=== PATIENT | female | born 1940 | race Caucasian/White ===

== ENCOUNTER 2017-05-15 21:31 | Inpatient (IN) | payer MEDICARE ==
[~2017-05-15] VITALS: Ht 160 cm; Wt 48.5 kg
[2017-05-15 23:30] VITALS: BP 143/74
[2017-05-16] VITALS (25 sets, daily range): BP systolic 89–172; BP diastolic 57–107
[2017-05-16] MEDS ORDERED: THIAMINE 100 MG in IV NORMAL SALINE 50ML 50 ML IV ONE (00:15)
[2017-05-16 00:24] LABS: BASO % 0 % (0-3); EOS % 0 % (0-3); HEMATOCRIT 38.1 % (36.0-47.0); HEMOGLOBIN 13.4 g/dL (12.0-15.5); LYMPH # 0.6 x10^3/uL (1.0-4.8); LYMPH % 5 % (24-48); MEAN CORPUSCULAR HEMOGLOBIN 31 pg (25-35); MEAN CORPUSCULAR HGB CONC 35 g/dL (31-37); MEAN CORPUSCULAR VOLUME 88 fL (79-100); MONO % 7 % (0-9); NEUT % 88 % (31-73); PLATELET COUNT 172 x10^3/uL (140-400); RED BLOOD COUNT 4.31 x10^6/uL (3.50-5.40); RED CELL DISTRIBUTION WIDTH 12.4 % (11.5-14.5); WHITE BLOOD COUNT 13.3 x10^3/uL (4.0-11.0)
[2017-05-16 00:40] LABS: ALBUMIN/GLOBULIN RATIO 0.8 (1.0-1.7); CREATININE 0.9 mg/dL (0.6-1.0); TOTAL BILIRUBIN 1.5 mg/dL (0.2-1.0)
[2017-05-16 00:45] LABS: POTASSIUM 2.7 mmol/L (3.5-5.1)
[2017-05-16] MEDS ORDERED: SODIUM CHLORIDE 3 % 300 ML IV ONE (01:15)
[2017-05-16] MEDS ORDERED: SODIUM CHLORIDE 3 % 500 ML IV ONE (01:30)
[2017-05-16] MEDS: IV NORMAL SALINE 1000ML BAG 1,000 ML IV SCH ×3 (01:36→20:43)
[2017-05-16] MEDS: POTASSIUM CHLORIDE 10MEQ 100 ML IV SCH ×6 (02:01→23:02)
[2017-05-16] MEDS ORDERED: METO50TA2 PO (04:29)
[2017-05-16] MEDS ORDERED: CRESTOR20 MG PO (04:29)
[2017-05-16] MEDS ORDERED: GABA-586 PO (04:29)
[2017-05-16] MEDS ORDERED: IRBE300T3 PO (04:29)
[2017-05-16] MEDS ORDERED: HYDR25TA9 PO (04:29)
[2017-05-16 09:56] LABS: CALCIUM 8.9 mg/dL (8.5-10.1); CREATININE 0.9 mg/dL (0.6-1.0); POTASSIUM 3.6 mmol/L (3.5-5.1)
--- NOTE | 2017-05-16 11:00 | PDOC1 ---
History and Physical Date of Admission Date of Admission DATE: 05/16/17 TIME: 0900 Identification/Chief Complaint Chief Complaint Found down Hyponatremia Problems: Source Source: Chart review History of Present Illness History of Present Illness Mrs Orozco is a 76 y/o woman who had been found down on the by her son at home, barely responsive, and had been brought to the ER at [facility]. There, her labs revealed a sodium of 107, and pt was emergently transferred to the ICU at [facility]. According to ER records, son had seen patient the the morning and she had been up and talking, stating to was going to lie down. At [facility], she was responsive to some degree, but not oriented, moving about constantly, complaining of headache. Per son, she is taking her prescription meds, incl BP meds "as needed". she has a distant history of alcohol abuse, apparently not recent. Past Medical History Past Medical History unable to obtain, pt obtunded Cardiovascular: HTN, Other (AAA repair) Heme/Onc: Cancer (colon) Musculoskeletal: low back pain Family History Family History: Family History Unknown Current Medications Current Medications Current Medications Thiamine HCl 100 mg/Sodium Chloride 51 ml @ 102 mls/hr 1X ONCE IV Last administered on 05/16/17 01:36; Start 05/16/17 at 00:15; Stop 05/16/17 at 00:44 ; Status DC Lorazepam (Ativan) 0.5 mg PRN Q4HRS PRN IV ANXIETY / AGITATION; Start 05/16/17 at 00:00 Lorazepam (Ativan) 1 mg PRN Q4HRS PRN IV ANXIETY / AGITATION Last administered on 05/16/17 01:53; Start 05/16/17 at 00:00 Sodium Chloride 1,000 ml @ 125 mls/hr Q8H IV Last administered on 05/16/17 01 :36; Start 05/16/17 at 00:00 Sodium Chloride 500 ml @ 50 mls/hr 1X ONCE IV ; Start 05/16/17 at 01:30; Stop 05/16/17 at 07:48; Status DC Sodium Chloride 300 ml @ 50 mls/hr 1X ONCE IV Last administered on 05/16/17 01:28; Start 05/16/17 at 01:15; Stop 05/16/17 at 07:14; Status DC Potassium Chloride 100 ml @ 100 mls/hr Q1H IV Last administered on 05/16/17t 06:33; Start 05/16/17 at 01:30; Stop 05/16/17 at 05:29; Status DC Active Scripts Active Reported Gabapentin 300 Mg Capsule 300 Mg PO DAILY PRN Irbesartan 300 Mg Tablet 1 Tab PO DAILY Crestor (Rosuvastatin Calcium) 20 Mg Tablet 1 Tab PO DAILY Hydrochlorothiazide Tablet (Hydrochlorothiazide) 25 Mg Tablet 1 Tab PO DAILY Metoprolol Tartrate 50 Mg Tablet 1 Tab PO BID Allergies Allergies: Coded Allergies: No Known Drug Allergies (Unverified , 05/16/17) ROS Review of System unable to obtain, obtunded Physical Exam General: Other (obtunded, no sensical rverbal responses) HEENT: Atraumatic, EOMI Heart: RRR Abdomen: Normal bowel sounds, Soft, No tenderness Extremities: No clubbing, No cyanosis, No edema, Other (moves all) Skin: No rashes Neuro: Normal tone Psych/Mental Status: Other (obtunded) Vitals Vitals Vital Signs Date Time Temp Pulse Resp B/P (MAP) Pulse Ox O2 Delivery O2 Flow Rate FiO2 05/16/17 07:00 76 18 155/107 (123) 95 Room Air 05/16/17 04:00 98.1 98.1 Labs Labs Laboratory Tests Test 05/16/17 00:15 05/16/17 09:10 White Blood Count 13.3 x10^3/uL (4.0-11.0) Red Blood Count 4.31 x10^6/uL (3.50-5.40) Hemoglobin 13.4 g/dL (12.0-15.5) Hematocrit 38.1 % (36.0-47.0) Mean Corpuscular Volume 88 fL (79-100) Mean Corpuscular Hemoglobin 31 pg (25-35) Mean Corpuscular Hemoglobin Concent 35 g/dL (31-37) Red Cell Distribution Width 12.4 % (11.5-14.5) Platelet Count 172 x10^3/uL (140-400) Neutrophils (%) (Auto) 88 % (31-73) Lymphocytes (%) (Auto) 5 % (24-48) Monocytes (%) (Auto) 7 % (0-9) Eosinophils (%) (Auto) 0 % (0-3) Basophils (%) (Auto) 0 % (0-3) Neutrophils # (Auto) 11.8 x10^3uL (1.8-7.7) Lymphocytes # (Auto) 0.6 x10^3/uL (1.0-4.8) Monocytes # (Auto) 0.9 x10^3/uL (0.0-1.1) Eosinophils # (Auto) 0.0 x10^3/uL (0.0-0.7) Basophils # (Auto) 0.0 x10^3/uL (0.0-0.2) Sodium Level 101 mmol/L (136-145) 107 mmol/L (136-145) Potassium Level 2.7 mmol/L (3.5-5.1) 3.6 mmol/L (3.5-5.1) Chloride Level 69 mmol/L (98-107) 77 mmol/L (98-107) Carbon Dioxide Level 21 mmol/L (21-32) 25 mmol/L (21-32) Anion Gap 11 (6-14) 5 (6-14) Blood Urea Nitrogen 15 mg/dL (7-20) 12 mg/dL (7-20) Creatinine 0.9 mg/dL (0.6-1.0) 0.9 mg/dL (0.6-1.0) Estimated GFR (Cockcroft-Gault) 61.0 61.0 BUN/Creatinine Ratio 17 (6-20) Glucose Level 129 mg/dL (70-99) 116 mg/dL (70-99) Lactic Acid Level 2.0 mmol/L (0.4-2.0) Calcium Level 9.0 mg/dL (8.5-10.1) 8.9 mg/dL (8.5-10.1) Total Bilirubin 1.5 mg/dL (0.2-1.0) Aspartate Amino Transf (AST/SGOT) 63 U/L (15-37) Alanine Aminotransferase (ALT/SGPT) 28 U/L (14-59) Alkaline Phosphatase 114 U/L (46-116) Total Protein 7.0 g/dL (6.4-8.2) Albumin 3.0 g/dL (3.4-5.0) Albumin/Globulin Ratio 0.8 (1.0-1.7) Laboratory Tests Test 05/16/17 00:15 05/16/17 09:10 White Blood Count 13.3 x10^3/uL (4.0-11.0) Red Blood Count 4.31 x10^6/uL (3.50-5.40) Hemoglobin 13.4 g/dL (12.0-15.5) Hematocrit 38.1 % (36.0-47.0) Mean Corpuscular Volume 88 fL (79-100) Mean Corpuscular Hemoglobin 31 pg (25-35) Mean Corpuscular Hemoglobin Concent 35 g/dL (31-37) Red Cell Distribution Width 12.4 % (11.5-14.5) Platelet Count 172 x10^3/uL (140-400) Neutrophils (%) (Auto) 88 % (31-73) Lymphocytes (%) (Auto) 5 % (24-48) Monocytes (%) (Auto) 7 % (0-9) Eosinophils (%) (Auto) 0 % (0-3) Basophils (%) (Auto) 0 % (0-3) Neutrophils # (Auto) 11.8 x10^3uL (1.8-7.7) Lymphocytes # (Auto) 0.6 x10^3/uL (1.0-4.8) Monocytes # (Auto) 0.9 x10^3/uL (0.0-1.1) Eosinophils # (Auto) 0.0 x10^3/uL (0.0-0.7) Basophils # (Auto) 0.0 x10^3/uL (0.0-0.2) Sodium Level 101 mmol/L (136-145) 107 mmol/L (136-145) Potassium Level 2.7 mmol/L (3.5-5.1) 3.6 mmol/L (3.5-5.1) Chloride Level 69 mmol/L (98-107) 77 mmol/L (98-107) Carbon Dioxide Level 21 mmol/L (21-32) 25 mmol/L (21-32) Anion Gap 11 (6-14) 5 (6-14) Blood Urea Nitrogen 15 mg/dL (7-20) 12 mg/dL (7-20) Creatinine 0.9 mg/dL (0.6-1.0) 0.9 mg/dL (0.6-1.0) Estimated GFR (Cockcroft-Gault) 61.0 61.0 BUN/Creatinine Ratio 17 (6-20) Glucose Level 129 mg/dL (70-99) 116 mg/dL (70-99) Lactic Acid Level 2.0 mmol/L (0.4-2.0) Calcium Level 9.0 mg/dL (8.5-10.1) 8.9 mg/dL (8.5-10.1) Total Bilirubin 1.5 mg/dL (0.2-1.0) Aspartate Amino Transf (AST/SGOT) 63 U/L (15-37) Alanine Aminotransferase (ALT/SGPT) 28 U/L (14-59) Alkaline Phosphatase 114 U/L (46-116) Total Protein 7.0 g/dL (6.4-8.2) Albumin 3.0 g/dL (3.4-5.0) Albumin/Globulin Ratio 0.8 (1.0-1.7) VTE Prophylaxis Ordered VTE Prophylaxis Devices: Yes VTE Pharmacological Prophylaxi: Yes Assessment/Plan Assessment/Plan Mrs Orozco is a 76 y/o woman with minor medical problems, who was found with altered mental status due to sever hyponatremia. She has received 300ml of hypertonic saline with some improvement of her sodium from 101 to 107. Start NS at 125ml/h for now, check lytes q6h for now. avoid rapid correction of Na, as length of time of hyponatremia is unknown, but presumed prolonged. Etiology of low sodium is unclear. All other labs are completely normal. will obtain urine sodium, ADH, cortisol, TSH. CT head was negative for acute findings. suspicion of toxic ingestion is given. nephrology has been consulted. Status is critical; prognosis is guarded WISAM GLASS MD May 16, 2017 10:59
[2017-05-16] MEDS ORDERED: ONDANSETRON PF 4 MG/2 ML VIAL. IV PRN (11:15)
[2017-05-16] MEDS ORDERED: 0.9 % SODIUM CHLORIDE 10 ML DISP.SYRIN. IV PRN (11:15)
[2017-05-16] MEDS: ENOXAPARIN 40 MG/0.4 ML SYRINGE. SQ SCH (11:30)
--- NOTE | 2017-05-16 12:15 | PDOC2 ---
CONSULT Date of Consult Date of Consult DATE: 05/16/17 TIME: 12:09 Reason for Consult Reason for Consult: LOW NA Referring Physician Referring Physician: NILESH Identification/Chief Complaint Chief Complaint CONFUSION Problems: Source Source: Chart review History of Present Illness Reason for Visit: THIS IS A 76 YR OLD TAKEN TO [facility] IN [place] WITH CONFUSION. SHE IS NOTED TO HAVE A NA OF 107 THERE AND THEN TRANSFERRED TO [facility] ICU. PER FAMILY SHE IS USUALLY ALERT AND ORIENTED AND LIVES WITH HER SON AND IS ABLE TO DO ADL WITHOUT ANY PROBLEMS. MEDS REVIEWED AND SHE IS NOTED TO BE ON HCTZ. REPEAT NA HERE WAS 101. SHE WAS GIVEN SOME 3% SALINE WHICH IMPROVED NA BACK TO 107 Past Medical History Cardiovascular: HTN, Other (AAA repair) Heme/Onc: Cancer (colon) Musculoskeletal: low back pain Family History Family History: No Significant, Family History Unknown Social History Lives: with Family Current Medications Current Medications Current Medications Thiamine HCl 100 mg/Sodium Chloride 51 ml @ 102 mls/hr 1X ONCE IV Last administered on 05/16/17 01:36; Start 05/16/17 at 00:15; Stop 05/16/17 at 00:44 ; Status DC Lorazepam (Ativan) 0.5 mg PRN Q4HRS PRN IV ANXIETY / AGITATION; Start 05/16/17 at 00:00 Lorazepam (Ativan) 1 mg PRN Q4HRS PRN IV ANXIETY / AGITATION Last administered on 05/16/17 01:53; Start 05/16/17 at 00:00 Sodium Chloride 1,000 ml @ 125 mls/hr Q8H IV Last administered on 05/16/17 01 :36; Start 05/16/17 at 00:00 Sodium Chloride 500 ml @ 50 mls/hr 1X ONCE IV ; Start 05/16/17 at 01:30; Stop 05/16/17 at 07:48; Status DC Sodium Chloride 300 ml @ 50 mls/hr 1X ONCE IV Last administered on 05/16/17 01:28; Start 05/16/17 at 01:15; Stop 05/16/17 at 07:14; Status DC Potassium Chloride 100 ml @ 100 mls/hr Q1H IV Last administered on 05/16/17 06:33; Start 05/16/17 at 01:30; Stop 05/16/17 at 05:29; Status DC Ondansetron HCl (Zofran) 4 mg PRN Q6HRS PRN IV NAUSEA/VOMITING; Start 05/16/17 at 11:15 Enoxaparin Sodium (Lovenox 40mg Syringe) 40 mg Q24H SQ ; Start 05/16/17 at 11:30 Sodium Chloride (Normal Saline Flush) 3 ml QSHIFT PRN IV AFTER MEDS AND BLOOD DRAWS; Start 05/16/17 at 11:15 Active Scripts Active Reported Gabapentin 300 Mg Capsule 300 Mg PO DAILY PRN Irbesartan 300 Mg Tablet 1 Tab PO DAILY Crestor (Rosuvastatin Calcium) 20 Mg Tablet 1 Tab PO DAILY Hydrochlorothiazide Tablet (Hydrochlorothiazide) 25 Mg Tablet 1 Tab PO DAILY Metoprolol Tartrate 50 Mg Tablet 1 Tab PO BID Allergies Allergies: Coded Allergies: No Known Drug Allergies (Unverified , 05/16/17) ROS Review of System UNABLE TO OBTAIN Physical Exam General: Cooperative, No acute distress HEENT: Atraumatic, PERRLA Lungs: Clear to auscultation Heart: Regular rate, Normal S1, No murmurs Abdomen: Normal bowel sounds Skin: No breakdown Neuro: Other (CONFUSED) Psych/Mental Status: Other (CONFUSED) MUSCULOSKELETAL: Other (DIFFUSE MUSCULAR ATROPHY) Vitals VITALS Vital Signs Date Time Temp Pulse Resp B/P (MAP) Pulse Ox O2 Delivery O2 Flow Rate FiO2 05/16/17 10:00 78 19 130/73 (92) 95 Room Air 05/16/17 09:00 98.7 98.7 Labs Labs Laboratory Tests Test 05/16/17 00:15 05/16/17 03:15 05/16/17 09:10 White Blood Count 13.3 x10^3/uL (4.0-11.0) Red Blood Count 4.31 x10^6/uL (3.50-5.40) Hemoglobin 13.4 g/dL (12.0-15.5) Hematocrit 38.1 % (36.0-47.0) Mean Corpuscular Volume 88 fL (79-100) Mean Corpuscular Hemoglobin 31 pg (25-35) Mean Corpuscular Hemoglobin Concent 35 g/dL (31-37) Red Cell Distribution Width 12.4 % (11.5-14.5) Platelet Count 172 x10^3/uL (140-400) Neutrophils (%) (Auto) 88 % (31-73) Lymphocytes (%) (Auto) 5 % (24-48) Monocytes (%) (Auto) 7 % (0-9) Eosinophils (%) (Auto) 0 % (0-3) Basophils (%) (Auto) 0 % (0-3) Neutrophils # (Auto) 11.8 x10^3uL (1.8-7.7) Lymphocytes # (Auto) 0.6 x10^3/uL (1.0-4.8) Monocytes # (Auto) 0.9 x10^3/uL (0.0-1.1) Eosinophils # (Auto) 0.0 x10^3/uL (0.0-0.7) Basophils # (Auto) 0.0 x10^3/uL (0.0-0.2) Sodium Level 101 mmol/L (136-145) 107 mmol/L (136-145) Potassium Level 2.7 mmol/L (3.5-5.1) 3.6 mmol/L (3.5-5.1) Chloride Level 69 mmol/L (98-107) 77 mmol/L (98-107) Carbon Dioxide Level 21 mmol/L (21-32) 25 mmol/L (21-32) Anion Gap 11 (6-14) 5 (6-14) Blood Urea Nitrogen 15 mg/dL (7-20) 12 mg/dL (7-20) Creatinine 0.9 mg/dL (0.6-1.0) 0.9 mg/dL (0.6-1.0) Estimated GFR (Cockcroft-Gault) 61.0 61.0 BUN/Creatinine Ratio 17 (6-20) Glucose Level 129 mg/dL (70-99) 116 mg/dL (70-99) Lactic Acid Level 2.0 mmol/L (0.4-2.0) Calcium Level 9.0 mg/dL (8.5-10.1) 8.9 mg/dL (8.5-10.1) Total Bilirubin 1.5 mg/dL (0.2-1.0) Aspartate Amino Transf (AST/SGOT) 63 U/L (15-37) Alanine Aminotransferase (ALT/SGPT) 28 U/L (14-59) Alkaline Phosphatase 114 U/L (46-116) Total Protein 7.0 g/dL (6.4-8.2) Albumin 3.0 g/dL (3.4-5.0) Albumin/Globulin Ratio 0.8 (1.0-1.7) Urine Sodium 73 mmol/L (Not Estab.) Urine Potassium 73.7 mmol/L (Not Estab.) Urine Chloride 85 mmol/L (Not Estab.) Laboratory Tests Test 05/16/17 00:15 05/16/17 03:15 05/16/17 09:10 White Blood Count 13.3 x10^3/uL (4.0-11.0) Red Blood Count 4.31 x10^6/uL (3.50-5.40) Hemoglobin 13.4 g/dL (12.0-15.5) Hematocrit 38.1 % (36.0-47.0) Mean Corpuscular Volume 88 fL (79-100) Mean Corpuscular Hemoglobin 31 pg (25-35) Mean Corpuscular Hemoglobin Concent 35 g/dL (31-37) Red Cell Distribution Width 12.4 % (11.5-14.5) Platelet Count 172 x10^3/uL (140-400) Neutrophils (%) (Auto) 88 % (31-73) Lymphocytes (%) (Auto) 5 % (24-48) Monocytes (%) (Auto) 7 % (0-9) Eosinophils (%) (Auto) 0 % (0-3) Basophils (%) (Auto) 0 % (0-3) Neutrophils # (Auto) 11.8 x10^3uL (1.8-7.7) Lymphocytes # (Auto) 0.6 x10^3/uL (1.0-4.8) Monocytes # (Auto) 0.9 x10^3/uL (0.0-1.1) Eosinophils # (Auto) 0.0 x10^3/uL (0.0-0.7) Basophils # (Auto) 0.0 x10^3/uL (0.0-0.2) Sodium Level 101 mmol/L (136-145) 107 mmol/L (136-145) Potassium Level 2.7 mmol/L (3.5-5.1) 3.6 mmol/L (3.5-5.1) Chloride Level 69 mmol/L (98-107) 77 mmol/L (98-107) Carbon Dioxide Level 21 mmol/L (21-32) 25 mmol/L (21-32) Anion Gap 11 (6-14) 5 (6-14) Blood Urea Nitrogen 15 mg/dL (7-20) 12 mg/dL (7-20) Creatinine 0.9 mg/dL (0.6-1.0) 0.9 mg/dL (0.6-1.0) Estimated GFR (Cockcroft-Gault) 61.0 61.0 BUN/Creatinine Ratio 17 (6-20) Glucose Level 129 mg/dL (70-99) 116 mg/dL (70-99) Lactic Acid Level 2.0 mmol/L (0.4-2.0) Calcium Level 9.0 mg/dL (8.5-10.1) 8.9 mg/dL (8.5-10.1) Total Bilirubin 1.5 mg/dL (0.2-1.0) Aspartate Amino Transf (AST/SGOT) 63 U/L (15-37) Alanine Aminotransferase (ALT/SGPT) 28 U/L (14-59) Alkaline Phosphatase 114 U/L (46-116) Total Protein 7.0 g/dL (6.4-8.2) Albumin 3.0 g/dL (3.4-5.0) Albumin/Globulin Ratio 0.8 (1.0-1.7) Urine Sodium 73 mmol/L (Not Estab.) Urine Potassium 73.7 mmol/L (Not Estab.) Urine Chloride 85 mmol/L (Not Estab.) Assessment/Plan Assessment/Plan IMP HYPOVOLEMIA HYPONATREMIA MET ENCEPHALOPATHY PLAN ISOTONIC SALINE 3% SALINE OVER NIGHT URINE LYTES URINE OSMOLALITY HOLD THIAZIDE DIURETICS SEIZURE PRECAUTIONS D/W ATTENDING UPDATED FAMILY KEREN HAMEED MD May 16, 2017 12:15
[2017-05-16 12:49] LABS: CREATININE 0.8 mg/dL (0.6-1.0); GFR 69.9
[2017-05-16 12:51] LABS: POTASSIUM 4.1 mmol/L (3.5-5.1)
[2017-05-16 19:53] LABS: CALCIUM 10.1 mg/dL (8.5-10.1); CREATININE 0.7 mg/dL (0.6-1.0); GFR 81.6; POTASSIUM 3.2 mmol/L (3.5-5.1)
[2017-05-16] MEDS ORDERED: SODIUM CHLORIDE 3 % 200 ML IV ONE (21:00)
[2017-05-17] VITALS (24 sets, daily range): BP systolic 93–159; BP diastolic 55–98
[2017-05-17 01:48] LABS: CALCIUM 8.4 mg/dL (8.5-10.1); CREATININE 0.7 mg/dL (0.6-1.0); GFR 81.6; POTASSIUM 3.7 mmol/L (3.5-5.1)
[2017-05-17 06:48] LABS: BASO % 1 % (0-3); EOS % 0 % (0-3); HEMATOCRIT 33.9 % (36.0-47.0); HEMOGLOBIN 12.2 g/dL (12.0-15.5); LYMPH # 0.9 x10^3/uL (1.0-4.8); LYMPH % 9 % (24-48); MEAN CORPUSCULAR HEMOGLOBIN 32 pg (25-35); MEAN CORPUSCULAR HGB CONC 36 g/dL (31-37); MEAN CORPUSCULAR VOLUME 88 fL (79-100); MONO % 7 % (0-9); NEUT % 83 % (31-73); PLATELET COUNT 137 x10^3/uL (140-400); RED BLOOD COUNT 3.84 x10^6/uL (3.50-5.40); RED CELL DISTRIBUTION WIDTH 12.3 % (11.5-14.5); WHITE BLOOD COUNT 9.7 x10^3/uL (4.0-11.0)
[2017-05-17 06:56] LABS: ALBUMIN 2.9 g/dL (3.4-5.0); CALCIUM 8.3 mg/dL (8.5-10.1); CREATININE 0.6 mg/dL (0.6-1.0); GFR 97.5; POTASSIUM 3.5 mmol/L (3.5-5.1); TOTAL PROTEIN 5.9 g/dL (6.4-8.2)
[2017-05-17] MEDS: IV NORMAL SALINE 1000ML BAG 1,000 ML IV SCH ×2 (07:41→21:19)
--- NOTE | 2017-05-17 08:50 | RAD ---
Portable chest, 05/16/2017: History: Check PICC line placement No previous chest radiographs are available at this time for comparison purposes. A right PICC is in place extending into the upper aspect of the superior vena cava near the junction of the innominate veins. The heart size and pulmonary vascularity are normal. There is moderate calcific plaquing and tortuosity of the thoracic aorta. There appear to be minimal parenchymal scars. No acute infiltrate is seen. There is no evidence of pleural fluid. The bony structures are demineralized. IMPRESSION: 1. The right PICC extends into the upper aspect of the superior vena cava. 2. Moderate aortic atherosclerosis. 3. No acute abnormality is detected.
--- NOTE | 2017-05-17 09:11 | PDOC ---
PROGRESS NOTES Chief Complaint Chief Complaint Hyponatremia ASSESSMENT AND PLAN: 1. Hyponatremia: improving. increase IVF as increase has plateaued. urine sodium inappropriatly high, Cortisol appropriately high, TSH WNL. suspect diuretic O/D with pt's "as needed" medication habits. appreciate Dr Vazquez's help w/management 2. AMS: 2/2 above 3. Myositis: elevated CK, most likely 2/2 above 4. Hypokalemia: repletes as per protocol 5. Agitation: minimize sedation as possible 6. Prophylaxis: H2b, lovenox History of Present Illness History of Present Illness denies pain, very confused Vitals Vitals Vital Signs Date Time Temp Pulse Resp B/P (MAP) Pulse Ox O2 Delivery O2 Flow Rate FiO2 05/17/17 08:00 97.8 80 22 131/74 (93) 95 Room Air 97.8 Physical Exam General: Cooperative, No acute distress, Other (more awake, with hesitation can state her name. ) Heart: Regular rate, No murmurs Lungs: Clear Abdomen: Normal bowel sounds Extremities: No clubbing, No cyanosis, No edema, Other (moves all) Skin: No rashes Labs LABS Laboratory Tests Test 05/16/17 09:10 05/16/17 11:50 05/16/17 18:30 05/17/17 00:45 Sodium Level 107 mmol/L (136-145) 113 mmol/L (136-145) 110 mmol/L (136-145) 115 mmol/L (136-145) Potassium Level 3.6 mmol/L (3.5-5.1) 4.1 mmol/L (3.5-5.1) 3.2 mmol/L (3.5-5.1) 3.7 mmol/L (3.5-5.1) Chloride Level 77 mmol/L (98-107) 79 mmol/L (98-107) 80 mmol/L (98-107) 84 mmol/L (98-107) Carbon Dioxide Level 25 mmol/L (21-32) 27 mmol/L (21-32) 24 mmol/L (21-32) 24 mmol/L (21-32) Anion Gap 5 (6-14) 7 (6-14) 6 (6-14) 7 (6-14) Blood Urea Nitrogen 12 mg/dL (7-20) 11 mg/dL (7-20) 9 mg/dL (7-20) 8 mg/dL (7-20) Creatinine 0.9 mg/dL (0.6-1.0) 0.8 mg/dL (0.6-1.0) 0.7 mg/dL (0.6-1.0) 0.7 mg/dL (0.6-1.0) Estimated GFR (Cockcroft-Gault) 61.0 69.9 81.6 81.6 Glucose Level 116 mg/dL (70-99) 98 mg/dL (70-99) 102 mg/dL (70-99) 93 mg/dL (70-99) Calcium Level 8.9 mg/dL (8.5-10.1) 9.0 mg/dL (8.5-10.1) 10.1 mg/dL (8.5-10.1) 8.4 mg/dL (8.5-10.1) Thyroid Stimulating Hormone (TSH) 3.641 uIU/mL (0.358-3.74) Cortisol PM Sample 25.3 ug/dL (2.3-11.9) Test 05/17/17 06:20 White Blood Count 9.7 x10^3/uL (4.0-11.0) Red Blood Count 3.84 x10^6/uL (3.50-5.40) Hemoglobin 12.2 g/dL (12.0-15.5) Hematocrit 33.9 % (36.0-47.0) Mean Corpuscular Volume 88 fL (79-100) Mean Corpuscular Hemoglobin 32 pg (25-35) Mean Corpuscular Hemoglobin Concent 36 g/dL (31-37) Red Cell Distribution Width 12.3 % (11.5-14.5) Platelet Count 137 x10^3/uL (140-400) Neutrophils (%) (Auto) 83 % (31-73) Lymphocytes (%) (Auto) 9 % (24-48) Monocytes (%) (Auto) 7 % (0-9) Eosinophils (%) (Auto) 0 % (0-3) Basophils (%) (Auto) 1 % (0-3) Neutrophils # (Auto) 8.1 x10^3uL (1.8-7.7) Lymphocytes # (Auto) 0.9 x10^3/uL (1.0-4.8) Monocytes # (Auto) 0.7 x10^3/uL (0.0-1.1) Eosinophils # (Auto) 0.0 x10^3/uL (0.0-0.7) Basophils # (Auto) 0.0 x10^3/uL (0.0-0.2) Sodium Level 115 mmol/L (136-145) Potassium Level 3.5 mmol/L (3.5-5.1) Chloride Level 84 mmol/L (98-107) Carbon Dioxide Level 25 mmol/L (21-32) Anion Gap 6 (6-14) Blood Urea Nitrogen 7 mg/dL (7-20) Creatinine 0.6 mg/dL (0.6-1.0) Estimated GFR (Cockcroft-Gault) 97.5 BUN/Creatinine Ratio 12 (6-20) Glucose Level 89 mg/dL (70-99) Calcium Level 8.3 mg/dL (8.5-10.1) Total Bilirubin 1.0 mg/dL (0.2-1.0) Aspartate Amino Transf (AST/SGOT) 81 U/L (15-37) Alanine Aminotransferase (ALT/SGPT) 34 U/L (14-59) Alkaline Phosphatase 90 U/L (46-116) Creatine Kinase 765 U/L (26-192) Total Protein 5.9 g/dL (6.4-8.2) Albumin 2.9 g/dL (3.4-5.0) Albumin/Globulin Ratio 1.0 (1.0-1.7) WISAM GLASS MD May 17, 2017 09:11
[2017-05-17] MEDS: ENOXAPARIN 40 MG/0.4 ML SYRINGE. SQ SCH (12:09)
[2017-05-17 12:18] LABS: CALCIUM 8.6 mg/dL (8.5-10.1); CREATININE 0.6 mg/dL (0.6-1.0); GFR 97.5; POTASSIUM 3.4 mmol/L (3.5-5.1)
[2017-05-17 18:32] LABS: CREATININE 0.6 mg/dL (0.6-1.0); GFR 97.5; POTASSIUM 3.3 mmol/L (3.5-5.1)
[2017-05-17] MEDS: FAMOTIDINE 20 MG/2 ML VIAL IVP SCH (21:18)
[2017-05-18] VITALS (17 sets, daily range): BP systolic 121–155; BP diastolic 70–92
[2017-05-18 00:51] LABS: CALCIUM 8.1 mg/dL (8.5-10.1); CREATININE 0.6 mg/dL (0.6-1.0); GFR 97.5; POTASSIUM 3.2 mmol/L (3.5-5.1)
[2017-05-18] MEDS: IV NORMAL SALINE 1000ML BAG 1,000 ML IV SCH ×3 (05:25→20:57)
[2017-05-18 05:47] LABS: BASO # 0.1 x10^3/uL (0.0-0.2); BASO % 2 % (0-3); EOS % 1 % (0-3); HEMOGLOBIN 11.9 g/dL (12.0-15.5); LYMPH # 0.8 x10^3/uL (1.0-4.8); LYMPH % 11 % (24-48); MEAN CORPUSCULAR HEMOGLOBIN 32 pg (25-35); MEAN CORPUSCULAR HGB CONC 36 g/dL (31-37); MEAN CORPUSCULAR VOLUME 88 fL (79-100); MONO % 6 % (0-9); NEUT % 80 % (31-73); PLATELET COUNT 125 x10^3/uL (140-400); RED BLOOD COUNT 3.74 x10^6/uL (3.50-5.40); RED CELL DISTRIBUTION WIDTH 12.8 % (11.5-14.5); WHITE BLOOD COUNT 7.3 x10^3/uL (4.0-11.0)
[2017-05-18 06:10] LABS: CALCIUM 7.8 mg/dL (8.5-10.1); CREATININE 0.6 mg/dL (0.6-1.0); GFR 97.5; POTASSIUM 3.1 mmol/L (3.5-5.1)
--- NOTE | 2017-05-18 07:49 | PDOC ---
PROGRESS NOTES Chief Complaint Chief Complaint Hyponatremia ASSESSMENT AND PLAN: 1. Hyponatremia: improving. urine sodium inappropriatly high, Cortisol appropriately high, TSH WNL. suspect diuretic O/D with pt's "as needed" medication habits. on NS IVF. with fluid repletion, may need to switch to fluid restriction for SIADH 2. AMS: 2/2 above; much improved. still some memory issues, but able to hold conversation. 3. Agitation: resolved. 4. Hypokalemia: replete as per protocol 5. Myositis: elevated CK, most likely 2/2 above 6. Nutrition: NPO for now. speech eval today or tomorrow 7. Prophylaxis: H2b, lovenox History of Present Illness History of Present Illness denies pain, very confused Vitals Vitals Vital Signs Date Time Temp Pulse Resp B/P (MAP) Pulse Ox O2 Delivery O2 Flow Rate FiO2 05/18/17 06:00 69 16 135/92 (106) 96 Room Air 05/18/17 04:00 98.2 98.2 Physical Exam General: Alert, Cooperative, No acute distress Heart: Regular rate, No murmurs Lungs: Clear Abdomen: Normal bowel sounds Extremities: No clubbing, No edema Skin: No rashes Labs LABS Laboratory Tests Test 05/17/17 12:00 05/17/17 18:00 05/18/17 00:22 05/18/17 04:55 Sodium Level 118 mmol/L (136-145) 122 mmol/L (136-145) 122 mmol/L (136-145) 124 mmol/L (136-145) Potassium Level 3.4 mmol/L (3.5-5.1) 3.3 mmol/L (3.5-5.1) 3.2 mmol/L (3.5-5.1) 3.1 mmol/L (3.5-5.1) Chloride Level 85 mmol/L (98-107) 89 mmol/L (98-107) 90 mmol/L (98-107) 91 mmol/L (98-107) Carbon Dioxide Level 25 mmol/L (21-32) 25 mmol/L (21-32) 25 mmol/L (21-32) 25 mmol/L (21-32) Anion Gap 8 (6-14) 8 (6-14) 7 (6-14) 8 (6-14) Blood Urea Nitrogen 7 mg/dL (7-20) 6 mg/dL (7-20) 6 mg/dL (7-20) 6 mg/dL (7- 20) Creatinine 0.6 mg/dL (0.6-1.0) 0.6 mg/dL (0.6-1.0) 0.6 mg/dL (0.6-1.0) 0.6 mg/dL (0.6-1.0) Estimated GFR (Cockcroft-Gault) 97.5 97.5 97.5 97.5 Glucose Level 89 mg/dL (70-99) 80 mg/dL (70-99) 81 mg/dL (70-99) 76 mg/dL (70-99) Calcium Level 8.6 mg/dL (8.5-10.1) 8.0 mg/dL (8.5-10.1) 8.1 mg/dL (8.5-10.1) 7.8 mg/dL (8.5-10.1) Test 05/18/17 05:33 White Blood Count 7.3 x10^3/uL (4.0-11.0) Red Blood Count 3.74 x10^6/uL (3.50-5.40) Hemoglobin 11.9 g/dL (12.0-15.5) Hematocrit 33.0 % (36.0-47.0) Mean Corpuscular Volume 88 fL (79-100) Mean Corpuscular Hemoglobin 32 pg (25-35) Mean Corpuscular Hemoglobin Concent 36 g/dL (31-37) Red Cell Distribution Width 12.8 % (11.5-14.5) Platelet Count 125 x10^3/uL (140-400) Neutrophils (%) (Auto) 80 % (31-73) Lymphocytes (%) (Auto) 11 % (24-48) Monocytes (%) (Auto) 6 % (0-9) Eosinophils (%) (Auto) 1 % (0-3) Basophils (%) (Auto) 2 % (0-3) Neutrophils # (Auto) 5.8 x10^3uL (1.8-7.7) Lymphocytes # (Auto) 0.8 x10^3/uL (1.0-4.8) Monocytes # (Auto) 0.4 x10^3/uL (0.0-1.1) Eosinophils # (Auto) 0.1 x10^3/uL (0.0-0.7) Basophils # (Auto) 0.1 x10^3/uL (0.0-0.2) WISAM GLASS MD May 18, 2017 07:49
[2017-05-18] MEDS: ENOXAPARIN 40 MG/0.4 ML SYRINGE. SQ SCH (13:15)
[2017-05-18] MEDS ORDERED: POTASSIUM CHLORIDE 20 MEQ TABLET.ER. PO ONE (20:15)
[2017-05-18] MEDS: FAMOTIDINE 20 MG/2 ML VIAL IVP SCH (20:48)
[2017-05-18] MEDS: ATORVASTATIN CALCIUM 40 MG TABLET. PO SCH (20:48)
[2017-05-18] MEDS: METOPROLOL TART IMMED RELEASE 50 MG TABLET. PO SCH (20:49)
[2017-05-18] MEDS ORDERED: GABAPENTIN 300 MG CAPSULE. PO PRN (21:00)
--- NOTE | 2017-05-18 23:59 | PDOC ---
Provider Note Provider Note RENAL F/U : EDY S : More alert. No active CP, SOA or new c/o O : VSS BP better/stable Alert. Neck : Supple Lings : Decreased bases. Non labored. CVS : RRR Abd : Portly. No masses. Stable edema/trace. Neuro ; more alert. Labs reviewed. A/P : HYPONATREMIA HTN w CKD HYPOTENSION MENTAL STATUS CHANGES. Overall improved. Supportive care. Na now mid 120s Out of ICU Labs. Chris Snow M.D. CHRIS SNOW MD May 18, 2017 23:58
[2017-05-19 03:00] VITALS: BP 140/89
[2017-05-19 07:00] VITALS: BP 175/100
[2017-05-19 09:30] LABS: CREATININE 0.6 mg/dL (0.6-1.0); GFR 97.5
[2017-05-19] MEDS ORDERED: traMADol 50 MG TABLET PO PRN (09:30)
[2017-05-19] MEDS ORDERED: ACETAMINOPHEN 325 MG TABLET. PO PRN (09:30)
[2017-05-19] MEDS ORDERED: DOCUSATE SODIUM 100 MG CAPSULE. PO PRN (09:30)
[2017-05-19] MEDS ORDERED: MORPHINE SULFATE 2 MG/ML DISP.SYRIN. IV PRN (09:30)
[2017-05-19] MEDS ORDERED: hydrALAZINE 20 MG/ML VIAL. IVP PRN (09:30)
[2017-05-19] MEDS ORDERED: ONDANSETRON PF 4 MG/2 ML VIAL. IV PRN (09:30)
[2017-05-19 09:44] LABS: BASO # 0.1 x10^3/uL (0.0-0.2); BASO % 1 % (0-3); EOS % 2 % (0-3); HEMATOCRIT 32.8 % (36.0-47.0); HEMOGLOBIN 11.8 g/dL (12.0-15.5); LYMPH # 0.9 x10^3/uL (1.0-4.8); LYMPH % 11 % (24-48); MEAN CORPUSCULAR HEMOGLOBIN 32 pg (25-35); MEAN CORPUSCULAR HGB CONC 36 g/dL (31-37); MEAN CORPUSCULAR VOLUME 88 fL (79-100); MONO % 6 % (0-9); NEUT % 80 % (31-73); PLATELET COUNT 132 x10^3/uL (140-400); RED BLOOD COUNT 3.71 x10^6/uL (3.50-5.40); RED CELL DISTRIBUTION WIDTH 12.7 % (11.5-14.5); WHITE BLOOD COUNT 8.1 x10^3/uL (4.0-11.0)
[2017-05-19 09:52] LABS: POTASSIUM 2.7 mmol/L (3.5-5.1)
[2017-05-19] MEDS: METOPROLOL TART IMMED RELEASE 50 MG TABLET. PO SCH ×2 (09:53→20:41)
[2017-05-19] MEDS: LOSARTAN POTASSIUM 50 MG TABLET. PO SCH (09:53)
[2017-05-19] MEDS ORDERED: POTASSIUM CHLORIDE 20MEQ 50 ML IV ONE (10:30)
[2017-05-19] MEDS: POTASSIUM CHLORIDE 20MEQ 50 ML IV SCH ×2 (10:38→11:17)
[2017-05-19 11:00] VITALS: BP 150/87
[2017-05-19] MEDS: ENOXAPARIN 40 MG/0.4 ML SYRINGE. SQ SCH (11:18)
--- NOTE | 2017-05-19 11:23 | PDOC ---
PROGRESS NOTES Chief Complaint Chief Complaint Hyponatremia ASSESSMENT AND PLAN: 1. Hyponatremia: 2/2 low Salt intake likekly 2. AMS: 2/2 above; much improved. still some memory issues, but able to hold conversation. 3. Agitation: resolved. 4. Hypokalemia: replete as per protocol 5. Myositis: elevated CK, most likely 2/2 above plan: fu with renal change ivf to k + Ns 75cc/j bmp daily ptot plan dc tmr dc martell dvt , gi ppx History of Present Illness History of Present Illness looks tired mild confused Vitals Vitals Vital Signs Date Time Temp Pulse Resp B/P (MAP) Pulse Ox O2 Delivery O2 Flow Rate FiO2 05/19/17 11:00 97.7 73 18 150/87 (108) 92 Room Air 97.7 Physical Exam General: Alert, Cooperative, No acute distress Heart: Regular rate, No murmurs Lungs: Clear Abdomen: Normal bowel sounds Extremities: No clubbing, No edema Skin: No rashes Labs LABS Laboratory Tests Test 05/18/17 12:20 05/18/17 18:10 05/19/17 00:15 05/19/17 08:50 Sodium Level 125 mmol/L (136-145) 126 mmol/L (136-145) 127 mmol/L (136-145) 130 mmol/L (136-145) White Blood Count 8.1 x10^3/uL (4.0-11.0) Red Blood Count 3.71 x10^6/uL (3.50-5.40) Hemoglobin 11.8 g/dL (12.0-15.5) Hematocrit 32.8 % (36.0-47.0) Mean Corpuscular Volume 88 fL (79-100) Mean Corpuscular Hemoglobin 32 pg (25-35) Mean Corpuscular Hemoglobin Concent 36 g/dL (31-37) Red Cell Distribution Width 12.7 % (11.5-14.5) Platelet Count 132 x10^3/uL (140-400) Neutrophils (%) (Auto) 80 % (31-73) Lymphocytes (%) (Auto) 11 % (24-48) Monocytes (%) (Auto) 6 % (0-9) Eosinophils (%) (Auto) 2 % (0-3) Basophils (%) (Auto) 1 % (0-3) Neutrophils # (Auto) 6.4 x10^3uL (1.8-7.7) Lymphocytes # (Auto) 0.9 x10^3/uL (1.0-4.8) Monocytes # (Auto) 0.5 x10^3/uL (0.0-1.1) Eosinophils # (Auto) 0.2 x10^3/uL (0.0-0.7) Basophils # (Auto) 0.1 x10^3/uL (0.0-0.2) Potassium Level 2.7 mmol/L (3.5-5.1) Chloride Level 96 mmol/L (98-107) Carbon Dioxide Level 26 mmol/L (21-32) Anion Gap 8 (6-14) Blood Urea Nitrogen 5 mg/dL (7-20) Creatinine 0.6 mg/dL (0.6-1.0) Estimated GFR (Cockcroft-Gault) 97.5 Glucose Level 103 mg/dL (70-99) Calcium Level 8.0 mg/dL (8.5-10.1) Review of Systems Review of Systems no fever, chills, sob or chest pain Comment Review of Relevant I have reviewed the following items yanet (where applicable) has been applied. Labs Laboratory Tests Test 05/17/17 12:00 05/17/17 18:00 05/18/17 00:22 05/18/17 04:55 Sodium Level 118 mmol/L (136-145) 122 mmol/L (136-145) 122 mmol/L (136-145) 124 mmol/L (136-145) Potassium Level 3.4 mmol/L (3.5-5.1) 3.3 mmol/L (3.5-5.1) 3.2 mmol/L (3.5-5.1) 3.1 mmol/L (3.5-5.1) Chloride Level 85 mmol/L (98-107) 89 mmol/L (98-107) 90 mmol/L (98-107) 91 mmol/L (98-107) Carbon Dioxide Level 25 mmol/L (21-32) 25 mmol/L (21-32) 25 mmol/L (21-32) 25 mmol/L (21-32) Anion Gap 8 (6-14) 8 (6-14) 7 (6-14) 8 (6-14) Blood Urea Nitrogen 7 mg/dL (7-20) 6 mg/dL (7-20) 6 mg/dL (7-20) 6 mg/dL (7- 20) Creatinine 0.6 mg/dL (0.6-1.0) 0.6 mg/dL (0.6-1.0) 0.6 mg/dL (0.6-1.0) 0.6 mg/dL (0.6-1.0) Estimated GFR (Cockcroft-Gault) 97.5 97.5 97.5 97.5 Glucose Level 89 mg/dL (70-99) 80 mg/dL (70-99) 81 mg/dL (70-99) 76 mg/dL (70-99) Calcium Level 8.6 mg/dL (8.5-10.1) 8.0 mg/dL (8.5-10.1) 8.1 mg/dL (8.5-10.1) 7.8 mg/dL (8.5-10.1) Test 05/18/17 05:33 05/18/17 12:20 05/18/17 18:10 05/19/17 00:15 White Blood Count 7.3 x10^3/uL (4.0-11.0) Red Blood Count 3.74 x10^6/uL (3.50-5.40) Hemoglobin 11.9 g/dL (12.0-15.5) Hematocrit 33.0 % (36.0-47.0) Mean Corpuscular Volume 88 fL (79-100) Mean Corpuscular Hemoglobin 32 pg (25-35) Mean Corpuscular Hemoglobin Concent 36 g/dL (31-37) Red Cell Distribution Width 12.8 % (11.5-14.5) Platelet Count 125 x10^3/uL (140-400) Neutrophils (%) (Auto) 80 % (31-73) Lymphocytes (%) (Auto) 11 % (24-48) Monocytes (%) (Auto) 6 % (0-9) Eosinophils (%) (Auto) 1 % (0-3) Basophils (%) (Auto) 2 % (0-3) Neutrophils # (Auto) 5.8 x10^3uL (1.8-7.7) Lymphocytes # (Auto) 0.8 x10^3/uL (1.0-4.8) Monocytes # (Auto) 0.4 x10^3/uL (0.0-1.1) Eosinophils # (Auto) 0.1 x10^3/uL (0.0-0.7) Basophils # (Auto) 0.1 x10^3/uL (0.0-0.2) Sodium Level 125 mmol/L (136-145) 126 mmol/L (136-145) 127 mmol/L (136-145) Test 05/19/17 08:50 White Blood Count 8.1 x10^3/uL (4.0-11.0) Red Blood Count 3.71 x10^6/uL (3.50-5.40) Hemoglobin 11.8 g/dL (12.0-15.5) Hematocrit 32.8 % (36.0-47.0) Mean Corpuscular Volume 88 fL (79-100) Mean Corpuscular Hemoglobin 32 pg (25-35) Mean Corpuscular Hemoglobin Concent 36 g/dL (31-37) Red Cell Distribution Width 12.7 % (11.5-14.5) Platelet Count 132 x10^3/uL (140-400) Neutrophils (%) (Auto) 80 % (31-73) Lymphocytes (%) (Auto) 11 % (24-48) Monocytes (%) (Auto) 6 % (0-9) Eosinophils (%) (Auto) 2 % (0-3) Basophils (%) (Auto) 1 % (0-3) Neutrophils # (Auto) 6.4 x10^3uL (1.8-7.7) Lymphocytes # (Auto) 0.9 x10^3/uL (1.0-4.8) Monocytes # (Auto) 0.5 x10^3/uL (0.0-1.1) Eosinophils # (Auto) 0.2 x10^3/uL (0.0-0.7) Basophils # (Auto) 0.1 x10^3/uL (0.0-0.2) Sodium Level 130 mmol/L (136-145) Potassium Level 2.7 mmol/L (3.5-5.1) Chloride Level 96 mmol/L (98-107) Carbon Dioxide Level 26 mmol/L (21-32) Anion Gap 8 (6-14) Blood Urea Nitrogen 5 mg/dL (7-20) Creatinine 0.6 mg/dL (0.6-1.0) Estimated GFR (Cockcroft-Gault) 97.5 Glucose Level 103 mg/dL (70-99) Calcium Level 8.0 mg/dL (8.5-10.1) Laboratory Tests Test 05/18/17 12:20 05/18/17 18:10 05/19/17 00:15 05/19/17 08:50 Sodium Level 125 mmol/L (136-145) 126 mmol/L (136-145) 127 mmol/L (136-145) 130 mmol/L (136-145) White Blood Count 8.1 x10^3/uL (4.0-11.0) Red Blood Count 3.71 x10^6/uL (3.50-5.40) Hemoglobin 11.8 g/dL (12.0-15.5) Hematocrit 32.8 % (36.0-47.0) Mean Corpuscular Volume 88 fL (79-100) Mean Corpuscular Hemoglobin 32 pg (25-35) Mean Corpuscular Hemoglobin Concent 36 g/dL (31-37) Red Cell Distribution Width 12.7 % (11.5-14.5) Platelet Count 132 x10^3/uL (140-400) Neutrophils (%) (Auto) 80 % (31-73) Lymphocytes (%) (Auto) 11 % (24-48) Monocytes (%) (Auto) 6 % (0-9) Eosinophils (%) (Auto) 2 % (0-3) Basophils (%) (Auto) 1 % (0-3) Neutrophils # (Auto) 6.4 x10^3uL (1.8-7.7) Lymphocytes # (Auto) 0.9 x10^3/uL (1.0-4.8) Monocytes # (Auto) 0.5 x10^3/uL (0.0-1.1) Eosinophils # (Auto) 0.2 x10^3/uL (0.0-0.7) Basophils # (Auto) 0.1 x10^3/uL (0.0-0.2) Potassium Level 2.7 mmol/L (3.5-5.1) Chloride Level 96 mmol/L (98-107) Carbon Dioxide Level 26 mmol/L (21-32) Anion Gap 8 (6-14) Blood Urea Nitrogen 5 mg/dL (7-20) Creatinine 0.6 mg/dL (0.6-1.0) Estimated GFR (Cockcroft-Gault) 97.5 Glucose Level 103 mg/dL (70-99) Calcium Level 8.0 mg/dL (8.5-10.1) Medications Current Medications Thiamine HCl 100 mg/Sodium Chloride 51 ml @ 102 mls/hr 1X ONCE IV Last administered on 05/16/17 01:36; Start 05/16/17 at 00:15; Stop 05/16/17 at 00:44 ; Status DC Lorazepam (Ativan) 0.5 mg PRN Q4HRS PRN IV ANXIETY / AGITATION; Start 05/16/17 at 00:00 Lorazepam (Ativan) 1 mg PRN Q4HRS PRN IV ANXIETY / AGITATION Last administered on 05/16/17 22:24; Start 05/16/17 at 00:00; Stop 05/17/17 at 09:07; Status DC Sodium Chloride 1,000 ml @ 75 mls/hr [id number] IV Last administered on 05/18/17 20:57; Start 05/16/17 at 00:00 Sodium Chloride 500 ml @ 50 mls/hr 1X ONCE IV ; Start 05/16/17 at 01:30; Stop 05/17/17 at 02:37; Status DC Sodium Chloride 300 ml @ 50 mls/hr 1X ONCE IV Last administered on 05/16/17 01:28; Start 05/16/17 at 01:15; Stop 05/16/17 at 07:14; Status DC Potassium Chloride 100 ml @ 100 mls/hr Q1H IV Last administered on 05/16/17 06:33; Start 05/16/17 at 01:30; Stop 05/16/17 at 05:29; Status DC Ondansetron HCl (Zofran) 4 mg PRN Q6HRS PRN IV NAUSEA/VOMITING; Start 05/16/17 at 11:15 Enoxaparin Sodium (Lovenox 40mg Syringe) 40 mg Q24H SQ Last administered on 05/18 13:15; Start 05/16/17 at 11:30 Sodium Chloride (Normal Saline Flush) 3 ml QSHIFT PRN IV AFTER MEDS AND BLOOD DRAWS; Start 05/16/17 at 11:15 Potassium Chloride 100 ml @ 100 mls/hr Q1H IV Last administered on 05/16/17 23:02; Start 05/16/17 at 21:00; Stop 05/16/17 at 22:59; Status DC Sodium Chloride 200 ml @ 30 mls/hr 1X ONCE IV Last administered on 05/16/17 20:57; Start 05/16/17 at 21:00; Stop 05/17/17 at 03:39; Status DC Famotidine (Pepcid) 20 mg QHS IVP Last administered on 05/18/17 20:48; Start at 21:00; Stop 05/19/17 at 09:31; Status DC Metoprolol Tartrate (Lopressor) 50 mg BID PO Last administered on 05/19/17 09: 53; Start 05/18/17 at 21:00 Gabapentin (Neurontin) 300 mg PRN DAILY PRN PO Neuropathy pain; Start 05/18/17 at 21:00 Losartan Potassium (Cozaar) 100 mg DAILY PO Last administered on 05/19/17 09:53 ; Start 05/19/17 at 09:00 Atorvastatin Calcium (Lipitor) 80 mg QHS PO Last administered on 05/18/17 20:48 ; Start 05/18/17 at 21:00 Potassium Chloride (Klor-Con) 40 meq 1X ONCE PO Last administered on 05/18/17 20:48; Start 05/18/17 at 20:15; Stop 05/18/17 at 20:16; Status DC Famotidine (Pepcid) 20 mg QHS PO ; Start 05/19/17 at 21:00 Acetaminophen (Tylenol) 650 mg PRN Q6HRS PRN PO FEVER; Start 05/19/17 at 09:30 Ondansetron HCl (Zofran) 4 mg PRN Q6HRS PRN IV NAUSEA/VOMITING; Start 05/19/17 at 09:30 Morphine Sulfate 2 mg PRN Q2HR PRN IV PAIN; Start 05/19/17 at 09:30 Tramadol HCl (Ultram) 50 mg PRN Q6HRS PRN PO PAIN; Start 05/19/17 at 09:30 Hydralazine HCl (Apresoline) 10 mg PRN Q4HRS PRN IVP ELEVATED BP, SEE COMMENTS ; Start 05/19/17 at 09:30 Docusate Sodium (Colace) 100 mg PRN DAILY PRN PO CONSTIPATION; Start 05/19/17 at 09:30 Potassium Chloride 50 ml @ 50 mls/hr Q1H IV Last administered on 05/19/17t 11:17 ; Start 05/19/17 at 10:30; Stop 05/19/17 at 12:29 Potassium Chloride 50 ml @ 50 mls/hr 1X ONCE IV ; Start 05/19/17 at 10:30; Stop 05/19/17 at 11:29; Status UNV Active Scripts Active Reported Gabapentin 300 Mg Capsule 300 Mg PO DAILY PRN Irbesartan 300 Mg Tablet 1 Tab PO DAILY Crestor (Rosuvastatin Calcium) 20 Mg Tablet 1 Tab PO DAILY Hydrochlorothiazide Tablet (Hydrochlorothiazide) 25 Mg Tablet 1 Tab PO DAILY Metoprolol Tartrate 50 Mg Tablet 1 Tab PO BID Vitals/I & O Vital Sign - Last 24 Hours 05/18/17 05/18/17 05/18/17 05/18/17 12:00 13:00 14:00 15:00 Temp 98.5 98.5 Pulse 95 108 111 Resp 21 21 18 B/P (MAP) 154/80 (104) 153/71 (98) 122/70 (87) Pulse Ox 96 96 94 O2 Delivery Room Air Room Air Room Air Room Air 05/18/17 05/18/17 05/18/17 05/18/17 16:07 19:00 20:08 20:49 Temp 97.9 97.9 Pulse 98 98 Resp 16 B/P (MAP) 128/84 (99) 128/84 Pulse Ox 97 O2 Delivery Room Air Room Air Room Air 05/18/17 05/19/17 05/19/17 05/19/17 23:00 03:00 07:00 09:53 Temp 96.3 96.4 97.8 96.3 96.4 97.8 Pulse 81 92 89 89 Resp 16 16 18 B/P (MAP) 147/79 (101) 140/89 (106) 175/100 (125) 175/100 Pulse Ox 95 91 96 O2 Delivery Room Air Room Air Room Air 05/19/17 05/19/17 09:53 11:00 Temp 97.7 97.7 Pulse 89 73 Resp 18 B/P (MAP) 175/100 150/87 (108) Pulse Ox 92 O2 Delivery Room Air Intake and Output 05/18/17 05/18/17 05/19/17 15:00 23:00 07:00 Intake Total 120 ml 360 ml 0 ml Output Total 440 ml 150 ml 100 ml Balance -320 ml 210 ml -100 ml PEGGY ZULETA MD May 19, 2017 11:23
[2017-05-19] MEDS ORDERED: MAGNESIUM SULFATE 2GM 50 ML IV ONE (13:00)
[2017-05-19 15:01] VITALS: BP 149/88
[2017-05-19 19:00] VITALS: BP 167/88
[2017-05-19] MEDS: ATORVASTATIN CALCIUM 40 MG TABLET. PO SCH (20:40)
[2017-05-19] MEDS: FAMOTIDINE 20 MG TABLET. PO SCH (20:40)
[2017-05-20 06:56] LABS: CALCIUM 7.7 mg/dL (8.5-10.1); CREATININE 0.6 mg/dL (0.6-1.0); GFR 97.5; POTASSIUM 3.2 mmol/L (3.5-5.1)
[2017-05-20 07:00] VITALS: BP 177/102
[2017-05-20] MEDS: LOSARTAN POTASSIUM 50 MG TABLET. PO SCH (08:47)
[2017-05-20] MEDS: METOPROLOL TART IMMED RELEASE 50 MG TABLET. PO SCH ×2 (08:47→20:26)
[2017-05-20 09:05] VITALS: BP 179/102
[2017-05-20 09:28] LABS: BASO # 0.1 x10^3/uL (0.0-0.2); BASO % 1 % (0-3); EOS % 3 % (0-3); HEMATOCRIT 33.3 % (36.0-47.0); LYMPH # 0.9 x10^3/uL (1.0-4.8); LYMPH % 11 % (24-48); MEAN CORPUSCULAR HEMOGLOBIN 32 pg (25-35); MEAN CORPUSCULAR HGB CONC 36 g/dL (31-37); MEAN CORPUSCULAR VOLUME 89 fL (79-100); MONO % 7 % (0-9); NEUT % 78 % (31-73); PLATELET COUNT 138 x10^3/uL (140-400); RED BLOOD COUNT 3.75 x10^6/uL (3.50-5.40); RED CELL DISTRIBUTION WIDTH 12.8 % (11.5-14.5); WHITE BLOOD COUNT 8.6 x10^3/uL (4.0-11.0)
[2017-05-20] MEDS: POTASSIUM CHLORIDE 20MEQ 50 ML IV SCH ×2 (09:45→10:55)
[2017-05-20] MEDS: amLODIPine BESYLATE 5 MG TABLET PO SCH (09:48)
[2017-05-20] MEDS: MAGNESIUM OXIDE 400 MG TABLET PO SCH ×2 (09:48→20:25)
[2017-05-20] MEDS ORDERED: MAGNESIUM SULFATE 2GM 50 ML IV ONE (10:00)
[2017-05-20 10:58] VITALS: BP 117/73
[2017-05-20] MEDS: ENOXAPARIN 40 MG/0.4 ML SYRINGE. SQ SCH (11:30)
--- NOTE | 2017-05-20 12:46 | PDOC ---
PROGRESS NOTES Chief Complaint Chief Complaint Hyponatremia ASSESSMENT AND PLAN: 1. Hyponatremia: 2/2 low Salt intake likekly 2. AMS: 2/2 above; much improved. flucutating with hallucination 05/19 3. Agitation: resolved. 4. Hypokalemia: replete as per protocol 5. Myositis: elevated CK, most likely 2/2 above hypomagnesemia plan: fu with renal change ivf to k + Ns 100cc/h bmp daily ptot dc martell dvt , gi ppx replete k, mag add amlodipine given BP high may need rehab, fu PTOT first SW consult History of Present Illness History of Present Illness Na worse lower again low k low Mag hallucination overnight more tiered today, dosenot answer my questions well, worse than yesterday low po intake could not do PTOT yesterday with weakness high BP Vitals Vitals Vital Signs Date Time Temp Pulse Resp B/P (MAP) Pulse Ox O2 Delivery O2 Flow Rate FiO2 05/20/17 10:58 96.8 81 19 117/73 (88) 97 Room Air 96.8 Physical Exam General: Alert, Cooperative, No acute distress Heart: Regular rate, No murmurs Lungs: Clear Abdomen: Normal bowel sounds Extremities: No clubbing, No edema Skin: No rashes Labs LABS Laboratory Tests Test 05/20/17 06:25 White Blood Count 8.6 x10^3/uL (4.0-11.0) Red Blood Count 3.75 x10^6/uL (3.50-5.40) Hemoglobin 12.0 g/dL (12.0-15.5) Hematocrit 33.3 % (36.0-47.0) Mean Corpuscular Volume 89 fL (79-100) Mean Corpuscular Hemoglobin 32 pg (25-35) Mean Corpuscular Hemoglobin Concent 36 g/dL (31-37) Red Cell Distribution Width 12.8 % (11.5-14.5) Platelet Count 138 x10^3/uL (140-400) Neutrophils (%) (Auto) 78 % (31-73) Lymphocytes (%) (Auto) 11 % (24-48) Monocytes (%) (Auto) 7 % (0-9) Eosinophils (%) (Auto) 3 % (0-3) Basophils (%) (Auto) 1 % (0-3) Neutrophils # (Auto) 6.7 x10^3uL (1.8-7.7) Lymphocytes # (Auto) 0.9 x10^3/uL (1.0-4.8) Monocytes # (Auto) 0.6 x10^3/uL (0.0-1.1) Eosinophils # (Auto) 0.3 x10^3/uL (0.0-0.7) Basophils # (Auto) 0.1 x10^3/uL (0.0-0.2) Sodium Level 127 mmol/L (136-145) Potassium Level 3.2 mmol/L (3.5-5.1) Chloride Level 92 mmol/L (98-107) Carbon Dioxide Level 28 mmol/L (21-32) Anion Gap 7 (6-14) Blood Urea Nitrogen 4 mg/dL (7-20) Creatinine 0.6 mg/dL (0.6-1.0) Estimated GFR (Cockcroft-Gault) 97.5 Glucose Level 102 mg/dL (70-99) Calcium Level 7.7 mg/dL (8.5-10.1) Magnesium Level 1.5 mg/dL (1.8-2.4) Review of Systems Review of Systems no fever, chills, sob or chest pain Comment Review of Relevant I have reviewed the following items yanet (where applicable) has been applied. Labs Laboratory Tests Test 05/18/17 18:10 05/19/17 00:15 05/19/17 05:00 05/19/17 08:50 Sodium Level 126 mmol/L (136-145) 127 mmol/L (136-145) 130 mmol/L (136-145) Magnesium Level 1.5 mg/dL (1.8-2.4) White Blood Count 8.1 x10^3/uL (4.0-11.0) Red Blood Count 3.71 x10^6/uL (3.50-5.40) Hemoglobin 11.8 g/dL (12.0-15.5) Hematocrit 32.8 % (36.0-47.0) Mean Corpuscular Volume 88 fL (79-100) Mean Corpuscular Hemoglobin 32 pg (25-35) Mean Corpuscular Hemoglobin Concent 36 g/dL (31-37) Red Cell Distribution Width 12.7 % (11.5-14.5) Platelet Count 132 x10^3/uL (140-400) Neutrophils (%) (Auto) 80 % (31-73) Lymphocytes (%) (Auto) 11 % (24-48) Monocytes (%) (Auto) 6 % (0-9) Eosinophils (%) (Auto) 2 % (0-3) Basophils (%) (Auto) 1 % (0-3) Neutrophils # (Auto) 6.4 x10^3uL (1.8-7.7) Lymphocytes # (Auto) 0.9 x10^3/uL (1.0-4.8) Monocytes # (Auto) 0.5 x10^3/uL (0.0-1.1) Eosinophils # (Auto) 0.2 x10^3/uL (0.0-0.7) Basophils # (Auto) 0.1 x10^3/uL (0.0-0.2) Potassium Level 2.7 mmol/L (3.5-5.1) Chloride Level 96 mmol/L (98-107) Carbon Dioxide Level 26 mmol/L (21-32) Anion Gap 8 (6-14) Blood Urea Nitrogen 5 mg/dL (7-20) Creatinine 0.6 mg/dL (0.6-1.0) Estimated GFR (Cockcroft-Gault) 97.5 Glucose Level 103 mg/dL (70-99) Calcium Level 8.0 mg/dL (8.5-10.1) Test 05/20/17 06:25 White Blood Count 8.6 x10^3/uL (4.0-11.0) Red Blood Count 3.75 x10^6/uL (3.50-5.40) Hemoglobin 12.0 g/dL (12.0-15.5) Hematocrit 33.3 % (36.0-47.0) Mean Corpuscular Volume 89 fL (79-100) Mean Corpuscular Hemoglobin 32 pg (25-35) Mean Corpuscular Hemoglobin Concent 36 g/dL (31-37) Red Cell Distribution Width 12.8 % (11.5-14.5) Platelet Count 138 x10^3/uL (140-400) Neutrophils (%) (Auto) 78 % (31-73) Lymphocytes (%) (Auto) 11 % (24-48) Monocytes (%) (Auto) 7 % (0-9) Eosinophils (%) (Auto) 3 % (0-3) Basophils (%) (Auto) 1 % (0-3) Neutrophils # (Auto) 6.7 x10^3uL (1.8-7.7) Lymphocytes # (Auto) 0.9 x10^3/uL (1.0-4.8) Monocytes # (Auto) 0.6 x10^3/uL (0.0-1.1) Eosinophils # (Auto) 0.3 x10^3/uL (0.0-0.7) Basophils # (Auto) 0.1 x10^3/uL (0.0-0.2) Sodium Level 127 mmol/L (136-145) Potassium Level 3.2 mmol/L (3.5-5.1) Chloride Level 92 mmol/L (98-107) Carbon Dioxide Level 28 mmol/L (21-32) Anion Gap 7 (6-14) Blood Urea Nitrogen 4 mg/dL (7-20) Creatinine 0.6 mg/dL (0.6-1.0) Estimated GFR (Cockcroft-Gault) 97.5 Glucose Level 102 mg/dL (70-99) Calcium Level 7.7 mg/dL (8.5-10.1) Magnesium Level 1.5 mg/dL (1.8-2.4) Laboratory Tests Test 05/20/17 06:25 White Blood Count 8.6 x10^3/uL (4.0-11.0) Red Blood Count 3.75 x10^6/uL (3.50-5.40) Hemoglobin 12.0 g/dL (12.0-15.5) Hematocrit 33.3 % (36.0-47.0) Mean Corpuscular Volume 89 fL (79-100) Mean Corpuscular Hemoglobin 32 pg (25-35) Mean Corpuscular Hemoglobin Concent 36 g/dL (31-37) Red Cell Distribution Width 12.8 % (11.5-14.5) Platelet Count 138 x10^3/uL (140-400) Neutrophils (%) (Auto) 78 % (31-73) Lymphocytes (%) (Auto) 11 % (24-48) Monocytes (%) (Auto) 7 % (0-9) Eosinophils (%) (Auto) 3 % (0-3) Basophils (%) (Auto) 1 % (0-3) Neutrophils # (Auto) 6.7 x10^3uL (1.8-7.7) Lymphocytes # (Auto) 0.9 x10^3/uL (1.0-4.8) Monocytes # (Auto) 0.6 x10^3/uL (0.0-1.1) Eosinophils # (Auto) 0.3 x10^3/uL (0.0-0.7) Basophils # (Auto) 0.1 x10^3/uL (0.0-0.2) Sodium Level 127 mmol/L (136-145) Potassium Level 3.2 mmol/L (3.5-5.1) Chloride Level 92 mmol/L (98-107) Carbon Dioxide Level 28 mmol/L (21-32) Anion Gap 7 (6-14) Blood Urea Nitrogen 4 mg/dL (7-20) Creatinine 0.6 mg/dL (0.6-1.0) Estimated GFR (Cockcroft-Gault) 97.5 Glucose Level 102 mg/dL (70-99) Calcium Level 7.7 mg/dL (8.5-10.1) Magnesium Level 1.5 mg/dL (1.8-2.4) Medications Current Medications Thiamine HCl 100 mg/Sodium Chloride 51 ml @ 102 mls/hr 1X ONCE IV Last administered on 05/16/17 01:36; Start 05/16/17 at 00:15; Stop 05/16/17 at 00:44 ; Status DC Lorazepam (Ativan) 0.5 mg PRN Q4HRS PRN IV ANXIETY / AGITATION Last administered on 05/20/17 02:01; Start 05/16/17 at 00:00 Lorazepam (Ativan) 1 mg PRN Q4HRS PRN IV ANXIETY / AGITATION Last administered on 05/16/17 22:24; Start 05/16/17 at 00:00; Stop 05/17/17 at 09:07; Status DC Sodium Chloride 1,000 ml @ 75 mls/hr [id number] IV Last administered on 05/18/17 20:57; Start 05/16/17 at 00:00; Stop 05/19/17 at 11:22; Status DC Sodium Chloride 500 ml @ 50 mls/hr 1X ONCE IV ; Start 05/16/17 at 01:30; Stop 05/17/17 at 02:37; Status DC Sodium Chloride 300 ml @ 50 mls/hr 1X ONCE IV Last administered on 05/16/17 01:28; Start 05/16/17 at 01:15; Stop 05/16/17 at 07:14; Status DC Potassium Chloride 100 ml @ 100 mls/hr Q1H IV Last administered on 05/16/17 06:33; Start 05/16/17 at 01:30; Stop 05/16/17 at 05:29; Status DC Ondansetron HCl (Zofran) 4 mg PRN Q6HRS PRN IV NAUSEA/VOMITING; Start 05/16/17 at 11:15 Enoxaparin Sodium (Lovenox 40mg Syringe) 40 mg Q24H SQ Last administered on 05/20 11:30; Start 05/16/17 at 11:30 Sodium Chloride (Normal Saline Flush) 3 ml QSHIFT PRN IV AFTER MEDS AND BLOOD DRAWS; Start 05/16/17 at 11:15 Potassium Chloride 100 ml @ 100 mls/hr Q1H IV Last administered on 05/16/17 23:02; Start 05/16/17 at 21:00; Stop 05/16/17 at 22:59; Status DC Sodium Chloride 200 ml @ 30 mls/hr 1X ONCE IV Last administered on 05/16/17 20:57; Start 05/16/17 at 21:00; Stop 05/17/17 at 03:39; Status DC Famotidine (Pepcid) 20 mg QHS IVP Last administered on 05/18/17 20:48; Start at 21:00; Stop 05/19/17 at 09:31; Status DC Metoprolol Tartrate (Lopressor) 50 mg BID PO Last administered on 05/20/17 08: 47; Start 05/18/17 at 21:00 Gabapentin (Neurontin) 300 mg PRN DAILY PRN PO Neuropathy pain; Start 05/18/17 at 21:00 Losartan Potassium (Cozaar) 100 mg DAILY PO Last administered on 05/20/17 08:47 ; Start 05/19/17 at 09:00 Atorvastatin Calcium (Lipitor) 80 mg QHS PO Last administered on 05/19/17 20:40 ; Start 05/18/17 at 21:00 Potassium Chloride (Klor-Con) 40 meq 1X ONCE PO Last administered on 05/18/17 20:48; Start 05/18/17 at 20:15; Stop 05/18/17 at 20:16; Status DC Famotidine (Pepcid) 20 mg QHS PO Last administered on 05/19/17 20:40; Start 05/19/17 at 21:00 Acetaminophen (Tylenol) 650 mg PRN Q6HRS PRN PO FEVER; Start 05/19/17 at 09:30 Ondansetron HCl (Zofran) 4 mg PRN Q6HRS PRN IV NAUSEA/VOMITING; Start 05/19/17 at 09:30; Stop 05/19/17 at 11:22; Status DC Morphine Sulfate 2 mg PRN Q2HR PRN IV PAIN; Start 05/19/17 at 09:30 Tramadol HCl (Ultram) 50 mg PRN Q6HRS PRN PO PAIN; Start 05/19/17 at 09:30 Hydralazine HCl (Apresoline) 10 mg PRN Q4HRS PRN IVP ELEVATED BP, SEE COMMENTS ; Start 05/19/17 at 09:30 Docusate Sodium (Colace) 100 mg PRN DAILY PRN PO CONSTIPATION; Start 05/19/17 at 09:30 Potassium Chloride 50 ml @ 50 mls/hr Q1H IV Last administered on 05/19/17 11:17 ; Start 05/19/17 at 10:30; Stop 05/19/17 at 12:29; Status DC Potassium Chloride 50 ml @ 50 mls/hr 1X ONCE IV ; Start 05/19/17 at 10:30; Stop 05/19/17 at 11:29; Status UNV Potassium Chloride/Sodium Chloride 1,000 ml @ 100 mls/hr Q10H IV Last administered on 05/20/17 01:31; Start 05/19/17 at 12:00 Magnesium Sulfate/ Dextrose 50 ml @ 25 mls/hr 1X ONCE IV Last administered on 05/19/17 13:08; Start 05/19/17 at 13:00; Stop 05/19/17 at 14:59; Status DC Amlodipine Besylate (Norvasc) 5 mg DAILY PO Last administered on 05/20/17 09:48 ; Start 05/20/17 at 10:00 Magnesium Sulfate/ Dextrose 50 ml @ 25 mls/hr 1X ONCE IV Last administered on 05/20/17 12:08; Start 05/20/17 at 10:00; Stop 05/20/17 at 11:59; Status DC Magnesium Oxide (Magnesium Oxide) 400 mg BID PO Last administered on 05/20/17 09:48; Start 05/20/17 at 10:00 Potassium Chloride 50 ml @ 50 mls/hr Q1H IV Last administered on 05/20/17 10:55 ; Start 05/20/17 at 10:00; Stop 05/20/17 at 11:59; Status DC Active Scripts Active Reported Gabapentin 300 Mg Capsule 300 Mg PO DAILY PRN Irbesartan 300 Mg Tablet 1 Tab PO DAILY Crestor (Rosuvastatin Calcium) 20 Mg Tablet 1 Tab PO DAILY Hydrochlorothiazide Tablet (Hydrochlorothiazide) 25 Mg Tablet 1 Tab PO DAILY Metoprolol Tartrate 50 Mg Tablet 1 Tab PO BID Vitals/I & O Vital Sign - Last 24 Hours 05/19/17 05/19/17 05/19/17 05/19/17 15:01 19:00 20:00 20:41 Temp 97.7 97.0 97.7 97.0 Pulse 78 96 93 Resp 18 18 B/P (MAP) 149/88 (108) 167/88 (114) 168/92 Pulse Ox 96 90 O2 Delivery Room Air Room Air Room Air 05/19/17 05/20/17 05/20/17 05/20/17 23:00 07:00 08:00 08:47 Temp 97.6 96.3 97.6 96.3 Pulse 86 104 98 Resp 17 20 B/P (MAP) 177/102 (127) 177/102 Pulse Ox 98 97 O2 Delivery Room Air Room Air Room Air 05/20/17 05/20/17 05/20/17 05/20/17 08:47 09:05 09:48 10:58 Temp 96.8 96.8 Pulse 98 98 81 Resp 19 B/P (MAP) 177/102 179/102 (127) 179/102 117/73 (88) Pulse Ox 97 O2 Delivery Room Air Intake and Output 05/19/17 05/19/17 05/20/17 15:00 23:00 07:00 Intake Total 1620 ml 520 ml Output Total 1800 ml 775 ml Balance -180 ml 520 ml -775 ml PEGGY ZULETA MD May 20, 2017 12:46
[2017-05-20 15:00] VITALS: BP 128/82
[2017-05-20 19:45] VITALS: BP 136/98
[2017-05-20] MEDS: ATORVASTATIN CALCIUM 40 MG TABLET. PO SCH (20:25)
[2017-05-20] MEDS: FAMOTIDINE 20 MG TABLET. PO SCH (20:25)
[2017-05-20 23:10] VITALS: BP 135/81
--- NOTE | 2017-05-20 23:44 | PDOC ---
Provider Note Provider Note RENAL F/U : EDY Date of service : 05/19/17. S : Doing fair No active CP, SOA or new c/o O : VSS BP better/stable Alert. Neck : Supple Lings : Decreased bases. Non labored. CVS : RRR Abd : Portly. No masses. Stable edema/trace. Neuro ; more alert. Labs reviewed. A/P : HYPONATREMIA HTN w CKD HYPOKALEMIA MENTAL STATUS CHANGES. Better. Supportive care. Na improved. Replace K Labs. CHRIS SNOW MD May 20, 2017 23:44
--- NOTE | 2017-05-20 23:45 | PDOC ---
Provider Note Provider Note RENAL F/U : EDY S : More alert. No active CP, SOA or new c/o O : VSS BP better/stable Alert. Neck : Supple Lings : Decreased bases. Non labored. CVS : RRR Abd : Portly. No masses. Stable edema/trace. Neuro ; more alert. Labs reviewed. A/P : HYPONATREMIA HTN w CKD HYPOKALEMIA MENTAL STATUS CHANGES. K and Mg low Being replaced. Watch I/Os Labs Supportive care. CHRIS SNOW MD May 20, 2017 23:45
[2017-05-21 03:59] VITALS: BP 152/70
[2017-05-21 07:00] VITALS: BP 160/88
[2017-05-21] MEDS: LOSARTAN POTASSIUM 50 MG TABLET. PO SCH (09:46)
[2017-05-21] MEDS: amLODIPine BESYLATE 5 MG TABLET PO SCH (09:46)
[2017-05-21] MEDS: METOPROLOL TART IMMED RELEASE 50 MG TABLET. PO SCH ×2 (09:47→21:12)
[2017-05-21] MEDS: MAGNESIUM OXIDE 400 MG TABLET PO SCH ×2 (09:47→21:12)
--- NOTE | 2017-05-21 10:07 | PDOC ---
PROGRESS NOTES Chief Complaint Chief Complaint Hyponatremia ASSESSMENT AND PLAN: 1. Hyponatremia: 2/2 low Salt intake likely, labs pending from today. 2. AMS: improved. 3. Agitation: resolved. 4. Hypokalemia: replete as per protocol, labs pending. 5. Elevated CK, most likely 2/2 above hypomagnesemia 6. Physical debility: needs PT/OT. History of Present Illness History of Present Illness no fever no chills doing better no chest pain Vitals Vitals Vital Signs Date Time Temp Pulse Resp B/P (MAP) Pulse Ox O2 Delivery O2 Flow Rate FiO2 05/21/17 09:47 102 160/88 05/21/17 07:00 97.4 20 98 Room Air 97.4 Physical Exam General: Alert, Cooperative, No acute distress Heart: Regular rate, No murmurs Lungs: Clear Abdomen: Normal bowel sounds Extremities: No clubbing, No edema Skin: No rashes Comment Review of Relevant I have reviewed the following items yanet (where applicable) has been applied. Labs Laboratory Tests Test 05/20/17 06:25 White Blood Count 8.6 x10^3/uL (4.0-11.0) Red Blood Count 3.75 x10^6/uL (3.50-5.40) Hemoglobin 12.0 g/dL (12.0-15.5) Hematocrit 33.3 % (36.0-47.0) Mean Corpuscular Volume 89 fL (79-100) Mean Corpuscular Hemoglobin 32 pg (25-35) Mean Corpuscular Hemoglobin Concent 36 g/dL (31-37) Red Cell Distribution Width 12.8 % (11.5-14.5) Platelet Count 138 x10^3/uL (140-400) Neutrophils (%) (Auto) 78 % (31-73) Lymphocytes (%) (Auto) 11 % (24-48) Monocytes (%) (Auto) 7 % (0-9) Eosinophils (%) (Auto) 3 % (0-3) Basophils (%) (Auto) 1 % (0-3) Neutrophils # (Auto) 6.7 x10^3uL (1.8-7.7) Lymphocytes # (Auto) 0.9 x10^3/uL (1.0-4.8) Monocytes # (Auto) 0.6 x10^3/uL (0.0-1.1) Eosinophils # (Auto) 0.3 x10^3/uL (0.0-0.7) Basophils # (Auto) 0.1 x10^3/uL (0.0-0.2) Sodium Level 127 mmol/L (136-145) Potassium Level 3.2 mmol/L (3.5-5.1) Chloride Level 92 mmol/L (98-107) Carbon Dioxide Level 28 mmol/L (21-32) Anion Gap 7 (6-14) Blood Urea Nitrogen 4 mg/dL (7-20) Creatinine 0.6 mg/dL (0.6-1.0) Estimated GFR (Cockcroft-Gault) 97.5 Glucose Level 102 mg/dL (70-99) Calcium Level 7.7 mg/dL (8.5-10.1) Magnesium Level 1.5 mg/dL (1.8-2.4) Medications Current Medications Thiamine HCl 100 mg/Sodium Chloride 51 ml @ 102 mls/hr 1X ONCE IV Last administered on 05/16/17 01:36; Start 05/16/17 at 00:15; Stop 05/16/17 at 00:44 ; Status DC Lorazepam (Ativan) 0.5 mg PRN Q4HRS PRN IV ANXIETY / AGITATION Last administered on 05/20/17 02:01; Start 05/16/17 at 00:00 Lorazepam (Ativan) 1 mg PRN Q4HRS PRN IV ANXIETY / AGITATION Last administered on 05/16/17 22:24; Start 05/16/17 at 00:00; Stop 05/17/17 at 09:07; Status DC Sodium Chloride 1,000 ml @ 75 mls/hr [id number] IV Last administered on 05/18/17 20:57; Start 05/16/17 at 00:00; Stop 05/19/17 at 11:22; Status DC Sodium Chloride 500 ml @ 50 mls/hr 1X ONCE IV ; Start 05/16/17 at 01:30; Stop 05/17/17 at 02:37; Status DC Sodium Chloride 300 ml @ 50 mls/hr 1X ONCE IV Last administered on 05/16/17 01:28; Start 05/16/17 at 01:15; Stop 05/16/17 at 07:14; Status DC Potassium Chloride 100 ml @ 100 mls/hr Q1H IV Last administered on 05/16/17 06:33; Start 05/16/17 at 01:30; Stop 05/16/17 at 05:29; Status DC Ondansetron HCl (Zofran) 4 mg PRN Q6HRS PRN IV NAUSEA/VOMITING; Start 05/16/17 at 11:15 Enoxaparin Sodium (Lovenox 40mg Syringe) 40 mg Q24H SQ Last administered on 05/20 11:30; Start 05/16/17 at 11:30 Sodium Chloride (Normal Saline Flush) 3 ml QSHIFT PRN IV AFTER MEDS AND BLOOD DRAWS; Start 05/16/17 at 11:15 Potassium Chloride 100 ml @ 100 mls/hr Q1H IV Last administered on 05/16/17 23:02; Start 05/16/17 at 21:00; Stop 05/16/17 at 22:59; Status DC Sodium Chloride 200 ml @ 30 mls/hr 1X ONCE IV Last administered on 05/16/17 20:57; Start 05/16/17 at 21:00; Stop 05/17/17 at 03:39; Status DC Famotidine (Pepcid) 20 mg QHS IVP Last administered on 05/18/17 20:48; Start at 21:00; Stop 05/19/17 at 09:31; Status DC Metoprolol Tartrate (Lopressor) 50 mg BID PO Last administered on 05/21/17 09: 47; Start 05/18/17 at 21:00 Gabapentin (Neurontin) 300 mg PRN DAILY PRN PO Neuropathy pain; Start 05/18/17 at 21:00 Losartan Potassium (Cozaar) 100 mg DAILY PO Last administered on 05/21/17 09:46 ; Start 05/19/17 at 09:00 Atorvastatin Calcium (Lipitor) 80 mg QHS PO Last administered on 05/20/17 20:25 ; Start 05/18/17 at 21:00 Potassium Chloride (Klor-Con) 40 meq 1X ONCE PO Last administered on 05/18/17 20:48; Start 05/18/17 at 20:15; Stop 05/18/17 at 20:16; Status DC Famotidine (Pepcid) 20 mg QHS PO Last administered on 05/20/17 20:25; Start 05/19/17 at 21:00 Acetaminophen (Tylenol) 650 mg PRN Q6HRS PRN PO FEVER; Start 05/19/17 at 09:30 Ondansetron HCl (Zofran) 4 mg PRN Q6HRS PRN IV NAUSEA/VOMITING; Start 05/19/17 at 09:30; Stop 05/19/17 at 11:22; Status DC Morphine Sulfate 2 mg PRN Q2HR PRN IV PAIN; Start 05/19/17 at 09:30 Tramadol HCl (Ultram) 50 mg PRN Q6HRS PRN PO PAIN; Start 05/19/17 at 09:30 Hydralazine HCl (Apresoline) 10 mg PRN Q4HRS PRN IVP ELEVATED BP, SEE COMMENTS ; Start 05/19/17 at 09:30 Docusate Sodium (Colace) 100 mg PRN DAILY PRN PO CONSTIPATION; Start 05/19/17 at 09:30 Potassium Chloride 50 ml @ 50 mls/hr Q1H IV Last administered on 05/19/17 11:17 ; Start 05/19/17 at 10:30; Stop 05/19/17 at 12:29; Status DC Potassium Chloride 50 ml @ 50 mls/hr 1X ONCE IV ; Start 05/19/17 at 10:30; Stop 05/19/17 at 11:29; Status UNV Potassium Chloride/Sodium Chloride 1,000 ml @ 100 mls/hr Q10H IV Last administered on 05/20/17 23:46; Start 05/19/17 at 12:00 Magnesium Sulfate/ Dextrose 50 ml @ 25 mls/hr 1X ONCE IV Last administered on 05/19/17 13:08; Start 05/19/17 at 13:00; Stop 05/19/17 at 14:59; Status DC Amlodipine Besylate (Norvasc) 5 mg DAILY PO Last administered on 05/21/17 09:46 ; Start 05/20/17 at 10:00 Magnesium Sulfate/ Dextrose 50 ml @ 25 mls/hr 1X ONCE IV Last administered on 05/20/17 12:08; Start 05/20/17 at 10:00; Stop 05/20/17 at 11:59; Status DC Magnesium Oxide (Magnesium Oxide) 400 mg BID PO Last administered on 05/21/17 09:47; Start 05/20/17 at 10:00 Potassium Chloride 50 ml @ 50 mls/hr Q1H IV Last administered on 05/20/17 10:55 ; Start 05/20/17 at 10:00; Stop 05/20/17 at 11:59; Status DC Active Scripts Active Reported Gabapentin 300 Mg Capsule 300 Mg PO DAILY PRN Irbesartan 300 Mg Tablet 1 Tab PO DAILY Crestor (Rosuvastatin Calcium) 20 Mg Tablet 1 Tab PO DAILY Hydrochlorothiazide Tablet (Hydrochlorothiazide) 25 Mg Tablet 1 Tab PO DAILY Metoprolol Tartrate 50 Mg Tablet 1 Tab PO BID Vitals/I & O Vital Sign - Last 24 Hours 05/20/17 05/20/17 05/20/17 05/20/17 10:58 15:00 19:15 19:45 Temp 96.8 96.9 98.0 96.8 96.9 98.0 Pulse 81 84 102 Resp 19 18 B/P (MAP) 117/73 (88) 128/82 (97) 136/98 (111) Pulse Ox 97 98 96 O2 Delivery Room Air Room Air Room Air Room Air 05/20/17 05/20/17 05/21/17 05/21/17 20:26 23:10 03:59 07:00 Temp 96.9 97.0 97.4 96.9 97.0 97.4 Pulse 102 72 67 102 Resp 20 B/P (MAP) 136/98 135/81 (99) 152/70 (97) 160/88 (112) Pulse Ox 97 93 98 O2 Delivery Room Air Room Air Room Air 05/21/17 05/21/17 05/21/17 09:46 09:46 09:47 Pulse 102 102 102 B/P (MAP) 160/88 160/88 160/88 Intake and Output 05/20/17 05/20/17 05/21/17 15:00 23:00 07:00 Intake Total 1450 ml 610 ml 1180 ml Output Total 350 ml Balance 1100 ml 610 ml 1180 ml ERIK BRAUN MD May 21, 2017 10:07
[2017-05-21 10:28] LABS: CREATININE 0.7 mg/dL (0.6-1.0); GFR 81.6; MAGNESIUM 1.6 mg/dL (1.8-2.4); PHOSPHORUS 1.8 mg/dL (2.6-4.7); POTASSIUM 3.5 mmol/L (3.5-5.1)
[2017-05-21 10:47] LABS: BASO % 0 % (0-3); EOS % 2 % (0-3); HEMATOCRIT 31.5 % (36.0-47.0); HEMOGLOBIN 11.5 g/dL (12.0-15.5); LYMPH # 0.7 x10^3/uL (1.0-4.8); LYMPH % 9 % (24-48); MEAN CORPUSCULAR HEMOGLOBIN 32 pg (25-35); MEAN CORPUSCULAR HGB CONC 36 g/dL (31-37); MEAN CORPUSCULAR VOLUME 89 fL (79-100); MONO % 8 % (0-9); NEUT % 81 % (31-73); PLATELET COUNT 128 x10^3/uL (140-400); RED BLOOD COUNT 3.56 x10^6/uL (3.50-5.40); WHITE BLOOD COUNT 8.1 x10^3/uL (4.0-11.0)
[2017-05-21 11:00] VITALS: BP 140/80
--- NOTE | 2017-05-21 11:58 | PDOC ---
SUBJECTIVE ROS HypoNatremia Doigna nd feeling a little better overall CVS: no Orthopnea, no CP RESP: no SOB, no AMBROSE + COUGH GI: no Nausea, no Vomiting : no Dysuria, no Urgency OBJECTIVE Vital Signs Vital Signs Date Time Temp Pulse Resp B/P (MAP) Pulse Ox O2 Delivery O2 Flow Rate FiO2 05/21/17 09:47 102 160/88 05/21/17 07:50 Room Air 05/21/17 07:00 97.4 20 98 97.4 I & 0 Intake and Output 05/21/17 06:59 Intake Total 3240 ml Output Total 350 ml Balance 2890 ml Intake Oral 1090 ml IV Total 2150 ml Output Urine Total 350 ml # Voids 6 # Bowel Movements 3 PHYSICAL EXAM Physical Exam GEN: Awake, Oriented x 3, In no distress EYES: Vision Unchanged, Conjunctiva Normal EN: No EN Drainage, Mucous Membranes moist NECK: no JVD, no JVP, Supple, no Thyromegaly CVS: S1S2, no Murmur, No Gallop, No Rub,no Edema RESP: ? Basal Rales, occ Rhonchi,no Acc. Muscle Use GI: BS + ve, NO Bruit, Non Tender, Non Distended : no CVA tenderness, no Suprapubic Tenderness DIAGNOSIS/ASSESSMENT Assessment & Plan HYPONATREMIA - better now; off of HCTZ and on IVF. Watch trend. HTN = ? Renovascular - check Duplex HYPOKALEMIA - presumed due to low mag and HCTZ - reval after correction of Mag. If does not correct then eval for Renin/Jaylen ? element of Dehydration/ Vol depeltion - IVF as ordered. Problems: COMMENT/RELEVANT DATA Meds Current Medications Medications (Trade) Dose Ordered Sig/Cary Start Time Stop Time Status Last Admin Dose Admin Acetaminophen (Tylenol) 650 mg PRN Q6HRS PRN 05/19/17 09:30 Amlodipine Besylate (Norvasc) 5 mg DAILY 05/20/17 10:00 05/21/17 09:46 5 MG Atorvastatin Calcium (Lipitor) 80 mg QHS 05/18/17 21:00 05/20/17 20:25 80 MG Docusate Sodium (Colace) 100 mg PRN DAILY PRN 05/19/17 09:30 Enoxaparin Sodium (Lovenox 40mg Syringe) 40 mg Q24H 05/16/17 11:30 7/4/17 11:30 40 MG Famotidine (Pepcid) 20 mg QHS 05/19/17 21:00 05/20/17 20:25 20 MG Gabapentin (Neurontin) 300 mg PRN DAILY PRN 05/18/17 21:00 Hydralazine HCl (Apresoline) 10 mg PRN Q4HRS PRN 05/19/17 09:30 Lorazepam (Ativan) 1 mg PRN Q4HRS PRN 05/16/17 00:00 05/17/17 09:07 DC 05/16/17 22:24 1 MG Losartan Potassium (Cozaar) 100 mg DAILY 05/19/17 09:00 05/21/17 09:46 100 MG Magnesium Oxide (Magnesium Oxide) 400 mg BID 05/20/17 10:00 05/21/17 09:47 400 MG Magnesium Sulfate/ Dextrose 50 ml @ 25 mls/hr 1X ONCE 05/20/17 10:00 05/20/17 11:59 DC 05/20/17 12:08 25 MLS/HR Metoprolol Tartrate (Lopressor) 50 mg BID 05/18/17 21:00 05/21/17 09:47 50 MG Morphine Sulfate 2 mg PRN Q2HR PRN 05/19/17 09:30 Ondansetron HCl (Zofran) 4 mg PRN Q6HRS PRN 05/19/17 09:30 05/19/17 11:22 DC Potassium Chloride/Sodium Chloride 1,000 ml @ 100 mls/hr Q10H 05/19/17 12:00 05/20/17 23:46 100 MLS/HR Potassium Chloride 50 ml @ 50 mls/hr Q1H 05/20/17 10:00 05/20/17 11:59 DC 05/20/17 10:55 50 MLS/HR Potassium Chloride (Klor-Con) 40 meq 1X ONCE 05/18/17 20:15 05/18/17 20:16 DC 05/18/17 20:48 40 MEQ Sodium Chloride 200 ml @ 30 mls/hr 1X ONCE 05/16/17 21:00 05/17/17 03:39 DC 05/16/17 20:57 30 MLS/HR Sodium Chloride (Normal Saline Flush) 3 ml QSHIFT PRN 05/16/17 11:15 Thiamine HCl 100 mg/Sodium Chloride 51 ml @ 102 mls/hr 1X ONCE 05/16/17 00:15 05/16/17 00:44 DC 05/16/17 01:36 102 MLS/HR Tramadol HCl (Ultram) 50 mg PRN Q6HRS PRN 05/19/17 09:30 Lab Laboratory Tests Test 05/21/17 09:55 White Blood Count 8.1 x10^3/uL (4.0-11.0) Red Blood Count 3.56 x10^6/uL (3.50-5.40) Hemoglobin 11.5 g/dL (12.0-15.5) Hematocrit 31.5 % (36.0-47.0) Mean Corpuscular Volume 89 fL (79-100) Mean Corpuscular Hemoglobin 32 pg (25-35) Mean Corpuscular Hemoglobin Concent 36 g/dL (31-37) Red Cell Distribution Width 13.0 % (11.5-14.5) Platelet Count 128 x10^3/uL (140-400) Neutrophils (%) (Auto) 81 % (31-73) Lymphocytes (%) (Auto) 9 % (24-48) Monocytes (%) (Auto) 8 % (0-9) Eosinophils (%) (Auto) 2 % (0-3) Basophils (%) (Auto) 0 % (0-3) Neutrophils # (Auto) 6.5 x10^3uL (1.8-7.7) Lymphocytes # (Auto) 0.7 x10^3/uL (1.0-4.8) Monocytes # (Auto) 0.6 x10^3/uL (0.0-1.1) Eosinophils # (Auto) 0.2 x10^3/uL (0.0-0.7) Basophils # (Auto) 0.0 x10^3/uL (0.0-0.2) Sodium Level 129 mmol/L (136-145) Potassium Level 3.5 mmol/L (3.5-5.1) Chloride Level 96 mmol/L (98-107) Carbon Dioxide Level 26 mmol/L (21-32) Anion Gap 7 (6-14) Blood Urea Nitrogen 7 mg/dL (7-20) Creatinine 0.7 mg/dL (0.6-1.0) Estimated GFR (Cockcroft-Gault) 81.6 Glucose Level 128 mg/dL (70-99) Calcium Level 8.0 mg/dL (8.5-10.1) Phosphorus Level 1.8 mg/dL (2.6-4.7) Magnesium Level 1.6 mg/dL (1.8-2.4) ISRAEL COKER MD May 21, 2017 11:58
[2017-05-21] MEDS ORDERED: POTASSIUM CHLORIDE 20 MEQ TABLET.ER. PO ONE (12:00)
[2017-05-21] MEDS ORDERED: MAGNESIUM SULFATE 2GM 50 ML IV PRN (12:00)
[2017-05-21] MEDS: ENOXAPARIN 40 MG/0.4 ML SYRINGE. SQ SCH (12:24)
[2017-05-21] MEDS ORDERED: SODIUM PHOSPHATE 40 MMOL in IV DEXTROSE 5% 250 ML IV ONE (13:00)
--- NOTE | 2017-05-21 14:37 | RAD ---
Indication chronic productive cough. Hyponatremia. PA and lateral views of the chest were obtained. Comparison is made to an examination 5 days ago. Heart size is unchanged. Tortuous ectatic aorta is noted. There is no acute parenchymal infiltrate. Significant pleural fluid is not seen. There has not been a significant change compared to the previous exam. Aortic stent graft and right PICC line are noted. IMPRESSION: No acute finding apparent in the chest
[2017-05-21 15:00] VITALS: BP 136/72
[2017-05-21] MEDS ORDERED: MAGNESIUM SULFATE 2GM 50 ML IV ONE (15:00)
[2017-05-21 19:00] VITALS: BP 148/63
[2017-05-21 20:15] LABS: BILIRUBIN,URINE NEGATIVE (NEG); GLUCOSE,URINE NEGATIVE (NEG); NITRITE,URINE NEGATIVE (NEG); PROTEIN,URINE NEGATIVE (NEG-TRACE)
[2017-05-21 20:24] LABS: BACTERIA,URINE MODERATE /HPF (0-FEW); RBC,URINE 0 /HPF (0-2); SQUAMOUS EPITHELIAL CELL,UR MOD /LPF
[2017-05-21] MEDS ORDERED: NICOTINE POLACRILEX 2MG GUM PACKAGE of 12. BC PRN (20:30)
[2017-05-21] MEDS: FAMOTIDINE 20 MG TABLET. PO SCH (21:12)
[2017-05-21] MEDS: ATORVASTATIN CALCIUM 40 MG TABLET. PO SCH (21:12)
[2017-05-21 23:00] VITALS: BP 148/92
[2017-05-22 03:00] VITALS: BP 131/80
[2017-05-22 06:31] LABS: POTASSIUM 4.1 mmol/L (3.5-5.1)
[2017-05-22 07:00] VITALS: BP 144/87
--- NOTE | 2017-05-22 08:40 | RAD ---
Indication hypertension. Grayscale images targeted to the kidneys were obtained. Subsequently the renal vasculature was evaluated. Color Doppler spectral imaging was performed. The right kidney measures approximately 8.9 cm in length. There is some cortical thinning. No solid mass or hydronephrosis is seen. The left kidney measures 10.2 cm in length. Similarly there is some cortical thinning. No hydronephrosis or mass is seen. The visualized abdominal aorta appears normal. The velocities in the main right renal artery are unremarkable and the ratio values relative to the aorta appear normal. The measured velocities in the left renal artery are also normal and the ratio values relative to the aorta are normal. Resistive indices are within normal limits. The renal veins, bilaterally, are patent. IMPRESSION: Mild cortical thinning involving both kidneys. No definite evidence of significant renal artery stenosis
[2017-05-22] MEDS: MAGNESIUM OXIDE 400 MG TABLET PO SCH ×2 (08:54→21:12)
[2017-05-22] MEDS: amLODIPine BESYLATE 5 MG TABLET PO SCH (08:55)
[2017-05-22] MEDS: METOPROLOL TART IMMED RELEASE 50 MG TABLET. PO SCH ×2 (08:55→21:12)
[2017-05-22] MEDS: LOSARTAN POTASSIUM 50 MG TABLET. PO SCH (08:56)
--- NOTE | 2017-05-22 10:13 | PDOC ---
PROGRESS NOTES Chief Complaint Chief Complaint Hyponatremia ASSESSMENT AND PLAN: 1. Hyponatremia: improving. 2. AMS: improved. 3. Agitation: resolved. 4. Hypokalemia: replete as per protocol 5. Elevated CK, most likely 2/2 above hypomagnesemia 6. Physical debility: needs PT/OT, needs SNU. History of Present Illness History of Present Illness no fever no chills doing better no chest pain Vitals Vitals Vital Signs Date Time Temp Pulse Resp B/P (MAP) Pulse Ox O2 Delivery O2 Flow Rate FiO2 05/22/17 08:56 73 144/87 05/22/17 08:00 Room Air 05/22/17 07:00 98.1 18 90 98.1 05/21/17 11:00 2.0 Physical Exam General: Alert, Cooperative, No acute distress Heart: Regular rate, No murmurs Lungs: Clear Abdomen: Normal bowel sounds Extremities: No clubbing, No edema Skin: No rashes Labs LABS Laboratory Tests Test 05/21/17 16:58 05/22/17 06:05 Urine Collection Type Unknown Urine Color Yellow Urine Clarity Clear Urine pH 6.0 Urine Specific Lynch 1.015 Urine Protein Negative mg/dL (NEG-TRACE) Urine Glucose (UA) Negative mg/dL (NEG) Urine Ketones (Stick) Trace mg/dL (NEG) Urine Blood Negative (NEG) Urine Nitrite Negative (NEG) Urine Bilirubin Negative (NEG) Urine Urobilinogen Dipstick 1.0 mg/dL (0.2 mg/dL) Urine Leukocyte Esterase Negative (NEG) Urine RBC 0 /HPF (0-2) Urine WBC 1-4 /HPF (0-4) Urine Squamous Epithelial Cells Mod /LPF Urine Bacteria Moderate /HPF (0-FEW) Urine Mucus Mod /LPF Urine Random Sodium 129 mmol/L (Not Estab.) Sodium Level 131 mmol/L (136-145) Potassium Level 4.1 mmol/L (3.5-5.1) Chloride Level 98 mmol/L (98-107) Carbon Dioxide Level 26 mmol/L (21-32) Anion Gap 7 (6-14) Magnesium Level 2.0 mg/dL (1.8-2.4) Comment Review of Relevant I have reviewed the following items yanet (where applicable) has been applied. Labs Laboratory Tests Test 05/21/17 09:55 05/21/17 16:58 05/22/17 06:05 White Blood Count 8.1 x10^3/uL (4.0-11.0) Red Blood Count 3.56 x10^6/uL (3.50-5.40) Hemoglobin 11.5 g/dL (12.0-15.5) Hematocrit 31.5 % (36.0-47.0) Mean Corpuscular Volume 89 fL (79-100) Mean Corpuscular Hemoglobin 32 pg (25-35) Mean Corpuscular Hemoglobin Concent 36 g/dL (31-37) Red Cell Distribution Width 13.0 % (11.5-14.5) Platelet Count 128 x10^3/uL (140-400) Neutrophils (%) (Auto) 81 % (31-73) Lymphocytes (%) (Auto) 9 % (24-48) Monocytes (%) (Auto) 8 % (0-9) Eosinophils (%) (Auto) 2 % (0-3) Basophils (%) (Auto) 0 % (0-3) Neutrophils # (Auto) 6.5 x10^3uL (1.8-7.7) Lymphocytes # (Auto) 0.7 x10^3/uL (1.0-4.8) Monocytes # (Auto) 0.6 x10^3/uL (0.0-1.1) Eosinophils # (Auto) 0.2 x10^3/uL (0.0-0.7) Basophils # (Auto) 0.0 x10^3/uL (0.0-0.2) Sodium Level 129 mmol/L (136-145) 131 mmol/L (136-145) Potassium Level 3.5 mmol/L (3.5-5.1) 4.1 mmol/L (3.5-5.1) Chloride Level 96 mmol/L (98-107) 98 mmol/L (98-107) Carbon Dioxide Level 26 mmol/L (21-32) 26 mmol/L (21-32) Anion Gap 7 (6-14) 7 (6-14) Blood Urea Nitrogen 7 mg/dL (7-20) Creatinine 0.7 mg/dL (0.6-1.0) Estimated GFR (Cockcroft-Gault) 81.6 Glucose Level 128 mg/dL (70-99) Uric Acid 2.3 mg/dL (2.6-6.0) Calcium Level 8.0 mg/dL (8.5-10.1) Phosphorus Level 1.8 mg/dL (2.6-4.7) Magnesium Level 1.6 mg/dL (1.8-2.4) 2.0 mg/dL (1.8-2.4) Urine Collection Type Unknown Urine Color Yellow Urine Clarity Clear Urine pH 6.0 Urine Specific Lynch 1.015 Urine Protein Negative mg/dL (NEG-TRACE) Urine Glucose (UA) Negative mg/dL (NEG) Urine Ketones (Stick) Trace mg/dL (NEG) Urine Blood Negative (NEG) Urine Nitrite Negative (NEG) Urine Bilirubin Negative (NEG) Urine Urobilinogen Dipstick 1.0 mg/dL (0.2 mg/dL) Urine Leukocyte Esterase Negative (NEG) Urine RBC 0 /HPF (0-2) Urine WBC 1-4 /HPF (0-4) Urine Squamous Epithelial Cells Mod /LPF Urine Bacteria Moderate /HPF (0-FEW) Urine Mucus Mod /LPF Urine Random Sodium 129 mmol/L (Not Estab.) Laboratory Tests Test 05/21/17 16:58 05/22/17 06:05 Urine Collection Type Unknown Urine Color Yellow Urine Clarity Clear Urine pH 6.0 Urine Specific Lynch 1.015 Urine Protein Negative mg/dL (NEG-TRACE) Urine Glucose (UA) Negative mg/dL (NEG) Urine Ketones (Stick) Trace mg/dL (NEG) Urine Blood Negative (NEG) Urine Nitrite Negative (NEG) Urine Bilirubin Negative (NEG) Urine Urobilinogen Dipstick 1.0 mg/dL (0.2 mg/dL) Urine Leukocyte Esterase Negative (NEG) Urine RBC 0 /HPF (0-2) Urine WBC 1-4 /HPF (0-4) Urine Squamous Epithelial Cells Mod /LPF Urine Bacteria Moderate /HPF (0-FEW) Urine Mucus Mod /LPF Urine Random Sodium 129 mmol/L (Not Estab.) Sodium Level 131 mmol/L (136-145) Potassium Level 4.1 mmol/L (3.5-5.1) Chloride Level 98 mmol/L (98-107) Carbon Dioxide Level 26 mmol/L (21-32) Anion Gap 7 (6-14) Magnesium Level 2.0 mg/dL (1.8-2.4) Medications Current Medications Thiamine HCl 100 mg/Sodium Chloride 51 ml @ 102 mls/hr 1X ONCE IV Last administered on 05/16/17 01:36; Start 05/16/17 at 00:15; Stop 05/16/17 at 00:44 ; Status DC Lorazepam (Ativan) 0.5 mg PRN Q4HRS PRN IV ANXIETY / AGITATION Last administered on 05/20/17 02:01; Start 05/16/17 at 00:00 Lorazepam (Ativan) 1 mg PRN Q4HRS PRN IV ANXIETY / AGITATION Last administered on 05/16/17 22:24; Start 05/16/17 at 00:00; Stop 05/17/17 at 09:07; Status DC Sodium Chloride 1,000 ml @ 75 mls/hr [id number] IV Last administered on 05/18/17 20:57; Start 05/16/17 at 00:00; Stop 05/19/17 at 11:22; Status DC Sodium Chloride 500 ml @ 50 mls/hr 1X ONCE IV ; Start 05/16/17 at 01:30; Stop 05/17/17 at 02:37; Status DC Sodium Chloride 300 ml @ 50 mls/hr 1X ONCE IV Last administered on 05/16/17 01:28; Start 05/16/17 at 01:15; Stop 05/16/17 at 07:14; Status DC Potassium Chloride 100 ml @ 100 mls/hr Q1H IV Last administered on 05/16/17 06:33; Start 05/16/17 at 01:30; Stop 05/16/17 at 05:29; Status DC Ondansetron HCl (Zofran) 4 mg PRN Q6HRS PRN IV NAUSEA/VOMITING; Start 05/16/17 at 11:15 Enoxaparin Sodium (Lovenox 40mg Syringe) 40 mg Q24H SQ Last administered on 05/21 12:24; Start 05/16/17 at 11:30 Sodium Chloride (Normal Saline Flush) 3 ml QSHIFT PRN IV AFTER MEDS AND BLOOD DRAWS; Start 05/16/17 at 11:15 Potassium Chloride 100 ml @ 100 mls/hr Q1H IV Last administered on 05/16/17 23:02; Start 05/16/17 at 21:00; Stop 05/16/17 at 22:59; Status DC Sodium Chloride 200 ml @ 30 mls/hr 1X ONCE IV Last administered on 05/16/17 20:57; Start 05/16/17 at 21:00; Stop 05/17/17 at 03:39; Status DC Famotidine (Pepcid) 20 mg QHS IVP Last administered on 05/18/17 20:48; Start at 21:00; Stop 05/19/17 at 09:31; Status DC Metoprolol Tartrate (Lopressor) 50 mg BID PO Last administered on 05/22/17 08: 55; Start 05/18/17 at 21:00 Gabapentin (Neurontin) 300 mg PRN DAILY PRN PO Neuropathy pain; Start 05/18/17 at 21:00 Losartan Potassium (Cozaar) 100 mg DAILY PO Last administered on 05/22/17 08:56 ; Start 05/19/17 at 09:00 Atorvastatin Calcium (Lipitor) 80 mg QHS PO Last administered on 05/21/17 21:12 ; Start 05/18/17 at 21:00 Potassium Chloride (Klor-Con) 40 meq 1X ONCE PO Last administered on 05/18/17 20:48; Start 05/18/17 at 20:15; Stop 05/18/17 at 20:16; Status DC Famotidine (Pepcid) 20 mg QHS PO Last administered on 05/21/17 21:12; Start 05/19/17 at 21:00 Acetaminophen (Tylenol) 650 mg PRN Q6HRS PRN PO FEVER; Start 05/19/17 at 09:30 Ondansetron HCl (Zofran) 4 mg PRN Q6HRS PRN IV NAUSEA/VOMITING; Start 05/19/17 at 09:30; Stop 05/19/17 at 11:22; Status DC Morphine Sulfate 2 mg PRN Q2HR PRN IV PAIN; Start 05/19/17 at 09:30 Tramadol HCl (Ultram) 50 mg PRN Q6HRS PRN PO PAIN; Start 05/19/17 at 09:30 Hydralazine HCl (Apresoline) 10 mg PRN Q4HRS PRN IVP ELEVATED BP, SEE COMMENTS ; Start 05/19/17 at 09:30 Docusate Sodium (Colace) 100 mg PRN DAILY PRN PO CONSTIPATION; Start 05/19/17 at 09:30 Potassium Chloride 50 ml @ 50 mls/hr Q1H IV Last administered on 05/19/17 11:17 ; Start 05/19/17 at 10:30; Stop 05/19/17 at 12:29; Status DC Potassium Chloride 50 ml @ 50 mls/hr 1X ONCE IV ; Start 05/19/17 at 10:30; Stop 05/19/17 at 11:29; Status UNV Potassium Chloride/Sodium Chloride 1,000 ml @ 100 mls/hr Q10H IV Last administered on 05/21/17 13:05; Start 05/19/17 at 12:00; Stop 05/21/17 at 19:55; Status DC Magnesium Sulfate/ Dextrose 50 ml @ 25 mls/hr 1X ONCE IV Last administered on 05/19/17 13:08; Start 05/19/17 at 13:00; Stop 05/19/17 at 14:59; Status DC Amlodipine Besylate (Norvasc) 5 mg DAILY PO Last administered on 05/22/17 08:55 ; Start 05/20/17 at 10:00 Magnesium Sulfate/ Dextrose 50 ml @ 25 mls/hr 1X ONCE IV Last administered on 05/20/17 12:08; Start 05/20/17 at 10:00; Stop 05/20/17 at 11:59; Status DC Magnesium Oxide (Magnesium Oxide) 400 mg BID PO Last administered on 05/22/17 08:54; Start 05/20/17 at 10:00 Potassium Chloride 50 ml @ 50 mls/hr Q1H IV Last administered on 05/20/17 10:55 ; Start 05/20/17 at 10:00; Stop 05/20/17 at 11:59; Status DC Magnesium Sulfate/ Dextrose 50 ml @ 25 mls/hr PRN DAILY PRN IV for Mag < 1.7 on am labs; Start 05/21/17 at 12:00 Sodium Phosphate 40 mmol/Dextrose 263.3333 ml @ 64.167 m... 1X ONCE IV Last administered on 05/21/17 14:58; Start 05/21/17 at 13:00; Stop 05/21/17 at 17:06; Status DC Potassium Chloride (Klor-Con) 40 meq 1X ONCE PO Last administered on 05/21/17 12:24; Start 05/21/17 at 12:00; Stop 05/21/17 at 12:01; Status DC Magnesium Sulfate/ Dextrose 50 ml @ 25 mls/hr 1X ONCE IV Last administered on 05/21/17 15:39; Start 05/21/17 at 15:00; Stop 05/21/17 at 16:59; Status DC Nicotine Polacrilex (Nicorette Gum) 1 each PRN Q1HR PRN BC SMOKING CESSATION; Start 05/21/17 at 20:30; Status Cancel Active Scripts Active Reported Gabapentin 300 Mg Capsule 300 Mg PO DAILY PRN Irbesartan 300 Mg Tablet 1 Tab PO DAILY Crestor (Rosuvastatin Calcium) 20 Mg Tablet 1 Tab PO DAILY Hydrochlorothiazide Tablet (Hydrochlorothiazide) 25 Mg Tablet 1 Tab PO DAILY Metoprolol Tartrate 50 Mg Tablet 1 Tab PO BID Vitals/I & O Vital Sign - Last 24 Hours 05/21/17 05/21/17 05/21/17 05/21/17 11:00 15:00 16:45 19:00 Temp 97.6 97.5 97.7 97.6 97.5 97.7 Pulse 72 80 92 Resp 18 20 20 B/P (MAP) 140/80 (100) 136/72 (93) 148/63 (91) Pulse Ox 96 98 98 O2 Delivery Nasal Cannula Room Air Room Air O2 Flow Rate 2.0 05/21/17 05/21/17 05/21/17 05/22/17 19:10 21:12 23:00 03:00 Temp 98.0 98.0 98.0 98.0 Pulse 92 92 75 Resp 18 18 B/P (MAP) 148/63 148/92 (110) 131/80 (97) Pulse Ox 96 97 O2 Delivery Room Air Room Air Room Air 05/22/17 05/22/17 05/22/17 05/22/17 07:00 08:00 08:55 08:55 Temp 98.1 98.1 Pulse 73 73 73 Resp 18 B/P (MAP) 144/87 (106) 144/87 144/87 Pulse Ox 90 O2 Delivery Room Air Room Air 05/22/17 08:56 Pulse 73 B/P (MAP) 144/87 Intake and Output 05/21/17 05/21/17 05/22/17 15:00 23:00 07:00 Intake Total 1080 ml 503.3333 ml 1180 ml Output Total 600 ml 700 ml Balance 480 ml 503.3333 ml 480 ml ERIK BRAUN MD May 22, 2017 10:12
[2017-05-22 11:00] VITALS: BP 118/82
--- NOTE | 2017-05-22 11:09 | PDOC ---
SUBJECTIVE ROS noHypoNatremia Doign and feeling a little better today CVS: no Orthopnea, no CP RESP: no SOB, no AMBROSE + cough GI: no Nausea, no Vomiting : no Dysuria, no Urgency OBJECTIVE Vital Signs Vital Signs Date Time Temp Pulse Resp B/P (MAP) Pulse Ox O2 Delivery O2 Flow Rate FiO2 05/22/17 08:56 73 144/87 05/22/17 08:00 Room Air 05/22/17 07:00 98.1 18 90 98.1 05/21/17 11:00 2.0 I & 0 Intake and Output 05/22/17 07:00 Intake Total 2763.3333 ml Output Total 1300 ml Balance 1463.3333 ml Intake Oral 1500 ml IV Total 1263.3333 ml Output Urine Total 900 ml Urine/Stool Mix 400 ml # Voids 3 # Bowel Movements 1 PHYSICAL EXAM Physical Exam GEN: Awake, Oriented x 3, In no distress EYES: Vision Unchanged, Conjunctiva Normal EN: No EN Drainage, Mucous Membranes moist NECK: no JVD, no JVP, Supple, no Thyromegaly CVS: S1S2, no Murmur, No Gallop, No Rub,no Edema RESP: ? Basal Rales, occ Rhonchi,no Acc. Muscle Use GI: BS + ve, NO Bruit, Non Tender, Non Distended : no CVA tenderness, no Suprapubic Tenderness DIAGNOSIS/ASSESSMENT Assessment & Plan HYPONATREMIA - better now; off of HCTZ . D/c IVF and Watch trend. HTN ? Renovascular - Duplex -ve for GISSEL HYPOKALEMIA - presumed due to low mag and HCTZ - reval after correction of Mag. ? leave off of HCTZ for now ? element of Dehydration/ Vol depeltion - better with IVF as ordered. ? ELement of CKD given ABN Renal imaging cannot be ruled out. COMMENT/RELEVANT DATA Meds Current Medications Medications (Trade) Dose Ordered Sig/Cary Start Time Stop Time Status Last Admin Dose Admin Acetaminophen (Tylenol) 650 mg PRN Q6HRS PRN 05/19/17 09:30 Amlodipine Besylate (Norvasc) 5 mg DAILY 05/20/17 10:00 05/22/17 08:55 5 MG Atorvastatin Calcium (Lipitor) 80 mg QHS 05/18/17 21:00 05/21/17 21:12 80 MG Docusate Sodium (Colace) 100 mg PRN DAILY PRN 05/19/17 09:30 Enoxaparin Sodium (Lovenox 40mg Syringe) 40 mg Q24H 05/16/17 11:30 05/21/17 12:24 40 MG Famotidine (Pepcid) 20 mg QHS 05/19/17 21:00 05/21/17 21:12 20 MG Gabapentin (Neurontin) 300 mg PRN DAILY PRN 05/18/17 21:00 Hydralazine HCl (Apresoline) 10 mg PRN Q4HRS PRN 05/19/17 09:30 Lorazepam (Ativan) 1 mg PRN Q4HRS PRN 05/16/17 00:00 05/17/17 09:07 DC 05/16/17 22:24 1 MG Losartan Potassium (Cozaar) 100 mg DAILY 05/19/17 09:00 05/22/17 08:56 100 MG Magnesium Oxide (Magnesium Oxide) 400 mg BID 05/20/17 10:00 05/22/17 08:54 400 MG Magnesium Sulfate/ Dextrose 50 ml @ 25 mls/hr 1X ONCE 05/21/17 15:00 05/21/17 16:59 DC 05/21/17 15:39 25 MLS/HR Metoprolol Tartrate (Lopressor) 50 mg BID 05/18/17 21:00 05/22/17 08:55 50 MG Morphine Sulfate 2 mg PRN Q2HR PRN 05/19/17 09:30 Nicotine Polacrilex (Nicorette Gum) 1 each PRN Q1HR PRN 05/21/17 20:30 Cancel Ondansetron HCl (Zofran) 4 mg PRN Q6HRS PRN 05/19/17 09:30 05/19/17 11:22 DC Potassium Chloride/Sodium Chloride 1,000 ml @ 100 mls/hr Q10H 05/19/17 12:00 05/21/17 19:55 DC 05/21/17 13:05 100 MLS/HR Potassium Chloride (Klor-Con) 40 meq 1X ONCE 05/21/17 12:00 05/21/17 12:01 DC 05/21/17 12:24 40 MEQ Sodium Chloride 200 ml @ 30 mls/hr 1X ONCE 05/16/17 21:00 05/17/17 03:39 DC 05/16/17 20:57 30 MLS/HR Sodium Chloride (Normal Saline Flush) 3 ml QSHIFT PRN 05/16/17 11:15 Sodium Phosphate 40 mmol/Dextrose 263.3333 ml @ 64.167 m... 1X ONCE 05/21/17 13:00 05/21/17 17:06 DC 05/21/17 14:58 64.167 MLS/HR Thiamine HCl 100 mg/Sodium Chloride 51 ml @ 102 mls/hr 1X ONCE 05/16/17 00:15 05/16/17 00:44 DC 05/16/17 01:36 102 MLS/HR Tramadol HCl (Ultram) 50 mg PRN Q6HRS PRN 05/19/17 09:30 Lab Laboratory Tests Test 05/21/17 16:58 05/22/17 06:05 Urine Collection Type Unknown Urine Color Yellow Urine Clarity Clear Urine pH 6.0 Urine Specific [place] 1.015 Urine Protein Negative mg/dL (NEG-TRACE) Urine Glucose (UA) Negative mg/dL (NEG) Urine Ketones (Stick) Trace mg/dL (NEG) Urine Blood Negative (NEG) Urine Nitrite Negative (NEG) Urine Bilirubin Negative (NEG) Urine Urobilinogen Dipstick 1.0 mg/dL (0.2 mg/dL) Urine Leukocyte Esterase Negative (NEG) Urine RBC 0 /HPF (0-2) Urine WBC 1-4 /HPF (0-4) Urine Squamous Epithelial Cells Mod /LPF Urine Bacteria Moderate /HPF (0-FEW) Urine Mucus Mod /LPF Urine Random Sodium 129 mmol/L (Not Estab.) Sodium Level 131 mmol/L (136-145) Potassium Level 4.1 mmol/L (3.5-5.1) Chloride Level 98 mmol/L (98-107) Carbon Dioxide Level 26 mmol/L (21-32) Anion Gap 7 (6-14) Magnesium Level 2.0 mg/dL (1.8-2.4) ISRAEL COKER MD May 22, 2017 11:09
[2017-05-22] MEDS: ENOXAPARIN 40 MG/0.4 ML SYRINGE. SQ SCH (12:08)
[2017-05-22 15:00] VITALS: BP 143/87
[2017-05-22 19:00] VITALS: BP 152/88
[2017-05-22] MEDS: FAMOTIDINE 20 MG TABLET. PO SCH (21:12)
[2017-05-22] MEDS: ATORVASTATIN CALCIUM 40 MG TABLET. PO SCH (21:12)
[2017-05-22 23:00] VITALS: BP 147/89
[2017-05-23 03:00] VITALS: BP 145/82
[2017-05-23 05:35] LABS: MAGNESIUM 1.8 mg/dL (1.8-2.4); POTASSIUM 3.6 mmol/L (3.5-5.1)
[2017-05-23 07:00] VITALS: BP 154/78
[2017-05-23] MEDS: MAGNESIUM OXIDE 400 MG TABLET PO SCH (08:34)
[2017-05-23] MEDS: amLODIPine BESYLATE 5 MG TABLET PO SCH (08:35)
[2017-05-23] MEDS: LOSARTAN POTASSIUM 50 MG TABLET. PO SCH (08:35)
[2017-05-23] MEDS: METOPROLOL TART IMMED RELEASE 50 MG TABLET. PO SCH (08:35)
[2017-05-23 10:48] VITALS: BP 150/81
--- NOTE | 2017-05-23 11:04 | PDOC ---
SUBJECTIVE ROS HypoNatremia Doign and feelin gmuch better OBJECTIVE Vital Signs Vital Signs Date Time Temp Pulse Resp B/P (MAP) Pulse Ox O2 Delivery O2 Flow Rate FiO2 05/23/17 10:48 97.7 71 18 150/81 (104) 95 Room Air 97.7 I & 0 Intake and Output 05/23/17 07:00 Intake Total 1200 ml Output Total 1200 ml Balance 0 ml Intake Oral 1200 ml Output Urine Total 1200 ml # Voids 1 PHYSICAL EXAM Physical Exam General Appearance: Awake: Alert Oriented x 3 Neck: No JVD or JVP Chest: CTA Nando Heart: S1 S2 Abdomen - Soft NTND Extremities - No Edema DIAGNOSIS/ASSESSMENT Assessment & Plan HypoNatremia - now resolved Pl call with Qs Problems: COMMENT/RELEVANT DATA Meds Current Medications Medications (Trade) Dose Ordered Sig/Cary Start Time Stop Time Status Last Admin Dose Admin Acetaminophen (Tylenol) 650 mg PRN Q6HRS PRN 05/19/17 09:30 Amlodipine Besylate (Norvasc) 5 mg DAILY 05/20/17 10:00 05/23/17 08:35 5 MG Atorvastatin Calcium (Lipitor) 80 mg QHS 05/18/17 21:00 05/22/17 21:12 80 MG Docusate Sodium (Colace) 100 mg PRN DAILY PRN 05/19/17 09:30 Enoxaparin Sodium (Lovenox 40mg Syringe) 40 mg Q24H 05/16/17 11:30 05/22/17 12:08 40 MG Famotidine (Pepcid) 20 mg QHS 05/19/17 21:00 05/22/17 21:12 20 MG Gabapentin (Neurontin) 300 mg PRN DAILY PRN 05/18/17 21:00 Hydralazine HCl (Apresoline) 10 mg PRN Q4HRS PRN 05/19/17 09:30 Lorazepam (Ativan) 1 mg PRN Q4HRS PRN 05/16/17 00:00 05/17/17 09:07 DC 05/16/17 22:24 1 MG Losartan Potassium (Cozaar) 100 mg DAILY 05/19/17 09:00 05/23/17 08:35 100 MG Magnesium Oxide (Magnesium Oxide) 400 mg BID 05/20/17 10:00 05/23/17 08:34 400 MG Magnesium Sulfate/ Dextrose 50 ml @ 25 mls/hr 1X ONCE 05/21/17 15:00 05/21/17 16:59 DC 05/21/17 15:39 25 MLS/HR Metoprolol Tartrate (Lopressor) 50 mg BID 05/18/17 21:00 05/23/17 08:35 50 MG Morphine Sulfate 2 mg PRN Q2HR PRN 05/19/17 09:30 Nicotine Polacrilex (Nicorette Gum) 1 each PRN Q1HR PRN 05/21/17 20:30 Cancel Ondansetron HCl (Zofran) 4 mg PRN Q6HRS PRN 05/19/17 09:30 05/19/17 11:22 DC Potassium Chloride/Sodium Chloride 1,000 ml @ 100 mls/hr Q10H 05/19/17 12:00 05/21/17 19:55 DC 05/21/17 13:05 100 MLS/HR Potassium Chloride (Klor-Con) 40 meq 1X ONCE 05/21/17 12:00 05/21/17 12:01 DC 05/21/17 12:24 40 MEQ Sodium Chloride 200 ml @ 30 mls/hr 1X ONCE 05/16/17 21:00 05/17/17 03:39 DC 05/16/17 20:57 30 MLS/HR Sodium Chloride (Normal Saline Flush) 3 ml QSHIFT PRN 05/16/17 11:15 Sodium Phosphate 40 mmol/Dextrose 263.3333 ml @ 64.167 m... 1X ONCE 05/21/17 13:00 05/21/17 17:06 DC 05/21/17 14:58 64.167 MLS/HR Thiamine HCl 100 mg/Sodium Chloride 51 ml @ 102 mls/hr 1X ONCE 05/16/17 00:15 05/16/17 00:44 DC 05/16/17 01:36 102 MLS/HR Tramadol HCl (Ultram) 50 mg PRN Q6HRS PRN 05/19/17 09:30 Lab Laboratory Tests Test 05/23/17 04:45 Sodium Level 133 mmol/L (136-145) Potassium Level 3.6 mmol/L (3.5-5.1) Chloride Level 98 mmol/L (98-107) Carbon Dioxide Level 26 mmol/L (21-32) Anion Gap 9 (6-14) Magnesium Level 1.8 mg/dL (1.8-2.4) ISRAEL COKER MD May 23, 2017 11:04
[2017-05-23] MEDS: ENOXAPARIN 40 MG/0.4 ML SYRINGE. SQ SCH (11:16)
--- NOTE | 2017-05-23 13:07 | PDOC3 ---
Discharge Summary Visit Information Date of Admission: May 15, 2017 Date of Discharge: May 23, 2017 Admitting Diagnosis Comment: 1. Hyponatremia: improving. 2. AMS: improved. 3. Agitation: resolved. 4. Hypokalemia: replete as per protocol 5. Elevated CK, most likely 2/2 above hypomagnesemia 6. Physical debility: needs PT/OT, needs SNU. Brief Hospital Course Allergies Allergies Coded Allergies Type Severity Reaction Last Updated Verified No Known Drug Allergies 05/16/17 No Vital Signs Vital Signs Date Time Temp Pulse Resp B/P (MAP) Pulse Ox O2 Delivery O2 Flow Rate FiO2 05/23/17 10:48 97.7 71 18 150/81 (104) 95 Room Air 97.7 Lab Results Laboratory Tests Test 05/21/17 16:58 05/22/17 06:05 05/23/17 04:45 Urine Collection Type Unknown Urine Color Yellow Urine Clarity Clear Urine pH 6.0 Urine Specific [place] 1.015 Urine Protein Negative mg/dL (NEG-TRACE) Urine Glucose (UA) Negative mg/dL (NEG) Urine Ketones (Stick) Trace mg/dL (NEG) Urine Blood Negative (NEG) Urine Nitrite Negative (NEG) Urine Bilirubin Negative (NEG) Urine Urobilinogen Dipstick 1.0 mg/dL (0.2 mg/dL) Urine Leukocyte Esterase Negative (NEG) Urine RBC 0 /HPF (0-2) Urine WBC 1-4 /HPF (0-4) Urine Squamous Epithelial Cells Mod /LPF Urine Bacteria Moderate /HPF (0-FEW) Urine Mucus Mod /LPF Urine Random Sodium 129 mmol/L (Not Estab.) Sodium Level 131 mmol/L (136-145) 133 mmol/L (136-145) Potassium Level 4.1 mmol/L (3.5-5.1) 3.6 mmol/L (3.5-5.1) Chloride Level 98 mmol/L (98-107) 98 mmol/L (98-107) Carbon Dioxide Level 26 mmol/L (21-32) 26 mmol/L (21-32) Anion Gap 7 (6-14) 9 (6-14) Magnesium Level 2.0 mg/dL (1.8-2.4) 1.8 mg/dL (1.8-2.4) Laboratory Tests Test 05/23/17 04:45 Sodium Level 133 mmol/L (136-145) Potassium Level 3.6 mmol/L (3.5-5.1) Chloride Level 98 mmol/L (98-107) Carbon Dioxide Level 26 mmol/L (21-32) Anion Gap 9 (6-14) Magnesium Level 1.8 mg/dL (1.8-2.4) Brief Hospital Course Ms. Orozco is a 76 old female admitted for change in MS, hyponatremia, some LAVINIA and rhabdo and hypokalemia. CO managed with renal . Numbers got better. Alcoholic, Some metal forgetfullness too. NUmbers better NA on dc is 133. Pt also on HCTZ at home, advised to stop given hyponatremia, Needs SNU, Accepted Ready for NSU MAr done COunselled Pt seen and examined COunst: renal DIspO; Snu PRoc: none time 31mins cumulative paperwork etc Discharge Information Condition at Discharge: Improved, Stable Disposition/Orders: Other (snu) Scheduled Hydrochlorothiazide (Hydrochlorothiazide Tablet ), 1 TAB PO DAILY, (Reported) Irbesartan (Irbesartan), 1 TAB PO DAILY, (Reported) Metoprolol Tartrate (Metoprolol Tartrate), 1 TAB PO BID, (Reported) Rosuvastatin Calcium (Crestor), 1 TAB PO DAILY, (Reported) Scheduled PRN Gabapentin (Gabapentin), 300 MG PO DAILY PRN for PAIN, (Reported) GERTRUDE VEGA MD May 23, 2017 13:07
[2017-05-23 15:00] VITALS: BP 140/75
== END 2017-05-23 15:33 | DRG 682 ==
LOC: 1 WEST ICU 23:14 → 5 NORTH 05-18 14:50
PROVIDERS: ADMIT Internal Medicine; ATTEND Internal Medicine
PROC: 02HV33Z Insertion of Infusion Device into Superior Vena Cava, Percutaneous Approach (ICD-10-PCS; principal; 2017-05-16)
DX: N17.9 Acute kidney failure, unspecified (principal); G93.41 Metabolic encephalopathy; E87.1 Hypo-osmolality and hyponatremia; R44.3 Hallucinations, unspecified; M62.82 Rhabdomyolysis; E86.0 Dehydration; E83.42 Hypomagnesemia; E86.1 Hypovolemia; E87.6 Hypokalemia; N18.9 Chronic kidney disease, unspecified; R45.1 Restlessness and agitation; I12.9 Hypertensive chronic kidney disease with stage 1 through stage 4 chronic kidney disease, or unspecified chronic kidney disease; I95.9 Hypotension, unspecified; M60.9 Myositis, unspecified; Z85.038 Personal history of other malignant neoplasm of large intestine; Z86.79 Personal history of other diseases of the circulatory system
CPT/HCPCS: 36415; 36569; 71010; 71020; 76770; 80048; 80051; 80053; 81001; 82436; 82533; 82550; 83605; 83735; 83935; 84100; 84133; 84295; 84300; 84443; 84550; 85027; 87086; 87641; A6539; J1650; J2060; J3480; J3490; J7030; J7060; S0028; 92526; 92610; 97110; 97116; 97530; 97535

== ENCOUNTER 2022-01-22 09:51 | Inpatient (IN) | payer MEDICARE ==
[2022-01-22] VITALS (14 sets, daily range): BP systolic 67–118; BP diastolic 31–71
[~2022-01-22] VITALS: Ht 157.5 cm; Wt 39.0 kg
[~2022-01-22 09:51] MED LIST: CRESTOR20 MG PO; GABA300C18 PO; HYDR-2145 PO; IRBE300T23 PO; METO50TA6 PO
[2022-01-22] MEDS ORDERED: AMLO5TAB4 PO (10:21)
[2022-01-22] MEDS ORDERED: LISI5TAB15 PO (10:21)
[2022-01-22] MEDS ORDERED: MAGN400T30 PO (10:21)
[2022-01-22] MEDS ORDERED: ATOR20TA58 PO (10:33)
--- NOTE | 2022-01-22 12:05 | PDOC1 ---
History and Physical Date of Admission Date of Admission DATE: 01/22/22 TIME: 12:04 Source Source: Chart review, Patient History of Present Illness History of Present Illness Ms Orozco is a 81-year-old female, thin and frail with dry skin, poor turgor, transferred from [facility] for fall tehre and SDH noted on CT head. Neuro surg called from OSH and asked for transfer here. Patient states she has been having falls, and has been feeling lightheaded. She asks me to not ask the same questions she has already been asked and tells me that the nurse already knows all her meds and the story. Relatively poor historian noted. Per OSH ER, she was recently started on a diuretic by primary care provider, loren HCTZ. Patient has a history of COPD but does not use home oxygen. EMS was called by patient's sister, but patient lives alone, Past Medical History Cardiovascular: HTN, Other Pulmonary: COPD GI: No pertinent hx Heme/Onc: Cancer Musculoskeletal: low back pain ENT: No pertinent hx Renal/: No pertinent hx Endocrine: No pertinent hx Dermatology: Eczema, Basal cell (face) Family History Family History: No Significant, Family History Unknown Social History Smoke: <1 pack per day ALCOHOL: none Drugs: None Current Medications Current Medications Active Scripts Active Reported Atorvastatin Calcium 20 Mg Tablet 1 Tab PO AT HS Lisinopril 5 Mg Tablet 1 Tab PO HS Norvasc (Amlodipine Besylate) 5 Mg Tablet 1 Tab PO DAILY Magnesium (Magnesium Oxide) 400 Mg Tablet 400 Mg PO DAILY Metoprolol Tartrate 50 Mg Tablet 1 Tab PO BID Allergies Allergies: Coded Allergies: No Known Drug Allergies (Unverified , 05/16/17) ROS General: No: Chills, Night Sweats, Fatigue, Malaise, Appetite, Other PSYCHOLOGICAL ROS: No: Anxiety, Behavioral Disorder, Concentration difficultie, Decreased libido, Depression, Disorientation, Hallucinations, Hostility, Irritablity, Memory difficulties, Mood Swings, Obsessive thoughts, Physical abu se, Sexual abuse, Sleep disturbances, Suicidal ideation, Other Eyes: No Blurry vision, No Decreased vision, No Double vision, No Dry eyes, No Excessive tearing, No Eye Pain, No Itchy Eyes, No Loss of vision, No Photophobia, No Scotomata, No Uses contacts, No Uses glasses, No Other HEENT: YES: Heacaches; No: Hearing change, Nasal congestion, Nasal discharge, Oral lesions, Sinus pain, Sore Throat, Epistaxis, Sneezing, Snoring, Tinnitus, Vertigo, Vocal changes, Other Respiratory: No: Cough, Hemoptysis, Orthopnea, Pleuritic Pain, Shortness of breath, SOB with excertion, Sputum Changes, Stridor, Tachypnea, Wheezing, Other Cardiovascular: No Chest Pain, No Palpitations, No Orthopnea, No Paroxysmal Noc. Dyspnea, No Edema, No Lt Headedness, No Other Gastrointestinal: No Nausea, No Vomiting, No Abdominal Pain, No Diarrhea, No Constipation, No Melena, No Hematochezia, No Other Musculoskeletal: Yes Gait Disturbance, Yes Joint Stiffness, Yes Joint Swelling, Yes Muscular Weakness (poor arm movement, ), Yes Other (marked muscle wasting ) Neurological: Yes Confusion, Yes Gait Disturbance Skin: Yes Dry Skin, Yes Eczema, Yes Mole Changes, Yes Rash Physical Exam Physical Exam appears markedly weak General: Alert, mild distress, Other (not very cooperative and somewaht confused, ) HEENT: EOMI, Other (dentures, dry, poor fit to dentures) Lungs: Normal air movement Heart: no gallops, no murmurs Abdomen: Normal bowel sounds, Soft Rectal Exam: not examined Extremities: No cyanosis, Other (msucle wasting, very poor tone, a few inches of ROM of left armm, ) Skin: Other (basal cell face, dry skin, poor turgor, very dry) Neuro: Normal speech, Normal tone Vitals Vitals Vital Signs Date Time Temp Pulse Resp B/P (MAP) Pulse Ox O2 Delivery O2 Flow Rate FiO2 01/22/22 11:22 65 16 90/48 (62) 88 Nasal Cannula 2.0 01/22/22 09:52 97.6 97.6 Labs Labs Na 114, K+ 3.4, cl 79, C02 29, BUN 27, Cr 1.2, glucose 105 VTE Prophylaxis Ordered VTE Prophylaxis Devices: Yes VTE Pharmacological Prophylaxi: Yes Assessment/Plan Assessment/Plan critical hyponatremia, 114, similar admit here 5 years ago, dry, better with fluid then, will recheck labs now, check UA, gentle NS fall, weakness subdural hematoma, traumatic, ICU admit, Neurosurg consult, repeat scan as able weaknss dehydration tobacco use disorder, COPD severe malnutrition Justifications for Admission Other Justification JATINDER GALLOWAY MD Jan 22, 2022 12:05
[2022-01-22] MEDS ORDERED: IV NORMAL SALINE 1000ML BAG 1,000 ML IV ONE (12:30)
[2022-01-22 13:56] LABS: CALCIUM 9.2 mg/dL (8.5-10.1); CREATININE 1.2 mg/dL (0.6-1.0); GFR 43.2
[2022-01-22] MEDS: LIDOCAINE (700MG/PATCH) PATCH. TD SCH (15:13)
--- NOTE | 2022-01-22 16:32 | PDOC ---
Provider Note Date of Service: DATE: 01/22/22 TIME: 16:22 Provider Note Patient seen and examined at 1000 consulted for SDH reports recent fall, denies headache, no complaints A & O x 3, Follows commands, neuro intact States that she is not going to have surgery and that she needs to be discharged by because she has things to do CT head reviewed with Dr. Alonso- right parietal SDH, No shift Will keep in ICU with neuro checks and repeat CT in AM d/w RN Justifications for Admission Other Justification MERCED RUBIN CARDIOPULMONARY TECHNICIAN AND EEG TECH Jan 22, 2022 16:32
[2022-01-22 16:50] LABS: BILIRUBIN,URINE NEGATIVE (NEG); CLARITY,URINE CLOUDY; COLOR,URINE YELLOW; NITRITE,URINE NEGATIVE (NEG); PH,URINE 6.5 (<5.0-8.0); PROTEIN,URINE NEGATIVE (NEG-TRACE); UROBILINOGEN,URINE 0.2 mg/dL (0.2 mg/dL)
[2022-01-22 16:51] LABS: HYALINE CASTS, URINE FEW /HPF
[2022-01-22 16:52] LABS: BACTERIA,URINE MODERATE /HPF (0-FEW); RBC,URINE OCC /HPF (0-2)
[2022-01-22] MEDS ORDERED: CARB15DR3 EACHEYE (19:13)
[2022-01-22] MEDS ORDERED: ATOR40TA59 PO (19:13)
[2022-01-22] MEDS ORDERED: TROL35.4 TP (19:13)
[2022-01-22] MEDS ORDERED: LISI-130 PO (19:13)
[2022-01-22] MEDS ORDERED: DORZ10DR21 OS (19:13)
[2022-01-22] MEDS ORDERED: IPRATRPIUM/ALBUTEROL 0.5/2.5MG 3 ML NEBU. NEB PRN (19:15)
[2022-01-22] MEDS ORDERED: HYDR-2145 PO (19:37)
[2022-01-22] MEDS ORDERED: POTASSIUM CHLORIDE 20 MEQ TABLET.ER. PO ONE (20:00)
[2022-01-22] MEDS: PATCH REMOVAL. MC SCH (23:00)
[2022-01-22] MEDS ORDERED: ACETAMINOPHEN 325 MG TABLET. PO PRN (23:45)
[2022-01-23] VITALS (17 sets, daily range): BP systolic 81–149; BP diastolic 51–87
[2022-01-23 04:33] LABS: BASO % 0 % (0-3); EOS % 0 % (0-3); HEMATOCRIT 32.6 % (36.0-47.0); HEMOGLOBIN 11.3 g/dL (12.0-15.5); LYMPH # 0.6 x10^3/uL (1.0-4.8); LYMPH % 7 % (24-48); MEAN CORPUSCULAR HEMOGLOBIN 30 pg (25-35); MEAN CORPUSCULAR HGB CONC 35 g/dL (31-37); MEAN CORPUSCULAR VOLUME 86 fL (79-100); MONO # 0.4 x10^3/uL (0.0-1.1); MONO % 5 % (0-9); NEUT # 8.5 x10^3/uL (1.8-7.7); NEUT % 88 % (31-73); PLATELET COUNT 135 x10^3/uL (140-400); RED CELL DISTRIBUTION WIDTH 13.1 % (11.5-14.5); WHITE BLOOD COUNT 9.7 x10^3/uL (4.0-11.0)
[2022-01-23 04:48] LABS: ALBUMIN 3.1 g/dL (3.4-5.0); ALBUMIN/GLOBULIN RATIO 0.8 (1.0-1.7); CREATININE 0.9 mg/dL (0.6-1.0); GFR 60.2; POTASSIUM 3.7 mmol/L (3.5-5.1); TOTAL BILIRUBIN 1.2 mg/dL (0.2-1.0); TOTAL PROTEIN 7.1 g/dL (6.4-8.2)
--- NOTE | 2022-01-23 09:08 | RAD ---
CT Head without contrast 01/23/2022 8:07 AM Indication: Follow-up intracranial hemorrhage. Comparison: CT head without contrast, yesterday Technique: Multidetector CT imaging of the brain was performed without contrast Findings: Allowing for differences in slice selection , the right extra-axial hematoma grossly stable in size. Underlying mass effect is stable. No new hemorrhage is identified. Global atrophic changes are again noted. No midline shift or herniation is seen. No acute osseous changes identified in the interim. Impression: 1. Grossly stable appearance of right-sided extra-axial hemorrhage. Atypical morphology may reflect a n epidural hematoma, subdural hematoma, or combination thereof . 2. Age-related atrophy, and evidence of chronic small vessel disease as described CT DOSING PQRS STATEMENT: One or more of the following individualized dose reduction techniques were utilized for this examinat ion: 1. Automated exposure control 2. Adjustment of the mA and/or kV according to patient size 3. Use of iterative reconstruction technique Electronically signed by: Bulmaro Echavarria MD (01/23/2022 9:05 AM) [id number]
--- NOTE | 2022-01-23 10:27 | PDOC2 ---
CONSULT Date of Consult Date of Consult DATE: 01/23/22 TIME: 10:21 Reason for Consult Reason for Consult: LOW NA Referring Physician Referring Physician: JUDITH Identification/Chief Complaint Chief Complaint FALL AND CONFUSION Source Source: Chart review History of Present Illness Reason for Visit: THIS IS AN 81 YR OLD WITH FALL AND A SDH. NA OF 116. SHE HAS HAD LOW NA IN THE PAST IN 2017 WITH NA OF 107. AT THAT TIME IT WAS RELATED TO THIAZIDE USE AND DEHYDRATION. CURRENTLY PER MED LIST SHE IS ON HCTZ AGAIN. SHE IS BEING EVALUATED BY NEUROSURGERY. OTHER THAN FEELING LIGHTHEADED AND STUMBLING NO OTHER SPECIFIC COMPLAINTS. Past Medical History Past Medical History HX OF HYPONATREMIA Cardiovascular: HTN, Other Pulmonary: COPD GI: No pertinent hx Heme/Onc: Cancer Musculoskeletal: low back pain ENT: No pertinent hx Renal/: No pertinent hx Endocrine: No pertinent hx Dermatology: Eczema, Basal cell (face) Family History Family History: No Significant, Family History Unknown Social History <1 pack per day ALCOHOL: none Drugs: None Lives: with Family Current Medications Current Medications Current Medications Sodium Chloride 1,000 ml @ 75 mls/hr 1X ONCE IV Last administered on 01/22/22at 14:35; Start 01/22/22 at 12:30; Stop 01/23/22 at 01:49; Status DC Lidocaine (Lidoderm) 1 patch DAILY TD Last administered on 01/22/22at 15:13; Start 01/22/22 at 15:00 Miscellaneous (Lidoderm Patch Removal) 1 ea QHS MC Last administered on 01/22/22at 23:00; Start 01/22/22 at 21:00 Albuterol/ Ipratropium (Duoneb) 3 ml RTQID PRN NEB SHORTNESS OF BREATH; Start 01/22/22 at 19:15 Potassium Chloride (Klor-Con) 40 meq 1X ONCE PO Last administered on 01/22/22at 21:06; Start 01/22/22 at 20:00; Stop 01/22/22 at 20:01; Status DC Acetaminophen (Tylenol) 650 mg PRN Q6HRS PRN PO MILD PAIN / TEMP > 100.3'F Last administered on 01/22/22at 23:48; Start 01/22/22 at 23:45 Tramadol HCl (Ultram) 50 mg PRN Q6HRS PRN PO PAIN MODERATE/SEVERE; Start 01/22/22 at 23:45 Active Scripts Active Reported Hydrochlorothiazide Tablet (Hydrochlorothiazide) 25 Mg Tablet 25 Mg PO DAILY Refresh Optive Eye Drops (Carboxymethylcellulos/Glycerin) 15 Ml Drops 1 Drop EACHEYE QID Aspercreme 10% Cream (Trolamine Salicylate/Aloe Vera) 35.4 Gm Cream..g. 1 Chip TP QID PRN 14 Days Cosopt Eye Drops (Dorzolamide Hcl/Timolol Maleat) 10 Ml Drops 1 Drop OS BID Atorvastatin Calcium 40 Mg Tablet 40 Mg PO HS Lisinopril 40 Mg Tablet 1 Tab PO QHS Norvasc (Amlodipine Besylate) 5 Mg Tablet 1 Tab PO DAILY Magnesium (Magnesium Oxide) 400 Mg Tablet 400 Mg PO DAILY Metoprolol Tartrate 50 Mg Tablet 1 Tab PO BID Allergies Allergies: Coded Allergies: Penicillins (Verified Allergy, Intermediate, hives, 01/22/22) ROS Review of System UNRELIABLE Physical Exam General: Alert, Cooperative, No acute distress HEENT: Atraumatic, PERRLA, Other (DRY MUCOSA) Lungs: Clear to auscultation Heart: Regular rate Abdomen: Normal bowel sounds, Soft, No tenderness Extremities: No clubbing Skin: No breakdown Neuro: Other (CONFUSED, NO ASYMMETRY) Psych/Mental Status: Other (CONFUSED AND APPROPRIATE) MUSCULOSKELETAL: No joint tenderness, No deformity, Other (DIFFUSE ATROPHY) Vitals VITALS Vital Signs Date Time Temp Pulse Resp B/P (MAP) Pulse Ox O2 Delivery O2 Flow Rate FiO2 01/23/22 06:00 68 16 139/78 (98) 96 Nasal Cannula 4.0 01/23/22 04:00 98.4 98.4 Labs Labs Laboratory Tests Test 01/22/22 13:41 01/22/22 16:05 01/23/22 04:25 Sodium Level 115 mmol/L (136-145) 116 mmol/L (136-145) Potassium Level 3.0 mmol/L (3.5-5.1) 3.7 mmol/L (3.5-5.1) Chloride Level 78 mmol/L (98-107) 82 mmol/L (98-107) Carbon Dioxide Level 27 mmol/L (21-32) 29 mmol/L (21-32) Anion Gap 10 (6-14) 5 (6-14) Blood Urea Nitrogen 27 mg/dL (7-20) 20 mg/dL (7-20) Creatinine 1.2 mg/dL (0.6-1.0) 0.9 mg/dL (0.6-1.0) Estimated GFR (Cockcroft-Gault) 43.2 60.2 Glucose Level 139 mg/dL (70-99) 116 mg/dL (70-99) Calcium Level 9.2 mg/dL (8.5-10.1) 9.0 mg/dL (8.5-10.1) Urine Collection Type Unknown Urine Color Yellow Urine Clarity Cloudy Urine pH 6.5 (<5.0-8.0) Urine Specific [place] 1.020 (1.000-1.030) Urine Protein Negative mg/dL (NEG-TRACE) Urine Glucose (UA) Negative mg/dL (NEG) Urine Ketones (Stick) Negative mg/dL (NEG) Urine Blood Negative (NEG) Urine Nitrite Negative (NEG) Urine Bilirubin Negative (NEG) Urine Urobilinogen Dipstick 0.2 mg/dL (0.2 mg/dL) Urine Leukocyte Esterase Trace (NEG) Urine RBC Occ /HPF (0-2) Urine WBC 1-4 /HPF (0-4) Urine Squamous Epithelial Cells Many /LPF Urine Bacteria Moderate /HPF (0-FEW) Urine Hyaline Casts Few /HPF Urine Mucus Slight /LPF White Blood Count 9.7 x10^3/uL (4.0-11.0) Red Blood Count 3.80 x10^6/uL (3.50-5.40) Hemoglobin 11.3 g/dL (12.0-15.5) Hematocrit 32.6 % (36.0-47.0) Mean Corpuscular Volume 86 fL (79-100) Mean Corpuscular Hemoglobin 30 pg (25-35) Mean Corpuscular Hemoglobin Concent 35 g/dL (31-37) Red Cell Distribution Width 13.1 % (11.5-14.5) Platelet Count 135 x10^3/uL (140-400) Neutrophils (%) (Auto) 88 % (31-73) Lymphocytes (%) (Auto) 7 % (24-48) Monocytes (%) (Auto) 5 % (0-9) Eosinophils (%) (Auto) 0 % (0-3) Basophils (%) (Auto) 0 % (0-3) Neutrophils # (Auto) 8.5 x10^3/uL (1.8-7.7) Lymphocytes # (Auto) 0.6 x10^3/uL (1.0-4.8) Monocytes # (Auto) 0.4 x10^3/uL (0.0-1.1) Eosinophils # (Auto) 0.0 x10^3/uL (0.0-0.7) Basophils # (Auto) 0.0 x10^3/uL (0.0-0.2) BUN/Creatinine Ratio 22 (6-20) Total Bilirubin 1.2 mg/dL (0.2-1.0) Aspartate Amino Transf (AST/SGOT) 22 U/L (15-37) Alanine Aminotransferase (ALT/SGPT) 18 U/L (14-59) Alkaline Phosphatase 110 U/L (46-116) Total Protein 7.1 g/dL (6.4-8.2) Albumin 3.1 g/dL (3.4-5.0) Albumin/Globulin Ratio 0.8 (1.0-1.7) Laboratory Tests Test 01/22/22 13:41 01/22/22 16:05 01/23/22 04:25 Sodium Level 115 mmol/L (136-145) 116 mmol/L (136-145) Potassium Level 3.0 mmol/L (3.5-5.1) 3.7 mmol/L (3.5-5.1) Chloride Level 78 mmol/L (98-107) 82 mmol/L (98-107) Carbon Dioxide Level 27 mmol/L (21-32) 29 mmol/L (21-32) Anion Gap 10 (6-14) 5 (6-14) Blood Urea Nitrogen 27 mg/dL (7-20) 20 mg/dL (7-20) Creatinine 1.2 mg/dL (0.6-1.0) 0.9 mg/dL (0.6-1.0) Estimated GFR (Cockcroft-Gault) 43.2 60.2 Glucose Level 139 mg/dL (70-99) 116 mg/dL (70-99) Calcium Level 9.2 mg/dL (8.5-10.1) 9.0 mg/dL (8.5-10.1) Urine Collection Type Unknown Urine Color Yellow Urine Clarity Cloudy Urine pH 6.5 (<5.0-8.0) Urine Specific [place] 1.020 (1.000-1.030) Urine Protein Negative mg/dL (NEG-TRACE) Urine Glucose (UA) Negative mg/dL (NEG) Urine Ketones (Stick) Negative mg/dL (NEG) Urine Blood Negative (NEG) Urine Nitrite Negative (NEG) Urine Bilirubin Negative (NEG) Urine Urobilinogen Dipstick 0.2 mg/dL (0.2 mg/dL) Urine Leukocyte Esterase Trace (NEG) Urine RBC Occ /HPF (0-2) Urine WBC 1-4 /HPF (0-4) Urine Squamous Epithelial Cells Many /LPF Urine Bacteria Moderate /HPF (0-FEW) Urine Hyaline Casts Few /HPF Urine Mucus Slight /LPF White Blood Count 9.7 x10^3/uL (4.0-11.0) Red Blood Count 3.80 x10^6/uL (3.50-5.40) Hemoglobin 11.3 g/dL (12.0-15.5) Hematocrit 32.6 % (36.0-47.0) Mean Corpuscular Volume 86 fL (79-100) Mean Corpuscular Hemoglobin 30 pg (25-35) Mean Corpuscular Hemoglobin Concent 35 g/dL (31-37) Red Cell Distribution Width 13.1 % (11.5-14.5) Platelet Count 135 x10^3/uL (140-400) Neutrophils (%) (Auto) 88 % (31-73) Lymphocytes (%) (Auto) 7 % (24-48) Monocytes (%) (Auto) 5 % (0-9) Eosinophils (%) (Auto) 0 % (0-3) Basophils (%) (Auto) 0 % (0-3) Neutrophils # (Auto) 8.5 x10^3/uL (1.8-7.7) Lymphocytes # (Auto) 0.6 x10^3/uL (1.0-4.8) Monocytes # (Auto) 0.4 x10^3/uL (0.0-1.1) Eosinophils # (Auto) 0.0 x10^3/uL (0.0-0.7) Basophils # (Auto) 0.0 x10^3/uL (0.0-0.2) BUN/Creatinine Ratio 22 (6-20) Total Bilirubin 1.2 mg/dL (0.2-1.0) Aspartate Amino Transf (AST/SGOT) 22 U/L (15-37) Alanine Aminotransferase (ALT/SGPT) 18 U/L (14-59) Alkaline Phosphatase 110 U/L (46-116) Total Protein 7.1 g/dL (6.4-8.2) Albumin 3.1 g/dL (3.4-5.0) Albumin/Globulin Ratio 0.8 (1.0-1.7) Images Images PATIENT: RAZIA VALLEJO AACCOUNT: [id number] : 1940 LOCATION: [facility] ICU AGE: 81 SEX: F EXAM STATUS: ADM IN ORD. PHYSICIAN: MARIA M FRANKS MD REASON: f/u SDH PROCEDURE: CT HEAD WO CONTRAST CT Head without contrast 01/23/2022 8:07 AM Indication: Follow-up intracranial hemorrhage. Comparison: CT head without contrast, yesterday Technique: Multidetector CT imaging of the brain was performed without contrast Findings: Allowing for differences in slice selection , the right extra-axial hematoma grossly stable in size. Underlying mass effect is stable. No new hemorrhage is identified. Global atrophic changes are again noted. No midline shift or herniation is seen. No acute osseous changes identified in the interim. Impression: 1. Grossly stable appearance of right-sided extra-axial hemorrhage. Atypical morphology may reflect an epidural hematoma, subdural hematoma, or combination thereof . 2. Age-related atrophy, and evidence of chronic small vessel disease as described CT DOSING PQRS STATEMENT: One or more of the following individualized dose reduction techniques were utilized for this examination: 1. Automated exposure control 2. Adjustment of the mA and/or kV according to patient size 3. Use of iterative reconstruction technique Electronically signed by: Bulmaro Echavarria MD (01/23/2022 9:05 AM) [id number] Assessment/Plan Assessment/Plan IMP CRITICAL HYPONATREMIA DEHYDRATION ACUTE MET ENCEPHALOPATHY SUBDURAL HEMATOMA COPD HX-TOBACCO USE PLAN HYDRATION 3% SALINE CONSIDER CXRAY NEUROSURGERY EVAL WILL FOLLOW KEREN HAMEED MD Jan 23, 2022 10:27
[2022-01-23] MEDS: LIDOCAINE (700MG/PATCH) PATCH. TD SCH (10:39)
--- NOTE | 2022-01-23 11:15 | PDOC ---
[employer] PROGRESS NOTE Date of Service DOS: DATE: 01/23/22 TIME: 11:11 Chief Complaint Chief Complaint Severe hyponatremia --> up to 115 today, consult to Nephrology; check urine osm, serum osm, urine lytes; suspect related to dehydration Subdural Hematoma 2/2 weakness fall --> repeat CT scan showing stable bleed, NSGY following dehydration tobacco use disorder, COPD severe malnutrition History of Present Illness History of Present Illness 01/23 Patient evaluated examined at bedside. Said she is doing well a little bit pain in her back and backside of her head. Asked if she was discharging home today informed her that was not the plan that even though bleed stable her sodium is critically low. She is very displeased but understands the need for ongoing admission. She is critically ill. 35 minutes critical care time. Vitals/I&O Vitals/I&O: Vital Signs Date Time Temp Pulse Resp B/P (MAP) Pulse Ox O2 Delivery O2 Flow Rate FiO2 01/23/22 06:00 68 16 139/78 (98) 96 Nasal Cannula 4.0 01/23/22 04:00 98.4 98.4 I & O 01/22/22 01/22/22 01/23/22 15:00 23:00 07:00 Intake Total 440 ml 1370 ml Output Total 0 ml 275 ml 125 ml Balance 0 ml 165 ml 1245 ml Physical Exam General: Alert, Oriented X3, Cooperative, No acute distress Heart: Regular rate Lungs: Clear Abdomen: Normal bowel sounds, Soft, No tenderness Extremities: No edema, Normal pulses Skin: No breakdown Labs Labs: Laboratory Tests Test 01/22/22 13:41 01/22/22 16:05 01/23/22 04:25 Sodium Level 115 mmol/L (136-145) 116 mmol/L (136-145) Potassium Level 3.0 mmol/L (3.5-5.1) 3.7 mmol/L (3.5-5.1) Chloride Level 78 mmol/L (98-107) 82 mmol/L (98-107) Carbon Dioxide Level 27 mmol/L (21-32) 29 mmol/L (21-32) Anion Gap 10 (6-14) 5 (6-14) Blood Urea Nitrogen 27 mg/dL (7-20) 20 mg/dL (7-20) Creatinine 1.2 mg/dL (0.6-1.0) 0.9 mg/dL (0.6-1.0) Estimated GFR (Cockcroft-Gault) 43.2 60.2 Glucose Level 139 mg/dL (70-99) 116 mg/dL (70-99) Calcium Level 9.2 mg/dL (8.5-10.1) 9.0 mg/dL (8.5-10.1) Urine Collection Type Unknown Urine Color Yellow Urine Clarity Cloudy Urine pH 6.5 (<5.0-8.0) Urine Specific [place] 1.020 (1.000-1.030) Urine Protein Negative mg/dL (NEG-TRACE) Urine Glucose (UA) Negative mg/dL (NEG) Urine Ketones (Stick) Negative mg/dL (NEG) Urine Blood Negative (NEG) Urine Nitrite Negative (NEG) Urine Bilirubin Negative (NEG) Urine Urobilinogen Dipstick 0.2 mg/dL (0.2 mg/dL) Urine Leukocyte Esterase Trace (NEG) Urine RBC Occ /HPF (0-2) Urine WBC 1-4 /HPF (0-4) Urine Squamous Epithelial Cells Many /LPF Urine Bacteria Moderate /HPF (0-FEW) Urine Hyaline Casts Few /HPF Urine Mucus Slight /LPF White Blood Count 9.7 x10^3/uL (4.0-11.0) Red Blood Count 3.80 x10^6/uL (3.50-5.40) Hemoglobin 11.3 g/dL (12.0-15.5) Hematocrit 32.6 % (36.0-47.0) Mean Corpuscular Volume 86 fL (79-100) Mean Corpuscular Hemoglobin 30 pg (25-35) Mean Corpuscular Hemoglobin Concent 35 g/dL (31-37) Red Cell Distribution Width 13.1 % (11.5-14.5) Platelet Count 135 x10^3/uL (140-400) Neutrophils (%) (Auto) 88 % (31-73) Lymphocytes (%) (Auto) 7 % (24-48) Monocytes (%) (Auto) 5 % (0-9) Eosinophils (%) (Auto) 0 % (0-3) Basophils (%) (Auto) 0 % (0-3) Neutrophils # (Auto) 8.5 x10^3/uL (1.8-7.7) Lymphocytes # (Auto) 0.6 x10^3/uL (1.0-4.8) Monocytes # (Auto) 0.4 x10^3/uL (0.0-1.1) Eosinophils # (Auto) 0.0 x10^3/uL (0.0-0.7) Basophils # (Auto) 0.0 x10^3/uL (0.0-0.2) BUN/Creatinine Ratio 22 (6-20) Total Bilirubin 1.2 mg/dL (0.2-1.0) Aspartate Amino Transf (AST/SGOT) 22 U/L (15-37) Alanine Aminotransferase (ALT/SGPT) 18 U/L (14-59) Alkaline Phosphatase 110 U/L (46-116) Total Protein 7.1 g/dL (6.4-8.2) Albumin 3.1 g/dL (3.4-5.0) Albumin/Globulin Ratio 0.8 (1.0-1.7) Comment Review of Relevant I have reviewed the following items yanet (where applicable) has been applied. Medications: Current Medications Medications (Trade) Dose Ordered Sig/Cary Route PRN Reason Start Time Stop Time Status Last Admin Dose Admin Sodium Chloride 1,000 ml @ 75 mls/hr 1X ONCE IV 01/22/22 12:30 01/23/22 01:49 DC 01/22/22 14:35 Lidocaine (Lidoderm) 1 patch DAILY TD 01/22/22 15:00 01/23/22 10:39 Miscellaneous (Lidoderm Patch Removal) 1 ea QHS MC 01/22/22 21:00 01/22/22 23:00 Potassium Chloride (Klor-Con) 40 meq 1X ONCE PO 01/22/22 20:00 01/22/22 20:01 DC 01/22/22 21:06 Acetaminophen (Tylenol) 650 mg PRN Q6HRS PRN PO MILD PAIN / TEMP > 100.3'F 01/22/22 23:45 01/22/22 23:48 Justifications for Admission Other Justification ABBY BLANC MD Jan 23, 2022 11:15
[2022-01-23] MEDS ORDERED: SODIUM CHLORIDE 3 % 200 ML IV ONE (11:30)
[2022-01-23] MEDS: PATCH REMOVAL. MC SCH (19:42)
[2022-01-23] MEDS: IV NORMAL SALINE 1000ML BAG 1,000 ML IV SCH (19:42)
[2022-01-23] MEDS: TIMOLOL 0.5% OPHTH SOLUTION 5ML BOTTLE. OS SCH (19:46)
[2022-01-23] MEDS: DORZOLAMIDE 2% OPHTH SOLUTION 10ML BOTTLE. OS SCH (19:48)
[2022-01-23] MEDS: POLYVINYL ALCOHOL 1.4% OPHTH SOLUTION 15ML BOTTLE. OS SCH (20:09)
--- NOTE | 2022-01-23 22:35 | PDOC ---
PROGRESS NOTES Date of Service DATE: 01/23/22 TIME: 22:33 Subjective Subjective Patient seen and examined at 1330 awake, alert no complaints Objective Objective Vital Signs Date Time Temp Pulse Resp B/P (MAP) Pulse Ox O2 Delivery O2 Flow Rate FiO2 01/23/22 22:16 97.0 84 18 135/66 (89) 93 Nasal Cannula 2.0 97.0 Intake and Output 01/23/22 06:59 Intake Total 1810 ml Output Total 400 ml Balance 1410 ml Intake Oral 720 ml IV Total 1090 ml Output Urine Total 400 ml Physical Exam General: Alert, Oriented X3, Cooperative, No acute distress MUSCULOSKELETAL: Other (BASHIR) Plan Plan of Care SDH stable on f/u CT head hyponatremia ok to transfer to floor from NS standpoint will need a f/u CT head next week Comment Review of Relevant I have reviewed the following items yanet (where applicable) has been applied. Labs Laboratory Tests Test 01/22/22 13:41 01/22/22 16:05 01/23/22 04:25 01/23/22 16:30 Sodium Level 115 mmol/L (136-145) 116 mmol/L (136-145) 123 mmol/L (136-145) Potassium Level 3.0 mmol/L (3.5-5.1) 3.7 mmol/L (3.5-5.1) Chloride Level 78 mmol/L (98-107) 82 mmol/L (98-107) Carbon Dioxide Level 27 mmol/L (21-32) 29 mmol/L (21-32) Anion Gap 10 (6-14) 5 (6-14) Blood Urea Nitrogen 27 mg/dL (7-20) 20 mg/dL (7-20) Creatinine 1.2 mg/dL (0.6-1.0) 0.9 mg/dL (0.6-1.0) Estimated GFR (Cockcroft-Gault) 43.2 60.2 Glucose Level 139 mg/dL (70-99) 116 mg/dL (70-99) Calcium Level 9.2 mg/dL (8.5-10.1) 9.0 mg/dL (8.5-10.1) Urine Collection Type Unknown Urine Color Yellow Urine Clarity Cloudy Urine pH 6.5 (<5.0-8.0) Urine Specific [place] 1.020 (1.000-1.030) Urine Protein Negative mg/dL (NEG-TRACE) Urine Glucose (UA) Negative mg/dL (NEG) Urine Ketones (Stick) Negative mg/dL (NEG) Urine Blood Negative (NEG) Urine Nitrite Negative (NEG) Urine Bilirubin Negative (NEG) Urine Urobilinogen Dipstick 0.2 mg/dL (0.2 mg/dL) Urine Leukocyte Esterase Trace (NEG) Urine RBC Occ /HPF (0-2) Urine WBC 1-4 /HPF (0-4) Urine Squamous Epithelial Cells Many /LPF Urine Bacteria Moderate /HPF (0-FEW) Urine Hyaline Casts Few /HPF Urine Mucus Slight /LPF White Blood Count 9.7 x10^3/uL (4.0-11.0) Red Blood Count 3.80 x10^6/uL (3.50-5.40) Hemoglobin 11.3 g/dL (12.0-15.5) Hematocrit 32.6 % (36.0-47.0) Mean Corpuscular Volume 86 fL (79-100) Mean Corpuscular Hemoglobin 30 pg (25-35) Mean Corpuscular Hemoglobin Concent 35 g/dL (31-37) Red Cell Distribution Width 13.1 % (11.5-14.5) Platelet Count 135 x10^3/uL (140-400) Neutrophils (%) (Auto) 88 % (31-73) Lymphocytes (%) (Auto) 7 % (24-48) Monocytes (%) (Auto) 5 % (0-9) Eosinophils (%) (Auto) 0 % (0-3) Basophils (%) (Auto) 0 % (0-3) Neutrophils # (Auto) 8.5 x10^3/uL (1.8-7.7) Lymphocytes # (Auto) 0.6 x10^3/uL (1.0-4.8) Monocytes # (Auto) 0.4 x10^3/uL (0.0-1.1) Eosinophils # (Auto) 0.0 x10^3/uL (0.0-0.7) Basophils # (Auto) 0.0 x10^3/uL (0.0-0.2) BUN/Creatinine Ratio 22 (6-20) Total Bilirubin 1.2 mg/dL (0.2-1.0) Aspartate Amino Transf (AST/SGOT) 22 U/L (15-37) Alanine Aminotransferase (ALT/SGPT) 18 U/L (14-59) Alkaline Phosphatase 110 U/L (46-116) Total Protein 7.1 g/dL (6.4-8.2) Albumin 3.1 g/dL (3.4-5.0) Albumin/Globulin Ratio 0.8 (1.0-1.7) Laboratory Tests Test 01/23/22 04:25 01/23/22 16:30 White Blood Count 9.7 x10^3/uL (4.0-11.0) Red Blood Count 3.80 x10^6/uL (3.50-5.40) Hemoglobin 11.3 g/dL (12.0-15.5) Hematocrit 32.6 % (36.0-47.0) Mean Corpuscular Volume 86 fL (79-100) Mean Corpuscular Hemoglobin 30 pg (25-35) Mean Corpuscular Hemoglobin Concent 35 g/dL (31-37) Red Cell Distribution Width 13.1 % (11.5-14.5) Platelet Count 135 x10^3/uL (140-400) Neutrophils (%) (Auto) 88 % (31-73) Lymphocytes (%) (Auto) 7 % (24-48) Monocytes (%) (Auto) 5 % (0-9) Eosinophils (%) (Auto) 0 % (0-3) Basophils (%) (Auto) 0 % (0-3) Neutrophils # (Auto) 8.5 x10^3/uL (1.8-7.7) Lymphocytes # (Auto) 0.6 x10^3/uL (1.0-4.8) Monocytes # (Auto) 0.4 x10^3/uL (0.0-1.1) Eosinophils # (Auto) 0.0 x10^3/uL (0.0-0.7) Basophils # (Auto) 0.0 x10^3/uL (0.0-0.2) Sodium Level 116 mmol/L (136-145) 123 mmol/L (136-145) Potassium Level 3.7 mmol/L (3.5-5.1) Chloride Level 82 mmol/L (98-107) Carbon Dioxide Level 29 mmol/L (21-32) Anion Gap 5 (6-14) Blood Urea Nitrogen 20 mg/dL (7-20) Creatinine 0.9 mg/dL (0.6-1.0) Estimated GFR (Cockcroft-Gault) 60.2 BUN/Creatinine Ratio 22 (6-20) Glucose Level 116 mg/dL (70-99) Calcium Level 9.0 mg/dL (8.5-10.1) Total Bilirubin 1.2 mg/dL (0.2-1.0) Aspartate Amino Transf (AST/SGOT) 22 U/L (15-37) Alanine Aminotransferase (ALT/SGPT) 18 U/L (14-59) Alkaline Phosphatase 110 U/L (46-116) Total Protein 7.1 g/dL (6.4-8.2) Albumin 3.1 g/dL (3.4-5.0) Albumin/Globulin Ratio 0.8 (1.0-1.7) Medications Current Medications Sodium Chloride 1,000 ml @ 75 mls/hr 1X ONCE IV Last administered on 01/22/22at 14:35; Start 01/22/22 at 12:30; Stop 01/23/22 at 01:49; Status DC Lidocaine (Lidoderm) 1 patch DAILY TD Last administered on 01/23/22at 10:39; Start 01/22/22 at 15:00 Miscellaneous (Lidoderm Patch Removal) 1 ea QHS MC Last administered on 01/22/22at 23:00; Start 01/22/22 at 21:00 Albuterol/ Ipratropium (Duoneb) 3 ml RTQID PRN NEB SHORTNESS OF BREATH; Start 01/22/22 at 19:15 Potassium Chloride (Klor-Con) 40 meq 1X ONCE PO Last administered on 01/22/22at 21:06; Start 01/22/22 at 20:00; Stop 01/22/22 at 20:01; Status DC Acetaminophen (Tylenol) 650 mg PRN Q6HRS PRN PO MILD PAIN / TEMP > 100.3'F Last administered on 01/22/22at 23:48; Start 01/22/22 at 23:45 Tramadol HCl (Ultram) 50 mg PRN Q6HRS PRN PO PAIN MODERATE/SEVERE; Start 01/22/22 at 23:45 Sodium Chloride 200 ml @ 50 mls/hr 1X ONCE IV Last administered on 01/23/22 11:30; Start 01/23/22 at 11:30; Stop 01/23/22 at 15:29; Status DC Glycerin/ Hypromellose/ Polyethylene (Artificial Tears) 1 drop QID OS ; Start 01/23/22 at 17:00 Dorzolamide HCl (Trusopt) 1 drop BID OS Last administered on 01/23/22at 19:48; Start 01/23/22 at 21:00 Timolol Maleate (Timoptic 0.5% Ophth) 1 drop BID OS Last administered on 01/23at 19:46; Start 01/23/22 at 21:00 Sodium Chloride 1,000 ml @ 60 mls/hr [id number] IV Last administered on 01/23/22at 19:42; Start 01/23/22 at 18:15 Active Scripts Active Reported Hydrochlorothiazide Tablet (Hydrochlorothiazide) 25 Mg Tablet 25 Mg PO DAILY Refresh Optive Eye Drops (Carboxymethylcellulos/Glycerin) 15 Ml Drops 1 Drop EACHEYE QID Aspercreme 10% Cream (Trolamine Salicylate/Aloe Vera) 35.4 Gm Cream..g. 1 Chip TP QID PRN 14 Days Cosopt Eye Drops (Dorzolamide Hcl/Timolol Maleat) 10 Ml Drops 1 Drop OS BID Atorvastatin Calcium 40 Mg Tablet 40 Mg PO HS Lisinopril 40 Mg Tablet 1 Tab PO QHS Norvasc (Amlodipine Besylate) 5 Mg Tablet 1 Tab PO DAILY Magnesium (Magnesium Oxide) 400 Mg Tablet 400 Mg PO DAILY Metoprolol Tartrate 50 Mg Tablet 1 Tab PO BID Vitals/I & O Vital Sign - Last 24 Hours 01/22/22 01/22/22 01/23/22 01/23/22 23:00 23:59 00:00 01:00 Temp 98.5 98.5 Pulse 66 68 88 Resp 17 18 34 B/P (MAP) 118/65 (82) 127/70 (89) 129/68 (88) Pulse Ox 97 95 98 O2 Delivery Nasal Cannula Nasal Cannula Nasal Cannula Nasal Cannula O2 Flow Rate 6.0 6.0 4.0 4.0 01/23/22 01/23/22 01/23/22 01/23/22 02:00 03:00 04:00 04:00 Temp 98.4 98.4 Pulse 73 68 78 Resp 20 23 22 B/P (MAP) 119/65 (83) 119/65 (83) 124/72 (89) Pulse Ox 98 100 98 O2 Delivery Nasal Cannula Nasal Cannula Nasal Cannula Nasal Cannula O2 Flow Rate 4.0 4.0 4.0 4.0 01/23/22 01/23/22 01/23/22 01/23/22 05:00 06:00 07:00 08:00 Temp 97.7 97.7 Pulse 66 68 70 84 Resp 17 16 16 20 B/P (MAP) 117/70 (86) 139/78 (98) 124/66 (85) 149/71 (97) Pulse Ox 98 96 96 96 O2 Delivery Nasal Cannula Nasal Cannula Nasal Cannula Nasal Cannula O2 Flow Rate 4.0 4.0 4.0 4.0 01/23/22 01/23/22 01/23/22 01/23/22 08:00 10:00 11:00 12:00 Temp 98.6 98.6 Pulse 96 98 80 Resp 16 18 14 B/P (MAP) 117/87 (97) 121/63 (82) 120/60 (80) Pulse Ox 96 92 100 O2 Delivery Nasal Cannula Nasal Cannula Nasal Cannula Nasal Cannula O2 Flow Rate 4.0 2.0 2.0 2.0 01/23/22 01/23/22 01/23/22 01/23/22 12:00 13:00 14:00 16:00 Pulse 74 85 88 Resp 18 18 18 B/P (MAP) 81/51 (61) 98/60 (73) 110/67 (81) Pulse Ox 97 94 94 O2 Delivery Nasal Cannula Nasal Cannula Nasal Cannula Nasal Cannula O2 Flow Rate 2.0 2.0 2.0 2.0 01/23/22 01/23/22 01/23/22 19:01 20:11 22:16 Temp 96.9 97.0 96.9 97.0 Pulse 84 84 Resp 18 18 B/P (MAP) 126/63 (84) 135/66 (89) Pulse Ox 94 93 O2 Delivery Nasal Cannula Nasal Cannula Nasal Cannula O2 Flow Rate 2.0 2.0 2.0 Intake and Output 01/22/22 01/22/22 01/23/22 14:59 22:59 06:59 Intake Total 440 ml 1370 ml Output Total 0 ml 275 ml 125 ml Balance 0 ml 165 ml 1245 ml Justifications for Admission Other Justification Nutrition Consultation Dietary Evaluation: Recommendations by RD: Dietary education by RD Comments: continue with regular diet, honor food preferences and offer snacks/ supplements from unit prn Expected Outcomes/Goals: to meet > 50% est nutr needs Malnutrition Findings: Food and Nutrition Intake (Mod: <75% est energy req 7days Body Fat Depletion (Non Severe: Mod to Severe Weight Status: Underweight MARIA M FRANKS MD Jan 23, 2022 22:35
[2022-01-24 02:30] VITALS: BP 118/74
[2022-01-24 05:19] LABS: CALCIUM 8.5 mg/dL (8.5-10.1); CREATININE 0.7 mg/dL (0.6-1.0); GFR 80.5; MAGNESIUM 1.6 mg/dL (1.8-2.4); PHOSPHORUS 2.2 mg/dL (2.6-4.7); URIC ACID 3.3 mg/dL (2.6-6.0)
[2022-01-24 05:45] LABS: POTASSIUM 2.8 mmol/L (3.5-5.1)
[2022-01-24] MEDS ORDERED: POTASSIUM CHLORIDE 20 MEQ TABLET.ER. PO ONE ×2 (06:30→10:30)
[2022-01-24 07:00] VITALS: BP 150/111
[2022-01-24] MEDS ORDERED: MAGNESIUM SULFATE 4GM 100 ML IV ONE (08:00)
[2022-01-24] MEDS: TIMOLOL 0.5% OPHTH SOLUTION 5ML BOTTLE. OS SCH ×2 (08:15→20:57)
[2022-01-24] MEDS: DORZOLAMIDE 2% OPHTH SOLUTION 10ML BOTTLE. OS SCH ×2 (08:15→20:58)
[2022-01-24] MEDS: POLYVINYL ALCOHOL 1.4% OPHTH SOLUTION 15ML BOTTLE. OS SCH ×4 (08:15→20:56)
[2022-01-24] MEDS: LIDOCAINE (700MG/PATCH) PATCH. TD SCH (08:16)
[2022-01-24 10:51] VITALS: BP 154/83
[2022-01-24] MEDS: IV NORMAL SALINE 1000ML BAG 1,000 ML IV SCH (10:55)
--- NOTE | 2022-01-24 10:57 | PDOC ---
Renal-Progress Notes Subjective Notes Notes NO NEW COMPLAINTS History of Present Illness Hx of present illness STABLE Vitals Vitals Vital Signs Date Time Temp Pulse Resp B/P (MAP) Pulse Ox O2 Delivery O2 Flow Rate FiO2 01/24/22 10:51 90.6 101 18 154/83 (106) 93 Nasal Cannula 2.0 90.6 Weight Weight [ ] I.O. Intake and Output Intake and Output 01/24/22 07:00 Intake Total 300 ml Output Total 1150 ml Balance -850 ml Intake Oral 300 ml Output Urine Total 1150 ml Labs Labs Laboratory Tests Test 01/23/22 16:30 01/24/22 04:55 Sodium Level 123 mmol/L (136-145) 123 mmol/L (136-145) Potassium Level 2.8 mmol/L (3.5-5.1) Chloride Level 90 mmol/L (98-107) Carbon Dioxide Level 28 mmol/L (21-32) Anion Gap 5 (6-14) Blood Urea Nitrogen 11 mg/dL (7-20) Creatinine 0.7 mg/dL (0.6-1.0) Estimated GFR (Cockcroft-Gault) 80.5 Glucose Level 87 mg/dL (70-99) Uric Acid 3.3 mg/dL (2.6-6.0) Calcium Level 8.5 mg/dL (8.5-10.1) Phosphorus Level 2.2 mg/dL (2.6-4.7) Magnesium Level 1.6 mg/dL (1.8-2.4) Micro Micro Microbiology 01/22/22 Urine Culture - Final, Complete Review of Systems Constitutional: yes: alert, oriented Ears/Nose/Throat: Yes: no symptom reported Eyes: Yes: no symptom reported Pulmonary: Yes no symptom reported Cardiovascular: Yes no symptom reported Gastrointestional: Yes: no symptom reported Genitourinary: Yes: no symptom reported Musculoskeletal: Yes: muscle stiffness Skin: Yes no symptom reported Psychiatric/Neurological: Yes: no symptom reported Endocrine: Yes: no symptom reported Physical Exam General Appearance: no apparent distress Skin: warm Respiratory: decreased breath sounds Heart: S1S2 Abdomen: soft, bowel sounds present Genitourinary: bladder flat Extremities: pulses present Neurology: alert Assessment Assessment IMP CRITICAL HYPONATREMIA-NA UP TO 123 LOW K, MAG AND PO4 DEHYDRATION ACUTE MET ENCEPHALOPATHY SUBDURAL HEMATOMA COPD HX-TOBACCO USE PLAN HYDRATION CORRECT ELECTROLYTES MORE 3% SALINE CONSIDER CXRAY NEUROSURGERY EVAL WILL FOLLOW KEREN HAMEED MD Jan 24, 2022 10:57
[2022-01-24] MEDS ORDERED: SODIUM CHLORIDE 3 % 250 ML IV ONE (11:00)
--- NOTE | 2022-01-24 11:47 | PDOC ---
[facility] [facility] PROGRESS NOTE Date of Service DOS: DATE: 01/24/22 TIME: 11:44 Chief Complaint Chief Complaint Severe hyponatremia Subdural hematoma Encephalopathy Hypokalemia Weakness and falls Dehydration Tobacco abuse COPD Severe malnutrition History of Present Illness History of Present Illness 01/25/2020 Patient seen and examined She is more alert Sodium is up to 123 Potassium low at 2.8 discussed with RN Chart reviewed Discussed with case fitter 01/23 Patient evaluated examined at bedside. Said she is doing well a little bit pain in her back and backside of her head. Asked if she was discharging home today informed her that was not the plan that even though bleed stable her sodium is critically low. She is very displeased but understands the need for ongoing admission. She is critically ill. 35 minutes critical care time. Vitals/I&O Vitals/I&O: Vital Signs Date Time Temp Pulse Resp B/P (MAP) Pulse Ox O2 Delivery O2 Flow Rate FiO2 01/24/22 10:51 90.6 101 18 154/83 (106) 93 Nasal Cannula 2.0 90.6 I & O 01/23/22 01/23/22 01/24/22 15:00 23:00 07:00 Intake Total 100 ml 100 ml 100 ml Output Total 250 ml 550 ml 350 ml Balance -150 ml -450 ml -250 ml Physical Exam General: Alert, Oriented X3, Cooperative, No acute distress Heart: Regular rate Lungs: Clear Abdomen: Normal bowel sounds, Soft, No tenderness Extremities: No edema, Normal pulses Skin: No breakdown Labs Labs: Laboratory Tests Test 01/23/22 16:30 01/24/22 04:55 Sodium Level 123 mmol/L (136-145) 123 mmol/L (136-145) Potassium Level 2.8 mmol/L (3.5-5.1) Chloride Level 90 mmol/L (98-107) Carbon Dioxide Level 28 mmol/L (21-32) Anion Gap 5 (6-14) Blood Urea Nitrogen 11 mg/dL (7-20) Creatinine 0.7 mg/dL (0.6-1.0) Estimated GFR (Cockcroft-Gault) 80.5 Glucose Level 87 mg/dL (70-99) Uric Acid 3.3 mg/dL (2.6-6.0) Calcium Level 8.5 mg/dL (8.5-10.1) Phosphorus Level 2.2 mg/dL (2.6-4.7) Magnesium Level 1.6 mg/dL (1.8-2.4) Assessment and Plan Assessmemt and Plan Severe hyponatremia Subdural hematoma Encephalopathy Hypokalemia Weakness and falls Dehydration Tobacco abuse COPD Severe malnutrition Plan Hypertonic saline per nephrology Replace potassium Trend labs Home meds DVT prophylaxis Full code Encourage p.o. intake PT OT Suspect she might need prison after discharge Per nephrology recommendations please see the following; CRITICAL HYPONATREMIA-NA UP TO 123 LOW K, MAG AND PO4 DEHYDRATION ACUTE MET ENCEPHALOPATHY SUBDURAL HEMATOMA COPD HX-TOBACCO USE PLAN HYDRATION CORRECT ELECTROLYTES MORE 3% SALINE CONSIDER CXRAY NEUROSURGERY EVAL WILL FOLLOW Comment Review of Relevant I have reviewed the following items yanet (where applicable) has been applied. Medications: Current Medications Medications (Trade) Dose Ordered Sig/Cary Route PRN Reason Start Time Stop Time Status Last Admin Dose Admin Glycerin/ Hypromellose/ Polyethylene (Artificial Tears) 1 drop QID OS 01/23/22 17:00 01/24/22 08:15 Dorzolamide HCl (Trusopt) 1 drop BID OS 01/23/22 21:00 01/24/22 08:15 Timolol Maleate (Timoptic 0.5% [facility]) 1 drop BID OS 01/23/22 21:00 01/24/22 08:15 Sodium Chloride 1,000 ml @ 60 mls/hr [id number] IV 01/23/22 18:15 01/23/22 19:42 Potassium Chloride (Klor-Con) 40 meq 1X ONCE PO 01/24/22 06:30 01/24/22 06:31 DC 01/24/22 06:36 Potassium Chloride (Klor-Con) 40 meq 1X ONCE PO 01/24/22 10:30 01/24/22 10:31 DC 01/24/22 10:29 Magnesium Sulfate 100 ml @ 25 mls/hr 1X ONCE IV 01/24/22 08:00 01/24/22 11:59 01/24/22 08:14 Sodium Phosphate 15 mmol/Sodium Chloride 105 ml @ 105 mls/hr 1X ONCE IV 01/24/22 12:00 01/24/22 12:59 01/24/22 11:36 Sodium Chloride 250 ml @ 50 mls/hr 1X ONCE IV 01/24/22 11:00 01/24/22 15:59 01/24/22 11:36 Justifications for Admission Other Justification DALILA WONG III DO Jan 24, 2022 11:47
[2022-01-24] MEDS ORDERED: SODIUM PHOSPHATE 15 MMOL in IV NORMAL SALINE 100ML 100 ML IV ONE (12:00)
[2022-01-24 12:24] LABS: UR POTASSIUM 17.8 mmol/L (Not Estab.)
[2022-01-24 14:38] VITALS: BP 140/68
[2022-01-24 19:00] VITALS: BP 166/86
[2022-01-24] MEDS: PATCH REMOVAL. MC SCH (20:55)
[2022-01-24] MEDS: traMADol 50 MG TABLET PO PRN (22:26)
[2022-01-24 22:39] VITALS: BP 140/73
[2022-01-25 02:29] VITALS: BP 115/63
[2022-01-25] MEDS: IV NORMAL SALINE 1000ML BAG 1,000 ML IV SCH ×2 (03:35→20:15)
[2022-01-25 07:00] VITALS: BP 134/67
[2022-01-25 07:36] LABS: CALCIUM 8.1 mg/dL (8.5-10.1); CREATININE 0.7 mg/dL (0.6-1.0); GFR 80.5; MAGNESIUM 1.8 mg/dL (1.8-2.4); PHOSPHORUS 2.3 mg/dL (2.6-4.7); POTASSIUM 3.4 mmol/L (3.5-5.1)
[2022-01-25] MEDS: DORZOLAMIDE 2% OPHTH SOLUTION 10ML BOTTLE. OS SCH ×2 (08:05→21:00)
[2022-01-25] MEDS: TIMOLOL 0.5% OPHTH SOLUTION 5ML BOTTLE. OS SCH ×2 (08:05→21:00)
[2022-01-25] MEDS: LIDOCAINE (700MG/PATCH) PATCH. TD SCH (08:05)
[2022-01-25] MEDS: POLYVINYL ALCOHOL 1.4% OPHTH SOLUTION 15ML BOTTLE. OS SCH ×4 (08:05→21:00)
--- NOTE | 2022-01-25 10:56 | PDOC ---
Renal-Progress Notes Subjective Notes Notes NO NEW COMPLAINTS History of Present Illness Hx of present illness STABLE Vitals Vitals Vital Signs Date Time Temp Pulse Resp B/P (MAP) Pulse Ox O2 Delivery O2 Flow Rate FiO2 01/25/22 08:00 Nasal Cannula 01/25/22 07:00 96.5 88 18 134/67 (89) 98 2.0 96.5 Weight Weight [ ] I.O. Intake and Output Intake and Output 01/25/22 07:00 Intake Total 1524 ml Output Total 1750 ml Balance -226 ml Intake Oral 250 ml IV Total 1274 ml Output Urine Total 1750 ml Labs Labs Laboratory Tests Test 01/25/22 06:20 Sodium Level 133 mmol/L (136-145) Potassium Level 3.4 mmol/L (3.5-5.1) Chloride Level 99 mmol/L (98-107) Carbon Dioxide Level 27 mmol/L (21-32) Anion Gap 7 (6-14) Blood Urea Nitrogen 7 mg/dL (7-20) Creatinine 0.7 mg/dL (0.6-1.0) Estimated GFR (Cockcroft-Gault) 80.5 Glucose Level 75 mg/dL (70-99) Calcium Level 8.1 mg/dL (8.5-10.1) Phosphorus Level 2.3 mg/dL (2.6-4.7) Magnesium Level 1.8 mg/dL (1.8-2.4) Micro Micro Microbiology 01/22/22 Urine Culture - Final, Complete Review of Systems Constitutional: yes: alert, oriented Ears/Nose/Throat: Yes: no symptom reported Eyes: Yes: no symptom reported Pulmonary: Yes no symptom reported Cardiovascular: Yes no symptom reported Gastrointestional: Yes: no symptom reported Genitourinary: Yes: no symptom reported Musculoskeletal: Yes: muscle stiffness Skin: Yes no symptom reported Psychiatric/Neurological: Yes: no symptom reported Endocrine: Yes: no symptom reported Physical Exam General Appearance: no apparent distress Skin: warm Respiratory: decreased breath sounds Heart: S1S2 Abdomen: soft, bowel sounds present Genitourinary: bladder flat Extremities: pulses present Neurology: alert Assessment Assessment IMP HYPONATREMIA-ESSENTIALLY RESOLVED LOW K, AND PO4 DEHYDRATION-CORRECTED ACUTE MET ENCEPHALOPATHY SUBDURAL HEMATOMA COPD HX-TOBACCO USE PLAN REPLACE K AND PO4 WILL SIGN OFF KEREN HAMEED MD Jan 25, 2022 10:56
--- NOTE | 2022-01-25 10:58 | PDOC ---
[employer] [facility] PROGRESS NOTE Date of Service DOS: DATE: 01/25/22 TIME: 10:57 Chief Complaint Chief Complaint Severe hyponatremia Subdural hematoma Encephalopathy Hypokalemia Weakness and falls Dehydration Tobacco abuse COPD Severe malnutrition History of Present Illness History of Present Illness 01/25/2022 Patient seen and examined She is weak but stable Her electrolytes are almost normal Discussed with RN Discussed with case management We will discharge to jail at [facility] 01/25/2020 Patient seen and examined She is more alert Sodium is up to 123 Potassium low at 2.8 discussed with RN Chart reviewed Discussed with window caser 01/23 Patient evaluated examined at bedside. Said she is doing well a little bit pain in her back and backside of her head. Asked if she was discharging home today informed her that was not the plan that even though bleed stable her sodium is critically low. She is very displeased but understands the need for ongoing admission. She is critically ill. 35 minutes critical care time. Vitals/I&O Vitals/I&O: Vital Signs Date Time Temp Pulse Resp B/P (MAP) Pulse Ox O2 Delivery O2 Flow Rate FiO2 01/25/22 08:00 Nasal Cannula 01/25/22 07:00 96.5 88 18 134/67 (89) 98 2.0 96.5 I & O 01/24/22 01/24/22 01/25/22 15:00 23:00 07:00 Intake Total 250 ml 1274 ml Output Total 700 ml 150 ml 900 ml Balance -450 ml -150 ml 374 ml Physical Exam General: Alert, Oriented X3, Cooperative, No acute distress Heart: Regular rate Lungs: Clear Abdomen: Normal bowel sounds, Soft, No tenderness Extremities: No edema, Normal pulses Skin: No breakdown Labs Labs: Laboratory Tests Test 01/25/22 06:20 Sodium Level 133 mmol/L (136-145) Potassium Level 3.4 mmol/L (3.5-5.1) Chloride Level 99 mmol/L (98-107) Carbon Dioxide Level 27 mmol/L (21-32) Anion Gap 7 (6-14) Blood Urea Nitrogen 7 mg/dL (7-20) Creatinine 0.7 mg/dL (0.6-1.0) Estimated GFR (Cockcroft-Gault) 80.5 Glucose Level 75 mg/dL (70-99) Calcium Level 8.1 mg/dL (8.5-10.1) Phosphorus Level 2.3 mg/dL (2.6-4.7) Magnesium Level 1.8 mg/dL (1.8-2.4) Assessment and Plan Assessmemt and Plan Severe hyponatremia Subdural hematoma Encephalopathy Hypokalemia Weakness and falls Dehydration Tobacco abuse COPD Severe malnutrition Plan Discharge to jail at [facility] later today For now continue the following IV normal saline Replace potassium Trend labs Home meds DVT prophylaxis Full code Encourage p.o. intake PT OT Discharge to skilled later today Comment Review of Relevant I have reviewed the following items yanet (where applicable) has been applied. Medications: Current Medications Medications (Trade) Dose Ordered Sig/Cary Route PRN Reason Start Time Stop Time Status Last Admin Dose Admin Sodium Phosphate 15 mmol/Sodium Chloride 105 ml @ 105 mls/hr 1X ONCE IV 01/24/22 12:00 01/24/22 12:59 DC 01/24/22 11:36 Sodium Chloride 250 ml @ 50 mls/hr 1X ONCE IV 01/24/22 11:00 01/24/22 15:59 DC 01/24/22 11:36 Justifications for Admission Other Justification DALILA WONG III DO Jan 25, 2022 10:58
[2022-01-25 11:00] VITALS: BP 99/62
[2022-01-25] MEDS ORDERED: TRAM50TA PO (11:00)
[2022-01-25] MEDS ORDERED: LIDO700A21 TD (11:00)
[2022-01-25] MEDS ORDERED: TIMO5DRO5 OS (11:00)
--- NOTE | 2022-01-25 11:02 | SNU/HH DC ---
DISCHARGE ORDERS DISCHARGE INFORMATION: CONDITION ON DISCHARGE: Stable CODE STATUS: Code Status: Full FCI: SNF STAY <30 DAYS: Yes HOSPICE: HOSPICE: No HOSPICE EVAL & TREAT: No LTAC: ADMIT TO LTAC: No POST DISCHARGE ORDERS: ACTIVITY ORDERS: Activity as tolerated WEIGHT BEARING STATUS: As tolerated DIET AFTER DISCHARGE: Cardiac TREATMENT/EQUIPMENT ORDERS: Physical Therapy For: Evalulation/Treatment Occupational Therapy For: Evaluation/Treatment DISCHARGE MEDICATIONS: Home Meds Active Scripts Lidocaine (Lidocaine PATCH ) 1 Each Adh..patch, 1 PATCH TD DAILY for . for 30 Days, #30 PATCH Prov:CASTLE,NIAL K III DO 01/25/22 Tramadol Hcl (TRAMADOL HCL) 50 Mg Tablet, 50 MG PO PRN Q6HRS PRN for PAIN MODERATE/SEVERE for 14 Days, #20 TAB Prov:CASTLE,NIAL K III DO 01/25/22 Timolol Maleate (Timolol Maleate) 5 Ml Drops, 1 DROP OS BID for . for 30 Days, #1 DROP Prov:CASTLE,NIAL K III DO 01/25/22 Reported Medications Hydrochlorothiazide (HYDROCHLOROTHIAZIDE TABLET ) 25 Mg Tablet, 25 MG PO DAILY for DIURETIC, TAB 0 Refills 01/22/22 Carboxymethylcellulos/Glycerin (REFRESH OPTIVE EYE DROPS) 15 Ml Drops, 1 DROP EACHEYE QID for dry eyes, #30 ML 6 Refills 01/22/22 Trolamine Salicylate/Aloe Vera (ASPERCREME 10% CREAM) 35.4 Gm Cream..g., 1 RAHUL TP QID PRN for back pain for 14 Days, GM 0 Refills 01/22/22 Dorzolamide Hcl/Timolol Maleat (COSOPT EYE DROPS) 10 Ml Drops, 1 DROP OS BID for glaucoma, #10 ML 0 Refills 01/22/22 Atorvastatin Calcium (ATORVASTATIN CALCIUM) 40 Mg Tablet, 40 MG PO HS for FOR CHOLESTEROL, #30 TAB 0 Refills 01/22/22 Lisinopril (LISINOPRIL) 40 Mg Tablet, 1 TAB PO QHS for heart/BP, #30 TAB 5 Refills 01/22/22 Amlodipine Besylate (NORVASC) 5 Mg Tablet, 1 TAB PO DAILY for BP, #30 TAB 5 Refills 01/22/22 Magnesium Oxide (Magnesium) 400 Mg Tablet, 400 MG PO DAILY for replacement, TAB 01/22/22 Metoprolol Tartrate (METOPROLOL TARTRATE) 50 Mg Tablet, 1 TAB PO BID, #60 TAB 5 Refills 05/16/17 Discontinued Reported Medications Atorvastatin Calcium (ATORVASTATIN CALCIUM) 20 Mg Tablet, 1 TAB PO at hs for cholestrol, #30 TAB 5 Refills 01/22/22 Lisinopril (LISINOPRIL) 5 Mg Tablet, 1 TAB PO HS for heart/BP, #30 TAB 5 Refills 01/22/22 DALILA WONG III DO Jan 25, 2022 11:02
--- NOTE | 2022-01-25 11:03 | SNU/HH DC ---
DISCHARGE ORDERS DISCHARGE INFORMATION: CONDITION ON DISCHARGE: Stable CODE STATUS: Code Status: Full CORRECTION: SNF STAY <30 DAYS: Yes HOSPICE: HOSPICE: No HOSPICE EVAL & TREAT: No LTAC: ADMIT TO LTAC: No POST DISCHARGE ORDERS: ACTIVITY ORDERS: Activity as tolerated WEIGHT BEARING STATUS: As tolerated DIET AFTER DISCHARGE: Cardiac TREATMENT/EQUIPMENT ORDERS: Physical Therapy For: Evalulation/Treatment Occupational Therapy For: Evaluation/Treatment DISCHARGE MEDICATIONS: Home Meds Active Scripts Lidocaine (Lidocaine PATCH ) 1 Each Adh..patch, 1 PATCH TD DAILY for . for 30 Days, #30 PATCH Prov:CASTLE,NIAL K III DO 01/25/22 Tramadol Hcl (TRAMADOL HCL) 50 Mg Tablet, 50 MG PO PRN Q6HRS PRN for PAIN MODERATE/SEVERE for 14 Days, #20 TAB Prov:CASTLE,NIAL K III DO 01/25/22 Timolol Maleate (Timolol Maleate) 5 Ml Drops, 1 DROP OS BID for . for 30 Days, #1 DROP Prov:CASTLE,NIAL K III DO 01/25/22 Reported Medications Carboxymethylcellulos/Glycerin (REFRESH OPTIVE EYE DROPS) 15 Ml Drops, 1 DROP EACHEYE QID for dry eyes, #30 ML 6 Refills 01/22/22 Trolamine Salicylate/Aloe Vera (ASPERCREME 10% CREAM) 35.4 Gm Cream..g., 1 RAHUL TP QID PRN for back pain for 14 Days, GM 0 Refills 01/22/22 Dorzolamide Hcl/Timolol Maleat (COSOPT EYE DROPS) 10 Ml Drops, 1 DROP OS BID for glaucoma, #10 ML 0 Refills 01/22/22 Atorvastatin Calcium (ATORVASTATIN CALCIUM) 40 Mg Tablet, 40 MG PO HS for FOR CHOLESTEROL, #30 TAB 0 Refills 01/22/22 Lisinopril (LISINOPRIL) 40 Mg Tablet, 1 TAB PO QHS for heart/BP, #30 TAB 5 Refills 01/22/22 Amlodipine Besylate (NORVASC) 5 Mg Tablet, 1 TAB PO DAILY for BP, #30 TAB 5 Refills 01/22/22 Magnesium Oxide (Magnesium) 400 Mg Tablet, 400 MG PO DAILY for replacement, TAB 01/22/22 Metoprolol Tartrate (METOPROLOL TARTRATE) 50 Mg Tablet, 1 TAB PO BID, #60 TAB 5 Refills 05/16/17 Discontinued Reported Medications Hydrochlorothiazide (HYDROCHLOROTHIAZIDE TABLET ) 25 Mg Tablet, 25 MG PO DAILY for DIURETIC, TAB 0 Refills 01/22/22 Atorvastatin Calcium (ATORVASTATIN CALCIUM) 20 Mg Tablet, 1 TAB PO at hs for cholestrol, #30 TAB 5 Refills 01/22/22 Lisinopril (LISINOPRIL) 5 Mg Tablet, 1 TAB PO HS for heart/BP, #30 TAB 5 Refills 01/22/22 DALILA WONG III DO Jan 25, 2022 11:03
--- NOTE | 2022-01-25 11:07 | SNU/HH DC ---
DISCHARGE ORDERS DISCHARGE INFORMATION: CONDITION ON DISCHARGE: Stable CODE STATUS: Code Status: Full SNF: SNF STAY <30 DAYS: Yes HOSPICE: HOSPICE: No HOSPICE EVAL & TREAT: No LTAC: ADMIT TO LTAC: No POST DISCHARGE ORDERS: ACTIVITY ORDERS: Activity as tolerated WEIGHT BEARING STATUS: As tolerated DIET AFTER DISCHARGE: Cardiac TREATMENT/EQUIPMENT ORDERS: Physical Therapy For: Evalulation/Treatment Occupational Therapy For: Evaluation/Treatment DISCHARGE MEDICATIONS: Home Meds Active Scripts Lidocaine (Lidocaine PATCH ) 1 Each Adh..patch, 1 PATCH TD DAILY for . for 30 Days, #30 PATCH Prov:CASTLE,NIAL K III DO 01/25/22 Tramadol Hcl (TRAMADOL HCL) 50 Mg Tablet, 50 MG PO PRN Q6HRS PRN for PAIN MODERATE/SEVERE for 14 Days, #20 TAB Prov:CASTLE,NIAL K III DO 01/25/22 Timolol Maleate (Timolol Maleate) 5 Ml Drops, 1 DROP OS BID for . for 30 Days, #1 DROP Prov:CASTLE,NIAL K III DO 01/25/22 Reported Medications Carboxymethylcellulos/Glycerin (REFRESH OPTIVE EYE DROPS) 15 Ml Drops, 1 DROP EACHEYE QID for dry eyes, #30 ML 6 Refills 01/22/22 Trolamine Salicylate/Aloe Vera (ASPERCREME 10% CREAM) 35.4 Gm Cream..g., 1 RAHUL TP QID PRN for back pain for 14 Days, GM 0 Refills 01/22/22 Dorzolamide Hcl/Timolol Maleat (COSOPT EYE DROPS) 10 Ml Drops, 1 DROP OS BID for glaucoma, #10 ML 0 Refills 01/22/22 Atorvastatin Calcium (ATORVASTATIN CALCIUM) 40 Mg Tablet, 40 MG PO HS for FOR CHOLESTEROL, #30 TAB 0 Refills 01/22/22 Amlodipine Besylate (NORVASC) 5 Mg Tablet, 1 TAB PO DAILY for BP, #30 TAB 5 Refills 01/22/22 Magnesium Oxide (Magnesium) 400 Mg Tablet, 400 MG PO DAILY for replacement, TAB 01/22/22 Metoprolol Tartrate (METOPROLOL TARTRATE) 50 Mg Tablet, 1 TAB PO BID, #60 TAB 5 Refills 05/16/17 Discontinued Reported Medications Hydrochlorothiazide (HYDROCHLOROTHIAZIDE TABLET ) 25 Mg Tablet, 25 MG PO DAILY for DIURETIC, TAB 0 Refills 01/22/22 Lisinopril (LISINOPRIL) 40 Mg Tablet, 1 TAB PO QHS for heart/BP, #30 TAB 5 Refills 01/22/22 Atorvastatin Calcium (ATORVASTATIN CALCIUM) 20 Mg Tablet, 1 TAB PO at hs for cholestrol, #30 TAB 5 Refills 01/22/22 Lisinopril (LISINOPRIL) 5 Mg Tablet, 1 TAB PO HS for heart/BP, #30 TAB 5 Refills 01/22/22 DALILA WONG III DO Jan 25, 2022 11:07
[2022-01-25] MEDS ORDERED: POTASSIUM CHLORIDE 20 MEQ TABLET.ER. PO ONE (11:30)
--- NOTE | 2022-01-25 11:47 | DS ---
DATE OF DISCHARGE: 01/25/2022 ADMISSION DIAGNOSES: 1. Severe hyponatremia. 2. Subdural hematoma. 3. Weakness. 4. Dehydration. DISCHARGE DIAGNOSES: 1. Resolving severe hyponatremia. 2. Resolving weakness. 3. Resolving subdural hematoma. 4. History of tobacco abuse. 5. Chronic obstructive pulmonary disease. 6. Malnutrition. 7. Falls. CONSULTS: Alexx Alonso MD, Neurosurgery and Dr. Vazquez, Nephrology. PROCEDURES: None. HOSPITAL COURSE: The patient is a pleasant, elderly female who presented with weakness and falls. She was lightheaded. While in the ER, she is noted to have severe hyponatremia with a sodium level of 115. She also has subdural hematoma. We admitted her and corrected her electrolytes. Today, her sodium level is normal at 133. She is doing well and wants to be discharged. I spoke with the family independence case manager. The plan is to get her to alf at [facility]. DISPOSITION: [facility]. ACTIVITY: As tolerated. DIET: Regular. DISCHARGE MEDICATIONS: Lidocaine patches, timolol eye drops, Ultram 50 q.6, amlodipine 5 a day, atorvastatin 40 a day, Refresh eye drops, Cosopt eye drops, magnesium oxide 400 a day, metoprolol 50 b.i.d., Aspercreme and we stopped her home hydrochlorothiazide. TOTAL TIME: [address]: PATITO/ai TID: [id number]
[2022-01-25] MEDS ORDERED: SODIUM PHOSPHATE 15 MMOL in IV NORMAL SALINE 100ML 100 ML IV ONE (13:00)
[2022-01-25 15:00] VITALS: BP 137/72
[2022-01-25 19:00] VITALS: BP 143/80
[2022-01-25] MEDS: PATCH REMOVAL. MC SCH (21:00)
[2022-01-25 22:56] VITALS: BP 159/84
[2022-01-26 02:50] VITALS: BP 141/80
[2022-01-26 07:00] VITALS: BP 185/57
[2022-01-26] MEDS: LIDOCAINE (700MG/PATCH) PATCH. TD SCH (08:36)
[2022-01-26] MEDS: DORZOLAMIDE 2% OPHTH SOLUTION 10ML BOTTLE. OS SCH ×2 (08:38→20:25)
[2022-01-26] MEDS: POLYVINYL ALCOHOL 1.4% OPHTH SOLUTION 15ML BOTTLE. OS SCH ×4 (08:38→20:25)
[2022-01-26] MEDS: TIMOLOL 0.5% OPHTH SOLUTION 5ML BOTTLE. OS SCH ×2 (08:43→20:25)
[2022-01-26] MEDS ORDERED: hydrALAZINE 20 MG/ML VIAL. IVP PRN (09:00)
--- NOTE | 2022-01-26 09:02 | PDOC ---
[employer] PROGRESS NOTE Date of Service DOS: DATE: 01/26/22 TIME: 09:01 Chief Complaint Chief Complaint Severe hyponatremia Subdural hematoma Encephalopathy Hypokalemia Weakness and falls Dehydration Tobacco abuse COPD Severe malnutrition History of Present Illness History of Present Illness 01/26,. BP up, add PRN, cont to replace potassium, add mag dose today restart her MVI and vit d to rehab soon, I encouraged her to be active in room and get to chair and back often today 01/25/2022 Patient seen and examined She is weak but stable Her electrolytes are almost normal Discussed with RN Discussed with case management We will discharge to correction at [facility] 01/25/2020 Patient seen and examined She is more alert Sodium is up to 123 Potassium low at 2.8 discussed with RN Chart reviewed Discussed with nurse case management 01/23 Patient evaluated examined at bedside. Said she is doing well a little bit pain in her back and backside of her head. Asked if she was discharging home today informed her that was not the plan that even though bleed stable her sodium is critically low. She is very displeased but understands the need for ongoing admission. She is critically ill. 35 minutes critical care time. Vitals/I&O Vitals/I&O: Vital Signs Date Time Temp Pulse Resp B/P (MAP) Pulse Ox O2 Delivery O2 Flow Rate FiO2 01/26/22 02:50 97.7 83 18 141/80 (100) 97 Nasal Cannula 2.0 97.7 I & O 01/25/22 01/25/22 01/26/22 15:00 23:00 07:00 Intake Total 200 ml 150 ml Output Total 500 ml Balance 200 ml 150 ml -500 ml Physical Exam General: Alert, Oriented X3, Cooperative, No acute distress Heart: Regular rate Lungs: Clear Abdomen: Normal bowel sounds, Soft, No tenderness Extremities: No edema, Normal pulses Skin: No breakdown Comment Review of Relevant I have reviewed the following items yanet (where applicable) has been applied. Medications: Current Medications Medications (Trade) Dose Ordered Sig/Cary Route PRN Reason Start Time Stop Time Status Last Admin Dose Admin Potassium Chloride (Klor-Con) 20 meq 1X ONCE PO 01/25/22 11:30 01/25/22 11:31 DC 01/25/22 15:41 Sodium Phosphate 15 mmol/Sodium Chloride 105 ml @ 105 mls/hr 1X ONCE IV 01/25/22 13:00 01/25/22 13:59 DC 01/25/22 15:41 Justifications for Admission Other Justification JATINDER GALLOWAY MD Jan 26, 2022 09:01
[2022-01-26] MEDS ORDERED: POTASSIUM CHLORIDE 20 MEQ TABLET.ER. PO ONE (09:30)
[2022-01-26] MEDS ORDERED: MAGNESIUM SULFATE 2GM 50 ML IV ONE (09:30)
[2022-01-26] MEDS: CHOLECALCIFEROL (VITAMIN D3) 5,000 UNIT CAPSULE PO SCH (10:41)
[2022-01-26] MEDS: MULTIVITAMIN with MINERAL TABLET. PO SCH (10:42)
[2022-01-26 11:00] VITALS: BP 144/82
[2022-01-26] MEDS: IV NORMAL SALINE 1000ML BAG 1,000 ML IV SCH (13:43)
[2022-01-26 15:00] VITALS: BP 121/63
[2022-01-26] MEDS: POTASSIUM & SODIUM PHOSPHATES PACKET. PO SCH ×2 (16:06→20:26)
[2022-01-26 19:00] VITALS: BP 147/84
[2022-01-26] MEDS: PATCH REMOVAL. MC SCH (20:25)
[2022-01-26 23:00] VITALS: BP 154/76
[2022-01-27 03:00] VITALS: BP 165/90
[2022-01-27 06:08] LABS: CALCIUM 8.8 mg/dL (8.5-10.1); CREATININE 0.6 mg/dL (0.6-1.0); GFR 96.2; MAGNESIUM 1.7 mg/dL (1.8-2.4); PHOSPHORUS 3.3 mg/dL (2.6-4.7); POTASSIUM 3.6 mmol/L (3.5-5.1)
[2022-01-27] MEDS: IV NORMAL SALINE 1000ML BAG 1,000 ML IV SCH (06:20)
[2022-01-27 07:00] VITALS: BP 148/85
[2022-01-27] MEDS: POLYVINYL ALCOHOL 1.4% OPHTH SOLUTION 15ML BOTTLE. OS SCH ×4 (09:00→21:00)
[2022-01-27] MEDS: DORZOLAMIDE 2% OPHTH SOLUTION 10ML BOTTLE. OS SCH ×2 (09:00→21:00)
[2022-01-27] MEDS: TIMOLOL 0.5% OPHTH SOLUTION 5ML BOTTLE. OS SCH ×2 (09:00→21:00)
[2022-01-27] MEDS: CHOLECALCIFEROL (VITAMIN D3) 5,000 UNIT CAPSULE PO SCH (09:10)
[2022-01-27] MEDS: MULTIVITAMIN with MINERAL TABLET. PO SCH (09:10)
[2022-01-27] MEDS: LIDOCAINE (700MG/PATCH) PATCH. TD SCH (09:11)
--- NOTE | 2022-01-27 10:53 | PDOC ---
[employer] PROGRESS NOTE Date of Service DOS: DATE: 01/27/22 TIME: 10:51 Chief Complaint Chief Complaint Severe hyponatremia, SIADH, will fluid restrict, Subdural hematoma Encephalopathy, acute on admit, better, Hypokalemia and hypomag, replace Weakness and falls Dehydration Tobacco abuse COPD Severe malnutrition, BMI 16, History of Present Illness History of Present Illness 3.13, better DC tele will need skilled DC iv fluid and starrt fluid restriction repalce mag 01/26,. BP up, add PRN, cont to replace potassium, add mag dose today restart her MVI and vit d to rehab soon, I encouraged her to be active in room and get to chair and back often today 01/25/2022 Patient seen and examined She is weak but stable Her electrolytes are almost normal Discussed with RN Discussed with case management We will discharge to [facility] 01/25/2020 Patient seen and examined She is more alert Sodium is up to 123 Potassium low at 2.8 discussed with RN Chart reviewed Discussed with case repairer 01/23 Patient evaluated examined at bedside. Said she is doing well a little bit pain in her back and backside of her head. Asked if she was discharging home today informed her that was not the plan that even though bleed stable her sodium is critically low. She is very displeased but understands the need for ongoing admission. She is critically ill. 35 minutes critical care time. Vitals/I&O Vitals/I&O: Vital Signs Date Time Temp Pulse Resp B/P (MAP) Pulse Ox O2 Delivery O2 Flow Rate FiO2 01/27/22 09:39 98 Nasal Cannula 2.0 01/27/22 07:00 98.1 113 19 148/85 (106) 98.1 I & O 01/26/22 01/26/22 01/27/22 15:00 23:00 07:00 Intake Total 150 ml 100 ml Output Total 200 ml 750 ml Balance -50 ml -650 ml Physical Exam General: Alert, Oriented X3, Cooperative, No acute distress Heart: Regular rate Lungs: Clear Abdomen: Normal bowel sounds, Soft, No tenderness Extremities: No edema, Normal pulses Skin: No breakdown Labs Labs: Laboratory Tests Test 01/27/22 05:20 Sodium Level 128 mmol/L (136-145) Potassium Level 3.6 mmol/L (3.5-5.1) Chloride Level 94 mmol/L (98-107) Carbon Dioxide Level 24 mmol/L (21-32) Anion Gap 10 (6-14) Blood Urea Nitrogen 7 mg/dL (7-20) Creatinine 0.6 mg/dL (0.6-1.0) Estimated GFR (Cockcroft-Gault) 96.2 Glucose Level 101 mg/dL (70-99) Calcium Level 8.8 mg/dL (8.5-10.1) Phosphorus Level 3.3 mg/dL (2.6-4.7) Magnesium Level 1.7 mg/dL (1.8-2.4) Comment Review of Relevant I have reviewed the following items yanet (where applicable) has been applied. Medications: Current Medications Medications (Trade) Dose Ordered Sig/Cary Route PRN Reason Start Time Stop Time Status Last Admin Dose Admin Potassium Phos/ Sodium Phos (Phos-Nak) 1 pkt Q12HR PO 01/26/22 15:00 01/26/22 21:01 DC 01/26/22 20:26 Justifications for Admission Other Justification JATINDER GALLOWAY MD Jan 27, 2022 10:53
[2022-01-27 11:00] VITALS: BP 137/83
[2022-01-27] MEDS ORDERED: MAGNESIUM SULFATE 2GM 50 ML IV ONE (12:00)
[2022-01-27] MEDS: traMADol 50 MG TABLET PO PRN (14:13)
[2022-01-27 15:00] VITALS: BP 137/83
[2022-01-27 19:00] VITALS: BP 111/77
[2022-01-27] MEDS: PATCH REMOVAL. MC SCH (21:00)
[2022-01-27 22:42] VITALS: BP 123/64
[2022-01-28 02:45] VITALS: BP 129/72
[2022-01-28 05:48] LABS: HEMATOCRIT 32.8 % (36.0-47.0); HEMOGLOBIN 11.1 g/dL (12.0-15.5); RED BLOOD COUNT 3.71 x10^6/uL (3.50-5.40); RED CELL DISTRIBUTION WIDTH 13.4 % (11.5-14.5); WHITE BLOOD COUNT 5.8 x10^3/uL (4.0-11.0)
[2022-01-28 06:08] LABS: ALBUMIN 2.6 g/dL (3.4-5.0); ALBUMIN/GLOBULIN RATIO 0.7 (1.0-1.7); CALCIUM 8.7 mg/dL (8.5-10.1); CREATININE 0.7 mg/dL (0.6-1.0); GFR 80.5; POTASSIUM 3.4 mmol/L (3.5-5.1); TOTAL BILIRUBIN 0.9 mg/dL (0.2-1.0); TOTAL PROTEIN 6.2 g/dL (6.4-8.2)
[2022-01-28 07:00] VITALS: BP 158/95
[2022-01-28] MEDS: LIDOCAINE (700MG/PATCH) PATCH. TD SCH (07:42)
[2022-01-28] MEDS: CHOLECALCIFEROL (VITAMIN D3) 5,000 UNIT CAPSULE PO SCH (07:42)
[2022-01-28] MEDS: MULTIVITAMIN with MINERAL TABLET. PO SCH (07:42)
[2022-01-28] MEDS: TIMOLOL 0.5% OPHTH SOLUTION 5ML BOTTLE. OS SCH (07:43)
[2022-01-28] MEDS: POLYVINYL ALCOHOL 1.4% OPHTH SOLUTION 15ML BOTTLE. OS SCH ×2 (07:43→10:43)
[2022-01-28] MEDS: DORZOLAMIDE 2% OPHTH SOLUTION 10ML BOTTLE. OS SCH (07:43)
[2022-01-28 10:59] VITALS: BP 130/80
--- NOTE | 2022-01-28 11:06 | SNU/HH DC ---
DISCHARGE ORDERS DISCHARGE INFORMATION: CONDITION ON DISCHARGE: Stable CODE STATUS: Code Status: Full CARE HOME: SNF STAY <30 DAYS: Yes HOSPICE: HOSPICE: No HOSPICE EVAL & TREAT: No LTAC: ADMIT TO LTAC: No POST DISCHARGE ORDERS: ACTIVITY ORDERS: Activity as tolerated WEIGHT BEARING STATUS: No restrictions DIET AFTER DISCHARGE: Cardiac WOUND/INCISION CARE: No wound care needed TREATMENT/EQUIPMENT ORDERS: Physical Therapy For: Evalulation/Treatment Occupational Therapy For: Evaluation/Treatment DISCHARGE MEDICATIONS: Home Meds Active Scripts Lidocaine (Lidocaine PATCH ) 1 Each Adh..patch, 1 PATCH TD DAILY for . for 30 Days, #30 PATCH Prov:CASTLE,NIAL K III DO 01/25/22 Tramadol Hcl (TRAMADOL HCL) 50 Mg Tablet, 50 MG PO PRN Q6HRS PRN for PAIN MODERATE/SEVERE for 14 Days, #20 TAB Prov:CASTLE,NIAL K III DO 01/25/22 Timolol Maleate (Timolol Maleate) 5 Ml Drops, 1 DROP OS BID for . for 30 Days, #1 DROP Prov:CASTLE,NIAL K III DO 01/25/22 Reported Medications Carboxymethylcellulos/Glycerin (REFRESH OPTIVE EYE DROPS) 15 Ml Drops, 1 DROP EACHEYE QID for dry eyes, #30 ML 6 Refills 01/22/22 Trolamine Salicylate/Aloe Vera (ASPERCREME 10% CREAM) 35.4 Gm Cream..g., 1 RAHUL T P QID PRN for back pain for 14 Days, GM 0 Refills 01/22/22 Dorzolamide Hcl/Timolol Maleat (COSOPT EYE DROPS) 10 Ml Drops, 1 DROP OS BID for glaucoma, #10 ML 0 Refills 01/22/22 Atorvastatin Calcium (ATORVASTATIN CALCIUM) 40 Mg Tablet, 40 MG PO HS for FOR CHOLESTEROL, #30 TAB 0 Refills 01/22/22 Amlodipine Besylate (NORVASC) 5 Mg Tablet, 1 TAB PO DAILY for BP, #30 TAB 5 Refills 01/22/22 Magnesium Oxide (Magnesium) 400 Mg Tablet, 400 MG PO DAILY for replacement, TAB 01/22/22 Metoprolol Tartrate (METOPROLOL TARTRATE) 50 Mg Tablet, 1 TAB PO BID, #60 TAB 5 Refills 05/16/17 Discontinued Reported Medications Hydrochlorothiazide (HYDROCHLOROTHIAZIDE TABLET ) 25 Mg Tablet, 25 MG PO DAILY for DIURETIC, TAB 0 Refills 01/22/22 Lisinopril (LISINOPRIL) 40 Mg Tablet, 1 TAB PO QHS for heart/BP, #30 TAB 5 Refills 01/22/22 Atorvastatin Calcium (ATORVASTATIN CALCIUM) 20 Mg Tablet, 1 TAB PO at hs for cholestrol, #30 TAB 5 Refills 01/22/22 Lisinopril (LISINOPRIL) 5 Mg Tablet, 1 TAB PO HS for heart/BP, #30 TAB 5 Refills 01/22/22 DALILA WONG III DO Jan 28, 2022 11:06
[2022-01-28 15:00] VITALS: BP 117/66
--- NOTE | 2022-01-29 12:39 | DS ---
DATE OF DISCHARGE: 01/28/2022 ADMITTING DIAGNOSIS: Subdural hematoma. DISCHARGE DIAGNOSES: Resolving subdural hematoma, history of hyponatremia, resolving weakness, resolving malnutrition, chronic obstructive pulmonary disease, tobacco abuse, falls. HOSPITAL COURSE: Please see the previous dictation done on 01/25/2022. PATITO/MEGHAN DR: Justin TID: [id number]
== END 2022-01-28 17:20 | DRG 85 ==
LOC: 1 WEST ICU 09:51 → 6 SOUTH 01-23 18:42
PROVIDERS: ADMIT Internal Medicine; ATTEND Internal Medicine
DX: S06.5X0A Traumatic subdural hemorrhage without loss of consciousness, initial encounter (principal); G93.41 Metabolic encephalopathy; E43 Unspecified severe protein-calorie malnutrition; E22.2 Syndrome of inappropriate secretion of antidiuretic hormone; Z68.1 Body mass index [BMI] 19.9 or less, adult; W01.0XXA Fall on same level from slipping, tripping and stumbling without subsequent striking against object, initial encounter; E83.42 Hypomagnesemia; E86.0 Dehydration; E87.6 Hypokalemia; F17.210 Nicotine dependence, cigarettes, uncomplicated; I10 Essential (primary) hypertension; J44.9 Chronic obstructive pulmonary disease, unspecified; M54.50 Low back pain, unspecified; Y93.89 Activity, other specified; Y92.89 Other specified places as the place of occurrence of the external cause; Y99.8 Other external cause status; Z20.822 Contact with and (suspected) exposure to COVID-19
CPT/HCPCS: 36415; 70450; 80048; 80053; 81001; 82436; 83735; 83930; 83935; 84100; 84133; 84295; 84300; 84550; 85025; 85027; 87086; 94640; 94760; J3475; J3490; J7030; U0003; 97116-GP; 97530-GO; 97530-GP; 97535-GO; G0378